=== PATIENT | female | born 1975 | race Caucasian/White ===

== ENCOUNTER 2020-03-01 07:51 | Day surgery (SDC) | payer BC ==
[~2020-03-01] VITALS: Ht 160 cm; Wt 95.0 kg
[2020-03-01] VITALS (10 sets, daily range): BP systolic 42–143; BP diastolic 73–91
[~2020-03-01 07:51] MED LIST: CETI10CA PO
--- OUTSIDE RECORDS SUMMARY | 2020-03-01 07:56 | XMS REPORT | Continuity of Care Document ---
Author Organization Unknown Address Unknown Phone Unavailable Allergies Active Description Code Type Severity Reaction Onset Reported/Identified Relationship to Patient Clinical Status Yes No Known Drug Allergies [id number] Drug Allergy Unknown N/A 03/27/2010 Medications There is no data. Problems There is no data. Procedures There is no data. Results Test Result Range CULTURE, URINE - 04/18/19 09:45 CULTURE, URINE, ROUTINE SEE NOTE NRG CMP - 11/08/19 12:45 GLUCOSE 67 mg/dL 65-99 UREA NITROGEN (BUN) 17 mg/dL 7-25 CREATININE 0.84 mg/dL 0.50-1.10 eGFR NON-AFR. [place] 85 mL/min/1.73m2 > OR = 60 eGFR 98 mL/min/1.73m2 > OR = 60 BUN/CREATININE RATIO NOT APPLICABLE (calc) 6-22 SODIUM 144 mmol/L 135-146 POTASSIUM 3.9 mmol/L 3.5-5.3 CHLORIDE 108 mmol/L 98-110 CARBON DIOXIDE 23 mmol/L 20-32 CALCIUM 10.1 mg/dL 8.6-10.2 PROTEIN, TOTAL 7.3 g/dL 6.1-8.1 ALBUMIN 4.7 g/dL 3.6-5.1 GLOBULIN 2.6 g/dL (calc) 1.9-3.7 ALBUMIN/GLOBULIN RATIO 1.8 (calc) 1.0-2. 5 BILIRUBIN, TOTAL 0.4 mg/dL 0.2-1.2 ALKALINE PHOSPHATASE 73 U/L 31-125 AST 17 U/L 10-30 ALT 16 U/L 6-29 Encounters ACCT No. Visit Date/Time Discharge Status Pt. Type Provider Facility Loc./Unit Complaint [id number] 02/27/2020 14:20:00 ACT Outpatient GURPREET ORDONEZ [facility] [id number] 11/08/2019 12:45:00 Document Registration [id number] 04/18/2019 11:20:00 Document Registration [id number] 02/29/2020 14:41:[address] Outpatient THEO QUINTANA, BALAJI Welch [facility] RAD LT URET STONE [id number] 02/27/2020 12:24:[address] Outpatient HALI EL APRN [facility] RAD FS DYSURIA,HEMATURIA,LT FLANK P AIN
[2020-03-01] MEDS ORDERED: fentaNYL INJECTION 100 MCG/2 ML AMP ONE ×2 (08:41→10:57)
[2020-03-01] MEDS ORDERED: LACTATED RINGERS 1,000 ML IV PRN (08:43)
[2020-03-01] MEDS ORDERED: fentaNYL INJECTION 100 MCG/2 ML AMP IV ONE (08:45)
--- NOTE | 2020-03-01 08:46 | Diagnostic Imaging Report ---
Indication: Left ureteral calculus There is 7 mm calculus projecting over the left proximal ureter. There is 2 mm calculus projecting over the left renal pelvis. IMPRESSION: Left nephrolithiasis and left ureterolithiasis unchanged from the previous day. Dictated by: Dictated on workstation # [id number]
[2020-03-01] MEDS ORDERED: WATER (STERILE) FOR INJECTION 10 ML ONE (08:47)
[2020-03-01] MEDS ORDERED: cefTRIAXone 1,000 MG IV (ROCEPHIN) VIAL ONE (08:47)
--- NOTE | 2020-03-01 09:45 | Progress Note-Pre Operative ---
Pre-Operative Progress Note H&P Reviewed The H&P was reviewed, patient examined and no changes noted. Date Seen by Provider: Mar 01, 2020 Time Seen by Provider: 09:45 Date H&P Reviewed: Mar 01, 2020 Time H&P Reviewed: 09:45 Pre-Operative Diagnosis: LT PROXIMAL URETERAL STONE BALAJI VENEGAS MD Mar 01, 2020 09:45
--- NOTE | 2020-03-01 09:52 | Progress Note-Post Operative ---
Post-Operative Progess Note Surgeon (s)/Director Of Business Systems (s) Surgeon BALAJI VENEGAS MD Director Of Business Systems: NONE Pre-Operative Diagnosis LT PROXIMAL URETERAL STONE Post-Operative Diagnosis SAME Procedure & Operative Findings Date of Procedure 03/01/20 Procedure Performed/Findings CYSTOSCOPY WITH URETERAL STONE MANIPULATION AND INSERTION OF STENT Anesthesia Type GENERAL Estimated Blood Loss Estimated blood loss (mL): NONE Specimens/Packing Specimens Removed NONE Packing: NONE BALAJI VENEGAS MD Mar 01, 2020 09:51
[2020-03-01] MEDS ORDERED: ESTR10TA9 (10:06)
[2020-03-01] MEDS ORDERED: cefTRIAXone FOR IV USE 1,000 MG in WATER (STERILE) FOR INJECTION 10 ML IV ONE (10:15)
[2020-03-01] MEDS ORDERED: SEVOFLURANE (ULTANE) 15 ML INHAL SOLN ONE ×2 (10:57→11:38)
[2020-03-01] MEDS ORDERED: proPOfol 200 MG/20 ML (DIPRIVAN) VIAL IV ONE (10:57)
[2020-03-01] MEDS ORDERED: MIDAZOLAM 2 MG/2 ML (VERSED) VIAL ONE (10:57)
[2020-03-01] MEDS ORDERED: ONDANSETRON 4 MG/2 ML (SDV) Z0FRAN ONE (10:57)
--- NOTE | 2020-03-01 10:57 | Discharge Inst-Urology ---
Discharge Inst-Urology Reconcile Patient Problems Problems Reviewed?: Yes Final Diagnosis LT PROXIMAL URETERAL STONE Patient Instructions/Follow Up Plan/Assessment/Instructions Please make appointment to been seen in office in 1 week. KUB prior to it KUB on way home Increase oral fluids for 48 hours and then as needed. Diet and Activity as tolerated. If questions or concerns contact your physician Or seek help at emergency department. BALAJI VENEGAS MD Mar 01, 2020 10:56
[2020-03-01] MEDS ORDERED: HYDROmorphone 2 MG/ML VIAL (DILAUDID) IV ONE (11:45)
[2020-03-01] MEDS ORDERED: ONDANSETRON 4 MG/2 ML (SDV) Z0FRAN IVP PRN (11:45)
--- NOTE | 2020-03-01 12:15 | Anesthesia-General Post-Op ---
General Patient Condition Mental Status/LOC: Same as Preop Cardiovascular: Satisfactory Nausea/Vomiting: Absent Respiratory: Satisfactory Pain: Controlled Complications: Absent Post Op Complications Complications None Follow Up Care/Instructions Patient Instructions None needed. Anesthesia/Patient Condition Patient Condition Patient is doing well, no complaints, stable vital signs, no apparent adverse anesthesia problems. No complications reported per nursing. D/C home per [facility] [place] Criteria: Yes PREETHI CORONA CRNA Mar 01, 2020 12:15
[2020-03-01] MEDS ORDERED: TMSL.4C PO (12:41)
[2020-03-01] MEDS ORDERED: NITR-65 PO (12:41)
[2020-03-01] MEDS ORDERED: PHEN-640 PO (12:41)
[2020-03-01] MEDS ORDERED: TRM50T PO (12:41)
--- NOTE | 2020-03-01 15:12 | Diagnostic Imaging Report ---
INDICATION: Stent placement. TIME OF EXAM: 01:25 p.m. COMPARISON: Correlation is made with prior radiograph from earlier same day. FINDINGS: There has been placement of a double-J nephroureteral stent on the left. This stent extends from the region of left kidney to into the bladder. A calculus in proximal left ureter is adjacent to the proximal aspect of the stent. No other calculi along the course of the stent are identified. No right-sided urinary tract calculi are seen. Bowel gas pattern is unremarkable. IMPRESSION: Left-sided ureteral stent placement, as described. Dictated by: Dictated on workstation # [id number]
--- NOTE | 2020-03-01 22:07 | OPERATIVE REPORT ---
DATE OF SERVICE: 03/01/2020 PREOPERATIVE DIAGNOSIS: Left proximal ureteral stone. POSTOPERATIVE DIAGNOSIS: Left proximal ureteral stone. OPERATION PERFORMED: Cystoscopy with left ureteral stone manipulation and insertion of stent. SURGEON: Justin Venegas MD ANESTHESIA: General. COMPLICATIONS: None. DESCRIPTION OF PROCEDURE: Under satisfactory general anesthesia, the patient in lithotomy position, genitalia were prepped and draped in the usual sterile fashion. A 23-Burmese cystoscope was introduced in the bladder. A 6-Burmese 24 cm double-J stent was passed into the hole of the ureteral orifice guided fluoroscopically to the level of the stone. With some manipulation, I was able to bypass the stone and all the way to the left renal pelvis, removed the guidewire. Stent was seen jetting nicely proximally fluoroscopically and distally endoscopically. Bladder was evacuated and the cystoscope was removed. The patient tolerated the procedure and anesthesia well and was sent to recovery room in stable condition. PLAN: Left ESWL with possible removal of stent in couple of weeks when the machine will be back here. The plan was explained previously to the patient and to her after the surgery. Job ID: [id number] DocumentID: [id number] Dictated Date: 03/01/2020 11:47:51 Curve Cleaner Date: 03/01/2020 22:07:15 Dictated By: JUSTIN VENEGAS MD
== END 2020-03-01 14:20 | disposition home or self-care (01) ==
LOC: SDC 07:51
PROVIDERS: ATTEND Urology
DX: N20.1 Calculus of ureter (principal); N20.0 Calculus of kidney; K21.9 Gastro-esophageal reflux disease without esophagitis; Z79.890 Hormone replacement therapy; Z90.79 Acquired absence of other genital organ(s); Z11.2 Encounter for screening for other bacterial diseases
CPT/HCPCS: 52332; 74018; 76000; 87081; C2625

== ENCOUNTER → 2020-03-05 | Outpatient (CLI) | payer BC ==
[~2020-03-05] MED LIST changes: +ESTR10TA9; +NITR-65 PO; +PHEN-640 PO; +TMSL.4C PO; +TRM50T PO
--- NOTE | 2020-03-05 13:46 | Diagnostic Imaging Report ---
INDICATION: Left ureteral stone. TIME OF EXAM: 12:10 PM. COMPARISON: 03/01/2020. FINDINGS: A left-sided double-J nephroureteral stent is again noted. The calculus adjacent to the proximal aspect of the stent 4 days ago now appears to have migrated and now overlies the tip of the stent in the region of the lower pole of the left kidney. There is a tiny approximately 2 mm calcific density adjacent to the distal aspect of the stent in the left hemipelvis, perhaps a tiny distal left ureteric calculus. There are post surgical changes in the pelvis. The bowel gas pattern is unremarkable. IMPRESSION: 1. Left-sided nephroureteral stent. The larger proximal left ureteric calculus appears to have slightly migrated and now overlies the lower pole of the left kidney. 2. A tiny calcific density overlies the distal aspect of the stent in the distribution of the distal left ureter. Dictated by: Dictated on workstation # [id number]
== END ==
LOC: RAD 11:51
PROVIDERS: ATTEND Urology
DX: N20.1 Calculus of ureter (principal); Z96.0 Presence of urogenital implants
CPT/HCPCS: 74018

== ENCOUNTER 2020-03-12 12:30 | Outpatient (CLI) | payer BC ==
[~2020-03-12] VITALS: Ht 165.1 cm; Wt 95.5 kg
[2020-03-13] MEDS ORDERED: TRM50T PO (12:14)
[2020-03-13] MEDS ORDERED: NITR-65 PO (12:14)
== END 2020-03-12 12:55 | disposition home or self-care (01) ==
LOC: PREOP 12:30
PROVIDERS: ATTEND Urology
DX: Z01.818 Encounter for other preprocedural examination (principal)

== ENCOUNTER 2020-03-13 07:40 | Day surgery (SDC) | payer BC ==
[~2020-03-13] VITALS: Ht 165.1 cm; Wt 95.5 kg
[2020-03-13] VITALS (11 sets, daily range): BP systolic 111–139; BP diastolic 70–89
[2020-03-13] MEDS ORDERED: LACTATED RINGERS 1,000 ML IV PRN (08:09)
[2020-03-13] MEDS ORDERED: cefTRIAXone FOR IV USE 1,000 MG in WATER (STERILE) FOR INJECTION 10 ML IV ONE (08:15)
--- NOTE | 2020-03-13 08:38 | Progress Note-Pre Operative ---
Pre-Operative Progress Note H&P Reviewed The H&P was reviewed, patient examined and no changes noted. Date Seen by Provider: Mar 13, 2020 Time Seen by Provider: 08:37 Date H&P Reviewed: Mar 13, 2020 Time H&P Reviewed: 08:37 Pre-Operative Diagnosis: LT RENAL STONE BALAJI VENEGAS MD Mar 13, 2020 08:38
--- NOTE | 2020-03-13 08:58 | Diagnostic Imaging Report ---
INDICATION: Renal calculi. COMPARISON: 03/05/2020 TECHNIQUE: 2 radiographs of abdomen dated 03/13/2020. FINDINGS: Previously noted left ureteral stent has been removed. 7 mm stone overlying the inferior pole of the left kidney is again identified, appearing stable. Additional 3 mm calcification overlying the superior pole of the left kidney is again identified and stable. 2 rounded calcifications are identified within the lower pelvis, in a similar configuration to prior exams. Prior CT demonstrated these relate to phleboliths. Postsurgical changes within the lower pelvis bilaterally again noted. No calcifications overlying the right renal shadow. Nonobstructive bowel gas pattern. No acute osseous abnormality. Calcifications overlying the right upper quadrant of the abdomen are again noted. IMPRESSION: Stable left renal calculi, including 7 mm stone overlying the inferior pole of the left kidney. Stable calcifications within the lower pelvis bilaterally, felt to relate to phleboliths. Cholelithiasis. Dictated by: Dictated on workstation # [id number]
[2020-03-13] MEDS ORDERED: fentaNYL INJECTION 100 MCG/2 ML AMP ONE (09:17)
[2020-03-13] MEDS ORDERED: MIDAZOLAM 2 MG/2 ML (VERSED) VIAL ONE (09:17)
[2020-03-13] MEDS ORDERED: proPOfol 200 MG/20 ML (DIPRIVAN) VIAL IV ONE (09:17)
[2020-03-13] MEDS ORDERED: LIDOCAINE PF 2% 5 ML (XYLOCAINE) VIAL ONE (09:17)
--- NOTE | 2020-03-13 09:48 | Discharge Inst-Urology ---
Discharge Inst-Urology Reconcile Patient Problems Problems Reviewed?: Yes Final Diagnosis LT RENAL STONE Patient Instructions/Follow Up Plan/Assessment/Instructions Please make appointment to been seen in office Tuesday 03/27, KUB prior to it KUB on way home Post ESWL instructions Increase oral fluids for 48 hours and then as needed. Diet and Activity as tolerated. If questions or concerns contact your physician Or seek help at emergency department. BALAJI VENEGAS MD Mar 13, 2020 09:48
--- NOTE | 2020-03-13 09:49 | Progress Note-Post Operative ---
Post-Operative Progess Note Surgeon (s)/Tamping Machine Operator Road Forms (s) Surgeon BALAJI VENEGAS MD Tamping Machine Operator Road Forms: NONE Pre-Operative Diagnosis LT RENAL STONE Post-Operative Diagnosis SAME Procedure & Operative Findings Date of Procedure 03/13/20 Procedure Performed/Findings LT ESWL Anesthesia Type GENERAL Estimated Blood Loss Estimated blood loss (mL): NONE Specimens/Packing Specimens Removed NONE Packing: NONE BALAJI VENEGAS MD Mar 13, 2020 09:48
[2020-03-13] MEDS ORDERED: SEVOFLURANE (ULTANE) 15 ML INHAL SOLN ONE ×2 (09:55)
[2020-03-13] MEDS ORDERED: KETOROLAC 30 MG/ML VIAL ONE (09:55)
[2020-03-13] MEDS ORDERED: ONDANSETRON 4 MG/2 ML (SDV) Z0FRAN ONE (09:55)
[2020-03-13] MEDS ORDERED: FUROSEMIDE 40 MG/4 ML INJ (LASIX) ONE (09:55)
[2020-03-13] MEDS ORDERED: MEPERIDINE (DEMEROL) INJ 50 MG/ML IVP ONE (10:30)
[2020-03-13] MEDS ORDERED: morphine INJ 10 MG/ML 1ML (SYR OR VIAL) IVP ONE (10:30)
[2020-03-13] MEDS ORDERED: fentaNYL INJECTION 100 MCG/2 ML AMP IVP ONE (10:30)
[2020-03-13] MEDS ORDERED: ONDANSETRON 4 MG/2 ML (SDV) Z0FRAN IVP PRN (10:30)
--- NOTE | 2020-03-13 11:15 | NUR ---
FULLY ALERT, RATES PELVIC DISCOMFORT 2 AND TOLERABLE. PO FLUIDS PROVIDED.
--- NOTE | 2020-03-13 11:25 | Anesthesia-General Post-Op ---
General Patient Condition Mental Status/LOC: Same as Preop Cardiovascular: Satisfactory Nausea/Vomiting: Absent Respiratory: Satisfactory Pain: Controlled Complications: Absent Post Op Complications Complications None Follow Up Care/Instructions Patient Instructions None needed. Anesthesia/Patient Condition Patient Condition Patient is doing well, no complaints, stable vital signs, no apparent adverse anesthesia problems. No complications reported per nursing. YOVANNY MONIQUE CRNA Mar 13, 2020 11:25
--- NOTE | 2020-03-13 11:55 | Diagnostic Imaging Report ---
INDICATION: Status post ESWL. COMPARISON: Earlier same day. FINDINGS: Single frontal radiograph view of the abdomen was obtained and again demonstrates extraosseous calcifications projecting over the left renal fossa. These appear stable in size and position when compared to earlier same day. No new extraosseous calcifications or radiopaque foreign bodies are seen. Small bowel loops are nondistended. There is no large collection of free intraperitoneal air. Osseous structures show no gross acute abnormalities. IMPRESSION: 1. Stable left-sided renal calculi. Dictated by: Dictated on workstation # [id number]
[2020-03-13] MEDS ORDERED: NITR-65 PO (12:14)
[2020-03-13] MEDS ORDERED: TRM50T PO (12:14)
--- NOTE | 2020-03-13 12:15 | NUR ---
VOIDED 500 CC CLEAR, VERY LIGHT PINK URINE WITHOUT PROBLEM. URINE STRAINED, NO STONE FRAGMENTS OBTAINED. REQUESTING DISMISSAL.
--- NOTE | 2020-03-13 17:21 | OPERATIVE REPORT ---
DATE OF SERVICE: 03/13/2020 PREOPERATIVE DIAGNOSIS: Left renal stone. POSTOPERATIVE DIAGNOSIS: Left renal stone. OPERATION PERFORMED: Left ESWL. SURGEON: Justin Venegas MD ANESTHESIA: General. COMPLICATIONS: None. DESCRIPTION OF PROCEDURE: Under satisfactory general anesthesia, the patient in supine position on the ESWL table, the left renal stone was localized. Shocks were delivered at kV of 6. Total of 3000 shocks completely fragmented the stone. The patient received 40 mg of Lasix and 30 mg of Toradol IV at the end of the procedure. He tolerated the procedure and anesthesia well and was sent to recovery room in stable condition. Job ID: [id number] DocumentID: [id number] Dictated Date: 03/13/2020 10:12:02 Chemist Physical Date: 03/13/2020 17:20:35 Dictated By: JUSTIN VENEGAS MD
== END 2020-03-13 12:28 | disposition home or self-care (01) ==
LOC: SDC 07:40
PROVIDERS: ATTEND Urology
DX: N13.2 Hydronephrosis with renal and ureteral calculous obstruction (principal); Z11.2 Encounter for screening for other bacterial diseases; Z79.890 Hormone replacement therapy
CPT/HCPCS: 74018; 87081

== ENCOUNTER → 2020-11-05 | Outpatient (CLI) | payer BC ==
[~2020-11-05] MED LIST changes: +CATHETER FLUSH 10 ML SYR IV PRN
--- NOTE | 2020-11-05 09:42 | Diagnostic Imaging Report ---
INDICATION: Gallstones and abdominal pain. TECHNIQUE: The patient was administered 5.5 mCi of technetium 99m Choletec intravenously and imaging over the abdomen was performed. FINDINGS: There is homogeneous uptake of activity by the liver. There is prompt excretion of activity into the common duct with passage into the small bowel. The gallbladder is nonvisualized out to 105 minutes. IMPRESSION: Nonvisualized gallbladder, concerning for cholecystitis. Dictated by: Dictated on workstation # [id number]
== END ==
LOC: CARD 07:00
PROVIDERS: ATTEND Nurse Practitioner Family
DX: K80.20 Calculus of gallbladder without cholecystitis without obstruction (principal)
CPT/HCPCS: 78226; A9537

== ENCOUNTER 2020-11-21 05:33 | Outpatient (CLI) | payer BC ==
[~2020-11-21] VITALS: Ht 162.6 cm; Wt 95.5 kg
[~2020-11-21 05:33] MED LIST changes: -CATHETER FLUSH 10 ML SYR IV PRN
[2020-11-21] MEDS ORDERED: OXYB-52 PO (11:17)
[2020-11-21] MEDS ORDERED: ESTR2TAB PO (11:17)
[2020-11-21] MEDS ORDERED: FLUT16SP22 NS (11:17)
== END 2020-11-21 12:24 | disposition home or self-care (01) ==
LOC: PREOP 05:33
PROVIDERS: ATTEND Surgery
DX: Z01.818 Encounter for other preprocedural examination (principal)

== ENCOUNTER 2020-11-28 06:50 | Day surgery (SDC) | payer BC ==
[~2020-11-28] VITALS: Ht 166 cm; Wt 95.5 kg
[2020-11-28] VITALS (12 sets, daily range): BP systolic 116–142; BP diastolic 66–92
[~2020-11-28 06:50] MED LIST changes: +ESTR2TAB PO; +FLUT16SP22 NS; +OXYB-52 PO
[2020-11-28] MEDS ORDERED: IOPAMIDOL 61% 30 ML (ISOVUE 300) VIAL ONE (07:11)
[2020-11-28] MEDS ORDERED: LIDOCAINE/EPI 1%-1:100,000 (XYLOCAINE) 20ML ONE (07:12)
[2020-11-28] MEDS ORDERED: ceFAZolin 2 GM IV Premixed 50 ML ONE (07:21)
[2020-11-28] MEDS ORDERED: fentaNYL INJ 100 MCG/2 ML AMP ONE (07:30)
[2020-11-28] MEDS ORDERED: LIDOCAINE PF 2% 5 ML (XYLOCAINE) VIAL ONE (07:30)
[2020-11-28] MEDS ORDERED: LACTATED RINGERS 1,000 ML IV PRN (07:30)
[2020-11-28] MEDS ORDERED: MIDAZOLAM 2 MG/2 ML (VERSED) VIAL ONE (07:30)
[2020-11-28] MEDS ORDERED: proPOfol 200 MG/20 ML (DIPRIVAN) VIAL IV ONE (07:30)
[2020-11-28] MEDS ORDERED: ROCURONIUM 10 MG/ML 5 ML SYRINGE IV ONE ×2 (07:30→08:37)
[2020-11-28] MEDS ORDERED: ceFAZolin 2 GM IV Premixed 50 ML IV ONE (07:30)
[2020-11-28] MEDS ORDERED: SEVOFLURANE (ULTANE) 15 ML INHAL SOLN ONE ×4 (07:30→08:37)
--- NOTE | 2020-11-28 08:24 | Progress Note-Pre Operative ---
Pre-Operative Progress Note H&P Reviewed The H&P was reviewed, patient examined and no changes noted. Time Seen by Provider: 08:21 Date H&P Reviewed: November 28, 2020 Time H&P Reviewed: 08:22 Pre-Operative Diagnosis: Cholelithiasis/cholecystitis NIKKI HOROWITZ DO November 28, 2020 08:24
[2020-11-28] MEDS ORDERED: ONDANSETRON 4 MG/2 ML (SDV) Z0FRAN ONE ×3 (08:37→12:11)
[2020-11-28] MEDS ORDERED: SUCCINYLCHOLINE INJ 100 MG/5 ML SYR/VIAL ONE (08:37)
[2020-11-28] MEDS ORDERED: GLYCOPYRROLATE 0.2 MG/ML (ROBINUL) 2 ML VIAL ONE (08:50)
[2020-11-28] MEDS ORDERED: NEOSTIGMINE 3 MG/3 ML VIAL ONE (08:50)
[2020-11-28] MEDS ORDERED: KETOROLAC 30 MG/ML VIAL ONE (08:50)
[2020-11-28] MEDS ORDERED: PHENYLEPHRINE 100 MCG/ML 10 ML (ANESTHESIA) SYR ONE ×2 (09:11)
[2020-11-28] MEDS ORDERED: morphine INJ 10 MG/ML 1ML (SYR OR VIAL) ONE (09:13)
--- NOTE | 2020-11-28 09:23 | Progress Note-Post Operative ---
Post-Operative Progess Note Surgeon (s)/Contractor General Engineering (s) Surgeon NIKKI HOROWITZ DO Contractor General Engineering: Mo Pre-Operative Diagnosis Cholelithiasis/cholecystitis Post-Operative Diagnosis same Procedure & Operative Findings Date of Procedure 11/28/20 Procedure Performed/Findings PROCEDURE: Laparoscopic cholecystectomy with intraoperative cholangiogram. COMPLICATIONS: None. PROCEDURE: The patient was taken to the operating suite and was prepped and draped in sterile fashion. A surgical pause was performed. Just superior to the umbilicus, a 12 mm incision was made. Dissection was taken down to the fascia, which was then scored and grasped with a Mckenzie and the abdomen was then entered. A 0 Vicryl suture was placed in a paecbr-[id number]-[id number] fashion and a German trocar was placed and secured. Pneumoperitoneum was achieved. A 5mm trochar place in the subxyphoid and 2 in the right upper quadrant. The gallbladder was noted to be contracted and full of stones. Grasped at the fundus and taken in the superior direction. Next attempted to grasp down at teixeira's pouch and pull infero-laterally, but there was a large stone impacted down there. The cystic duct, and cystic artery were then dissected out. The Artery was in the way so it was clipped and cut first. Clip was placed on the distal portion of the cystic duct which was then partially transected. An arrow catheter was inserted into the duct. The cholangiogram was then performed. No filing defects and contrast made its way into the duodenum. Catheter removed. Clips were placed on proximal portion of the cystic duct and then the duct was then transected. Hook cautery was used to dissect the gallbladder from the gallbladder fossa achieving hemostasis. The gallbladder was placed in an Endobag and removed through the 12 mm trocar site. The abdomen was then reinspected. Copious amounts of irrigation were used to irrigate the abdomen and there were no signs of active bleeding. Hemostasis had been achieved. The 12 mm fascial defect was then closed with 0 Vicryl suture that had been placed in a [id number]-[id number]-yeazx fashion. The abdomen was then desufflated, the trocars were removed. The abdomen was then washed and dried. The skin was then closed using 4-0 Monocryl in a subcuticular fashion. The abdomen was washed and dried and Skin Affix was place over incisions. Patient tolerated the procedure well without any complications and was taken to the recovery room in stable condition. Dr. Hassan assisted on this case helping to make incisions, close incisions, identify anatomy and hold anatomy out of the way. Anesthesia Type GET Estimated Blood Loss Estimated blood loss (mL): less than 10ml Specimens/Packing Specimens Removed GB and contents NIKKI HOROWITZ DO November 28, 2020 09:23
[2020-11-28] MEDS ORDERED: ACHD5005 PO (09:24)
--- NOTE | 2020-11-28 09:25 | Discharge Inst-Surgical ---
Discharge Inst-Surgical Depart Medication/Instructions New, Converted or Re-Newed RX: RX Given to Pt/Family Patient Instructions Follow up Appt: Make appointment for 1 week. [phone] Instructions: No lifting greater than 20 pounds. No strenuous activity. May shower in 24 hours, no tub bath or soaking. Use incentive spirometer at home as directed. No Smoking Skin/Wound Care: May remove bandages in am. You need to leave the Dermabond on incision it will fall off on it's own. Symptoms to Report: Appetite Changes, Extremity Discoloration, Numbness/Tingling, Swelling Increased, Bleeding Excessive, Eyesight Changes, Pain Increased, Urine Color Change, Constipation(Persistent), Fever over 101 degree F, Pain/Pressure in chest, Urinating Difficulty, Cough Up/Vomit Blood, Heart Beat Irreg/Pounding, Pain/Pressure in jaw, Cramps in feet or legs, Lightheadedness, Pain/Pressure in shoulder, Diarrhea(Persistent), Memory Changes Suddenly, Questions/Concerns, Weight gain consecutive days, Dizziness/Fainting, Nausea/Vomiting, Shortness of Breath, Weight gain over 2 pounds If questions or concerns contact your physician Or seek help at emergency department. Activity Activity as Tolerated: Yes Activity Instructions: Avoid Stress to Incision Driving Instructions: No Driving/Refer to Diet Discharge Diet: Avoid Fatty Foods, Low Fat/Low Cholesterol If Any Problems/Questions/Issu: Contact Your Physician, Go to Emergency Room Skin/Wound Care Infection Signs and Symptoms: Increased Redness, Foul Odor of Wound, Increased Drainage, Skin Itchy or Has a Rash, Increased Swelling, Temperature Above 101 F Wound Care Comment: heating pad to shoulder or neck for pain tonight Bathing Instructions: Shower Stitches/Griselda/Dermabond Dis: Dermabond Ice Pack: Ice On and Off Site NIKKI HOROWITZ DO November 28, 2020 09:25
[2020-11-28] MEDS: HYDROmorphone 2 MG/ML VIAL (DILAUDID) ONE (09:53)
--- NOTE | 2020-11-28 11:28 | Diagnostic Imaging Report ---
INDICATION: Fluoroscopy for intraoperative cholangiogram. FINDINGS: Fluoroscopy was provided in the OR during intraoperative cholangiogram. 13 seconds of fluoroscopic time was utilized. 77 images were obtained. Images demonstrate contrast being injected via the cystic duct remnant. The intrahepatic and extrahepatic bile ducts are of normal caliber. There is no filling defect to suggest a retained stone. Contrast flows into the duodenum. IMPRESSION: Fluoroscopy during intraoperative cholangiogram. Dictated by: Dictated on workstation # [id number]
[2020-11-28] MEDS ORDERED: HYDROcodone/APAP 5 MG/325 MG (LORTAB) TAB ONE (12:10)
[2020-11-28] MEDS ORDERED: ONDANSETRON 4 MG/2 ML (SDV) Z0FRAN IVP ONE (12:15)
[2020-11-28] MEDS ORDERED: HYDROcodone/APAP 5 MG/325 MG (LORTAB) TAB PO ONE (12:15)
--- NOTE | 2020-11-28 13:14 | Anesthesia-General Post-Op ---
General Patient Condition Mental Status/LOC: Same as Preop Cardiovascular: Satisfactory Nausea/Vomiting: Absent Respiratory: Satisfactory Pain: Controlled Complications: Absent Post Op Complications Complications None Follow Up Care/Instructions Patient Instructions None needed. Anesthesia/Patient Condition Patient Condition Patient is doing well, no complaints, stable vital signs, no apparent adverse anesthesia problems. No complications reported per nursing. ALEXX CUI CRNA November 28, 2020 13:14
[2020-11-28] MEDS ORDERED: PROMETHAZINE INJ 25 MG/ML (PHENERGAN) AMP IVP ONE (13:15)
== END 2020-11-28 14:45 | disposition home or self-care (01) ==
LOC: SDC 06:50
PROVIDERS: ATTEND Surgery
DX: K80.12 Calculus of gallbladder with acute and chronic cholecystitis without obstruction (principal); K21.9 Gastro-esophageal reflux disease without esophagitis; Z79.899 Other long term (current) drug therapy; Z90.710 Acquired absence of both cervix and uterus; Z79.891 Long term (current) use of opiate analgesic; Z83.3 Family history of diabetes mellitus
CPT/HCPCS: 36430; 76000; 87081; 88304; 94664

== ENCOUNTER → 2022-08-29 | Outpatient (CLI) | payer BC ==
[~2022-08-29] MED LIST changes: +ACHD5005 PO; -ESTR2TAB PO; +ESTR2TAB3 PO
--- NOTE | 2022-08-29 16:52 | Diagnostic Imaging Report ---
INDICATION: HX OF CALCULUS OF KIDNEY COMPARISON: 03/13/2020 FINDINGS: Single supine radiographic view of the abdomen was obtained and demonstrates nondistended loops of small bowel. There is no large collection of free peritoneal air. Mild air and stool are seen scattered throughout the colon. No unexpected extraosseous calcifications or radiopaque foreign bodies are seen. Bony structures show no gross acute abnormalities. IMPRESSION: 1. Nonobstructed small bowel gas pattern. 2. No unexpected extraosseous calcifications or radiopaque foreign bodies are seen. Dictated by: Dictated on workstation # [id number]
== END ==
LOC: RAD FS 14:03
PROVIDERS: ATTEND Urology
DX: Z87.442 Personal history of urinary calculi (principal)
CPT/HCPCS: 74018

== ENCOUNTER 2022-09-29 01:10 | Emergency (ER) | payer BC ==
[2022-09-29] MEDS ORDERED: NS IV 1000 ML 1,000 ML IV STA (01:17)
--- NOTE | 2022-09-29 01:21 | ED General ---
General Chief Complaint: Allergic Reaction Stated Complaint: ALLERGIC REACTION Source of Information: Patient Exam Limitations: No Limitations History of Present Illness Date Seen by Provider: Sep 29, 2022 Time Seen by Provider: 01:12 Initial Comments 46-year-old female presenting due to concerns for an allergic reaction. She had some roast for dinner with a new seasoning, about an hour and a half later noticed a sore throat, shortly after that noticed some hives. About an hour ago noticed her lip was swelling and she feels chest tightness. This is never happened before. Has not taking any new medicines, no new detergents or soaps, and nothing else she can think of such as an insect bite. The only thing she can think of was the new seasoning on the dinner. She is otherwise denying any other acute complaints. Allergies and Home Medications Allergies Coded Allergies: No Known Drug Allergies (Unverified , 03/27/10) Patient Home Medication List Home Medication List Reviewed: Yes Epinephrine (Epinephrine) 0.3 Mg/0.3 Ml Auto.injct, 0.3 MG IM q15 min PRN for anaphylaxis Prescribed by: DINA ENRIQUEZ on 09/29/22 0150 Estradiol (Estradiol Tablet) 2 Mg Tablet, 2 MG PO DAILY, (Reported) Entered as Reported by: RICKIE TRINIDAD on 11/21/20 1117 Fluticasone Propionate (Fluticasone Propionate) 16 Gm [place].susp, 2 SPRAYS NS DAILY, (Reported) Entered as Reported by: RICKIE TRINIDAD on 11/21/20 1117 Hydrocodone Bit/Acetaminophen (HYDROcodone/APAP 5 MG/325 MG TAB) 1 Tab Tab, 1 TAB PO Q8H PRN for PAIN-MODERATE (5-7) Prescribed by: NIKKI HOROWITZ on 11/28/20 0924 Oxybutynin Chloride (Oxybutynin Chloride ER) 5 Mg Tab.er.24, 5 MG PO DAILY, (Reported) Entered as Reported by: RICKIE TRINIDAD on 11/21/20 1117 Review of Systems Review of Systems Constitutional: No fever EENTM: see HPI Respiratory: see HPI Cardiovascular: no symptoms reported Gastrointestinal: no symptoms reported Genitourinary: no symptoms reported Musculoskeletal: no symptoms reported Skin: see HPI Psychiatric/Neurological: No Symptoms Reported Past Fufmgpu-[id number]-Acgqmo Hx Patient Social History Tobacco Use?: No Use of E-Cig and/or Vaping dev: No Substance use?: No Alcohol Use?: No Pt feels they are or have been: No Seasonal Allergies Seasonal Allergies: Yes Past Medical History Surgeries: Yes (lithrotripsy) Section, Hysterectomy Respiratory: No Currently Using CPAP: No Currently Using BIPAP: No Cardiac: No Neurological: No 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 oz. kg; 34.65 BMI Method: General Appearance: No Apparent Distress, WD/WN Eyes: Bilateral Eye Normal Inspection, Bilateral Eye PERRL, Bilateral Eye Abnormal EOM HEENT: PERRL/EOMI, Pharynx Normal, Other (Lower lip swollen) Neck: Full Range of Motion, Normal Inspection, Non Tender, Supple Respiratory: Chest Non Tender, Lungs Clear, Normal Breath Sounds, No Accessory Muscle Use, No Respiratory Distress Cardiovascular: Regular Rate, Rhythm, No Edema, Normal Peripheral Pulses Gastrointestinal: Normal Bowel Sounds, Non Tender, Soft; No Distended, No Guarding Back: Normal Inspection, No CVA Tenderness, No Vertebral Tenderness Extremity: Normal Capillary Refill, Normal Inspection, Normal Range of Motion, Non Tender, No Calf Tenderness, No Pedal Edema Neurologic/Psychiatric: Alert, No Motor/Sensory Deficits, Normal Mood/Affect Skin: Other (Scattered urticaria that is blanching) Lymphatic: No Adenopathy Progress/Results/Core Measures Suspected Sepsis SIRS Temperature: Pulse: Respiratory Rate: Blood Pressure / Mean: Results/Orders My Orders Orders - DINA ENRIQUEZ MD Epinephrine 1 Mg Injection (Adrenalin I (09/29/22 01:30) Diphenhydramine Injection (Benadryl Inje (09/29/22 01:30) Famotidine Injection (Pepcid Injection) (09/29/22 01:30) Dexamethasone Injection (Decadron Injec (09/29/22 01:30) Ns Iv 1000 Ml (Sodium Chloride 0.9%) (09/29/22 01:17) Ed Iv/Invasive Line Start (09/29/22 01:36) Epinephrine 1 Mg Injection (Adrenalin I (09/29/22 02:00) Epinephrine 1 Mg Injection (Adrenalin I (09/29/22 02:00) Albuterol Inhaler (Albuterol) (09/29/22 02:29) Epinephrine 1 Mg Injection (Adrenalin I (09/29/22 02:45) Epinephrine (Pyxis Drip Kit) (Epinephrin (09/29/22 02:35) Ns (Ivpb) (Sodium Chloride 0.9%) (09/29/22 02:36) Medications Given in ED Current Medications Medications Dose Ordered Sig/Angus Route Start Time Stop Time Status Last Admin Dose Admin Dexamethasone Sodium Phosphate 10 mg ONCE ONCE IV 09/29/22 01:30 09/29/22 01:31 DC 09/29/22 01:26 10 MG Diphenhydramine HCl 25 mg ONCE ONCE IVP 09/29/22 01:30 09/29/22 01:31 DC 09/29/22 01:26 25 MG Epinephrine HCl 0.3 mg ONCE ONCE IM 09/29/22 01:30 09/29/22 01:31 DC 09/29/22 01:24 0.3 MG Epinephrine HCl 0.3 mg ONCE ONCE IM 09/29/22 02:00 09/29/22 02:01 DC 09/29/22 01:52 0.3 MG Epinephrine HCl 0.5 mg ONCE ONCE IM 09/29/22 02:45 09/29/22 02:46 DC 09/29/22 02:39 0.5 MG Famotidine 40 mg ONCE ONCE IVP 09/29/22 01:30 09/29/22 01:31 DC 09/29/22 01:26 40 MG Vital Signs/I&O 09/29/22 09/29/22 09/29/22 09/29/22 01:13 01:24 01:52 02:39 Pulse 94 89 88 98 Resp 18 B/P (MAP) 131/77 (95) 131/77 128/63 95/67 Pulse Ox 98 O2 Delivery Room Air 09/29/22 05:38 Pulse 97 Resp 18 B/P (MAP) 115/52 Pulse Ox 96 Capillary Refill : Progress Note : Progress Note 46-year-old female presenting for an allergic reaction. ABCs were intact and vitals were stable on presentation. Physical exam with lower lip swelling and urticaria. She does have some chest tightness associated with that, no GI symptoms. I do not hear any wheezing, she does not appear short of breath, oxygen is normal, but given the chest tightness with it, I am concerned for early anaphylaxis. She was given an IM injection of epinephrine 0.3 mg x 2, IV Benadryl, Pepcid, fluids, and inhaled albuterol as well. Her heart rate remained steady around 85 even after getting the epinephrine. She really did not feel any different after getting it. My biggest concern was for her body habitus and adiposity that the needle was not reaching intramuscularly. We give a third dose of 0.5 mg with a longer needle and on reevaluation she did have an increase in heart rate, and this time she felt like she received epinephrine. Started to have significant improvement after this dose. We had considered an epinephrine drip, but I truly believe this was the first dose that made it intramuscularly and was as effective rapidly. We monitored her for a couple hours after the dose with continued improvement. I believe she is otherwise stable for discharge with outpatient follow-up. She was sent home with strict return precautions. Critical Care Note Critical Care Start Time: 01:12 Stop Time: 05:30 Total Time (minutes) 78 Progress The patient was undergoing anaphylaxis with significant risk of respiratory and/or hemodynamic compromise. She required multiple doses of IM epinephrine with consideration for an epi drip. Was frequently at the bedside reassessing the patient Departure Impression Primary Impression: Anaphylaxis Qualified Codes: T78.2XXA - Anaphylactic shock, unspecified, initial encounter Disposition: HOME, SELF-CARE Condition: Improved Departure-Patient Inst. Decision time for Depature: 05:50 Referrals: HALI EL APRN (PCP) Primary Care Physician [facility] (Family) Primary Care Physician Patient Instructions: Anaphylaxis Add. Discharge Instructions: We do believe that you had a case of mild anaphylaxis which is an extreme allergy that is life-threatening. If you just develop hives in the future with the swollen lips, then it is okay to take [id number] Zyrtec as well as your Pepcid. If you develop the symptoms with wheezing/shortness of breath, vomiting, or severe abdominal cramping, would want you to use the EpiPen that has been sent to your pharmacy. You can use this followed by a second one 15 minutes later. If you use your EpiPen, we want you to be coming to the ER. Scripts Epinephrine (Epinephrine) 0.3 Mg/0.3 Ml Auto.injct 0.3 MG IM q15 min PRN for anaphylaxis for 1 Day, #2 EA 1 Refill Prov: DINA ENRIQUEZ MD 09/29/22 Work/School Note: Family Work Note, Patient Received Medical Care In the Emergency Department On: Sep 29, 2022 Patient Will Be Able to Return to Work/School On: Sep 30, 2022 Work Release Form Date Seen in the Emergency Department: Sep 29, 2022 Return to Work: Sep 30, 2022 Restrictions: No Restrictions DINA ENRIQUEZ MD Sep 29, 2022 01:21
[2022-09-29] MEDS ORDERED: EPINEPHrine INJECTION 1 MG/ML AMP IM ONE ×3 (01:30→02:45)
[2022-09-29] MEDS ORDERED: diphenhydrAMINE 50 MG/ML INJ (BENADRYL) IVP ONE (01:30)
[2022-09-29] MEDS ORDERED: FAMOTIDINE 20MG/2ML IV (PEPCID) IVP ONE (01:30)
[2022-09-29] MEDS ORDERED: EPIN0.3P18 IM (01:50)
[2022-09-29] MEDS ORDERED: EPINEPHrine INJECTION 1 MG/ML AMP IM PRN (02:00)
[2022-09-29] MEDS ORDERED: EPINEPHrine 1 MG INJECTION 4 MG in NS (IVPB) 246 ML IV STA (02:24)
[2022-09-29] MEDS ORDERED: RT-ALBUTEROL HFA 8.5 GM INHALER IH STA (02:29)
[2022-09-29] MEDS ORDERED: EPINEPHrine (PYXIS DRIP KIT ONLY) 1 MG/ML X 4 AMPS ONE (02:35)
[2022-09-29] MEDS ORDERED: NS (IVPB) 0 ML ONE (02:36)
[2022-09-29 05:38] VITALS: BP 115/52
== END 2022-09-29 05:45 | disposition home or self-care (01) ==
LOC: EDUNIT# 01:10 → ER FS 01:13
DX: T78.2XXA Anaphylactic shock, unspecified, initial encounter (principal); L50.9 Urticaria, unspecified; Z28.310 Unvaccinated for COVID-19

== ENCOUNTER 2022-09-30 03:48 | Emergency (ER) | payer BC ==
[~2022-09-30 03:48] MED LIST changes: +EPIN0.3P18 IM
[2022-09-30] MEDS ORDERED: EPINEPHrine INJECTION 1 MG/ML AMP ONE (03:58)
[2022-09-30] MEDS ORDERED: EPINEPHrine INJECTION 1 MG/ML AMP IM ONE (04:00)
[2022-09-30 04:01] VITALS: BP 153/66
--- NOTE | 2022-09-30 04:05 | ED General ---
General Chief Complaint: Allergic Reaction Stated Complaint: ALLERGIC REACTION Source of Information: Patient Exam Limitations: No Limitations History of Present Illness Date Seen by Provider: Sep 30, 2022 Time Seen by Provider: 03:49 Initial Comments 46-year-old female presents to the emergency department today for allergic reaction which she thinks is related to [place]. She was seen here this morning the off going provider actually warned me that she may return. She had anaphylactic type reaction with raspy voice swollen lips tachycardia and vomiting. She was given 3 dose of epinephrine this morning and watched all night and ultimately discharged home. She states around 11 PM she started to have symptoms once again. She took IM epi x2 prior to arrival. Currently complaining of raspy voice, swollen lips and nausea. All other systems reviewed and negative except documented per HPI. Voice recognition software was used to help create this chart Allergies and Home Medications Allergies Coded Allergies: No Known Drug Allergies (Unverified , 03/27/10) Patient Home Medication List Home Medication List Reviewed: Yes Epinephrine (Epinephrine) 0.3 Mg/0.3 Ml Auto.injct, 0.3 MG IM q15 min PRN for anaphylaxis Prescribed by: DINA ENRIQUEZ on 09/29/22 0150 Estradiol (Estradiol Tablet) 2 Mg Tablet, 2 MG PO DAILY, (Reported) Entered as Reported by: RICKIE TRINIDAD on 11/21/20 1117 Fluticasone Propionate (Fluticasone Propionate) 16 Gm [place].susp, 2 SPRAYS NS DAILY, (Reported) Entered as Reported by: RICKIE TRINIDAD on 11/21/20 1117 Hydrocodone Bit/Acetaminophen (HYDROcodone/APAP 5 MG/325 MG TAB) 1 Tab Tab, 1 TAB PO Q8H PRN for PAIN-MODERATE (5-7) Prescribed by: NIKKI HOROWITZ on 11/28/20 0924 Oxybutynin Chloride (Oxybutynin Chloride ER) 5 Mg Tab.er.24, 5 MG PO DAILY, (Reported) Entered as Reported by: RICKIE TRINIDDA on 11/21/20 1117 Review of Systems Review of Systems Constitutional: no symptoms reported Past Rudtznu-Djrich-Qppabp Hx Patient Social History Tobacco Use?: No Use of E-Cig and/or Vaping dev: No Substance use?: No Alcohol Use?: No Seasonal Allergies Seasonal Allergies: Yes Past Medical History Surgeries: Yes (lithrotripsy) Section, Hysterectomy Respiratory: No Currently Using CPAP: No Currently Using BIPAP: No Cardiac: No Neurological: No 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 oz. kg; 34.65 BMI Method: General Appearance: No Apparent Distress, Other (Raspy voice) Eyes: Bilateral Eye Normal Inspection, Bilateral Eye PERRL, Bilateral Eye EOMI HEENT: PERRL/EOMI, TMs Normal, Pharynx Normal, Other (Lips are slightly swollen) Neck: Full Range of Motion, Normal Inspection, Non Tender, Supple Respiratory: Chest Non Tender, Lungs Clear, Normal Breath Sounds, No Accessory Muscle Use, No Respiratory Distress Cardiovascular: No Murmur, Normal Peripheral Pulses, Tachycardia Gastrointestinal: Normal Bowel Sounds, No Organomegaly, No Pulsatile Mass, Non Tender, Soft Extremity: Normal Capillary Refill Neurologic/Psychiatric: Alert, Oriented x3, No Motor/Sensory Deficits Skin: Rash (Hives) Progress/Results/Core Measures Suspected Sepsis SIRS Temperature: Pulse: Respiratory Rate: Blood Pressure / Mean: Results/Orders My Orders Orders - JEAN EPPERSON DO Epinephrine 1 Mg Injection (Adrenalin I (09/30/22 04:00) Vital Signs/I&O Capillary Refill : Departure Communication (Admissions) Given the recurrence of symptoms despite epinephrine I recommend the patient stay in the hospital for observation. She asks if she can transport herself POV to [place]. She does have a raspy voice and swollen lips despite epinephrine. I do not think is a good idea for her to transfer POV and recommended ambulance transport. She states "this is a huge expense." I did acknowledge understanding and advised that her pain implants, etc. She declines ambulance transport and states she is just going to go to [place] straight from here right now. She did let me give her epinephrine prior to leaving. She signed out AGAINST MEDICAL ADVICE. I did call the provider, Dr. DO, in [place] and let them know that she was coming in the circumstances surrounding it. Impression Primary Impression: Anaphylaxis Qualified Codes: T78.2XXA - Anaphylactic shock, unspecified, initial encounter Disposition: AGAINST MEDICAL ADVICE Condition: Against Medical Advice Departure-Patient Inst. Referrals: HALI EL APRN (PCP) Primary Care Physician [facility] (Family) Primary Care Physician JEAN EPPERSON DO Sep 30, 2022 04:05
[2022-10-01] MEDS ORDERED: FAMO20TA3 PO (10:38)
[2022-10-01] MEDS ORDERED: SEMA2.4P SQ (10:38)
[2022-10-01] MEDS ORDERED: MULT-1136 PO (10:38)
[2022-10-01] MEDS ORDERED: TRZ50T PO (10:38)
[2022-10-01] MEDS ORDERED: OMEP20CA18 PO (10:38)
[2022-10-01] MEDS ORDERED: ACET-2267 PO (10:38)
[2022-10-01] MEDS ORDERED: ESTR2TAB4 PO (10:38)
[2022-10-01] MEDS ORDERED: MIRA50TA PO (10:41)
[2022-10-01] MEDS ORDERED: CETI10TA17 PO (10:41)
[2022-10-01] MEDS ORDERED: EPIN0.3P18 IM (10:42)
== END 2022-09-30 04:05 | disposition left against medical advice (07) ==
LOC: EDUNIT# 03:48 → ER FS 03:49
DX: T78.2XXA Anaphylactic shock, unspecified, initial encounter (principal); Z28.310 Unvaccinated for COVID-19
CPT/HCPCS: 99281

== ENCOUNTER 2022-09-30 05:05 | Inpatient (IN) | payer BC ==
[~2022-09-30] VITALS: Ht 160 cm; Wt 95.7 kg
[2022-09-30] MEDS ORDERED: methylPREDNISolone 125 MG (Solu-MEDROL) VIAL IV STA (05:25)
[2022-09-30] MEDS ORDERED: diphenhydrAMINE 50 MG/ML INJ (BENADRYL) IV STA (05:25)
[2022-09-30] MEDS ORDERED: FAMOTIDINE 20MG/2ML IV (PEPCID) IV STA (05:25)
[2022-09-30] MEDS ORDERED: NS IV 1000 ML 1,000 ML IV SCH (05:30)
[2022-09-30] MEDS ORDERED: EPINEPHrine INJECTION 1 MG/ML AMP IM ONE (05:30)
--- NOTE | 2022-09-30 05:32 | ED General ---
General Chief Complaint: Allergic Reaction Stated Complaint: ALLERGIC RXN Source of Information: Patient, Old Records (SALVATORE DOA Roxanne DENNY) History of Present Illness Date Seen by Provider: Sep 30, 2022 Time Seen by Provider: 05:17 Initial Comments PT ARRIVES VIA POV FROM [facility]--PT REFUSED EMS TRANSPORT PT C/O HIVES ALL OVER, WITH SWELLING TO LIPS AND AROUND EYES, AND HOARSE VOICE, SLIGHT CHEST TIGHTNESS AND SLIGHT SHORTNESS OF BREATH THESE SYMPTOMS INITIALLY BEGAN YESTERDAY AND WENT TO [facility], AND HAD EPINEPHRINE, AND OTHER MEDICATIONS AND EVENTUALLY THE SYMPTOMS WENT AWAY AND SHE WAS SENT HOME THEY DID RETURN AROUND [id number] AM YESTERDAY AND SHE TOOK ZYRTEC, PEPCID AND BENADRYL. SHE WOKE UP AROUND MIDNIGHT AND HAD SOME MILD HIVES AND A SCRATCHY THROAT, SO TOOK BENADRYL AND FELL ASLEEP. SHE HAD TOTAL OF 3 DOSES OF BENADRYL AND 2 DOSES OF PEPCID YESTERDAY. SHE WOKE UP AGAIN SOMETIME BEFORE 0300 AND HAD CURRENT SYMPTOMS, SHE GAVE HERSELF SHOTS OF EPINEPHRINE AT 0310 AND 0330, WITH OUT IMPROVEMENT, SHE THEN WENT TO [facility]. SHE WAS ADVISED THAT SHE WOULD NEED TO BE ADMITTED HERE, HER SYMPTOMS HAVE RETURNED --PT INSISTED ON COMING HERE BY POV, AND REFUSED EMS TRANSPORT--DAUGHTER DROVE HER HERE. SHE DID RECEIVE A SHOT OF EPINEPHRINE AT [facility] PRIOR TO HER DISMISSAL THERE. SHE HAS NOT HAD A HISTORY OF THIS PRIOR TO YESTERDAY SHE WAS STARTED ON MYRBETRIQ A MONTH AGO BY DR. JULIO, UROLOGIST IN [place], FOR URINARY INCONTINENCE. SHE TOOK 25 MG A DAY X 30 DAYS, AND DID NOT HAVE ANY PROBLEMS WITH THE MEDICATION THE DOSE WAS INCREASED TO 50 MG A DAY ON Thursday09/26/22. HER LAST DOSE WAS YESTERDAY MORNING 09/29/22, AND SYMPTOMS RETURNED SHORTLY AFTER SHE TOOK IT. SHE HAS NOT HAD ANY OTHER MEDICATION CHANGES. NO NEW FOODS, ETC. PCP: [facility]KISHAN MYERS, KAYLA EL. UROLOGIST: DR. JULIO [place] (TOSHA DO DO) Allergies and Home Medications Allergies Coded Allergies: No Known Drug Allergies (Unverified , 03/27/10) Patient Home Medication List Home Medication List Reviewed: Yes (DINA ENRIQUEZ MD) Acetaminophen (Tylenol Extra Strength) 500 Mg Tablet, 1,000 MG PO Q8H PRN for PAIN-MILD (1-4), (Reported) Entered as Reported by: AURELIA JENKINS on 10/01/22 1038 Last Action: Reviewed Cetirizine HCl (Cetirizine HCl) 10 Mg Tablet, 10 MG PO DAILY, (Reported) Entered as Reported by: AURELIA JENKINS on 10/01/22 1041 Last Action: Reviewed Epinephrine (Epinephrine) 0.3 Mg/0.3 Ml Auto.injct, 0.3 MG IM UD PRN for SEVERE ALLERGIC REACTION, (Reported) Entered as Reported by: AURELIA JENKINS on 10/01/22 1042 Last Action: Reviewed Estradiol (Estrace Tablet) 2 Mg Tablet, 2 MG PO DAILY, (Reported) Entered as Reported by: AURELIA JENKINS on 10/01/221037 Last Action: Reviewed Famotidine (Acid Literacy Consultant (FAMOTIDINE)) 20 Mg Tablet, 20 MG PO BID PRN for HEARTBURN, (Reported) Entered as Reported by: AURELIA JENKINS on 10/01/22 1038 Last Action: Reviewed Mirabegron (Myrbetriq) 50 Mg Tab.er.24h, 50 MG PO DAILY, (Reported) Entered as Reported by: AURELIA JENKINS on 10/01/22 104 Last Action: Reviewed Multivitamin (Multivitamin) 1 Each Tablet, 1 EACH PO DAILY, (Reported) Entered as Reported by: AURELIA JENKINS on 10/01/22 1038 Last Action: Reviewed Omeprazole (Omeprazole) 20 Mg Capsule.dr, 20 MG PO HS, (Reported) Entered as Reported by: AURELIA JENKINS on 10/01/22 1038 Last Action: Reviewed Semaglutide (Wegovy) 2.4 Mg/0.75 Ml Pen.injctr, 2.4 MG SQ SAT, (Reported) Entered as Reported by: AURELIA JENKINS on 10/01/22 1038 Last Action: Reviewed Trazodone HCl (Trazodone HCl) 50 Mg Tablet, 50 MG PO HS PRN for SLEEP, (Reported) Entered as Reported by: AURELIA JENKINS on 10/01/22 1038 Last Action: Reviewed Discontinued Medications Epinephrine (Epinephrine) 0.3 Mg/0.3 Ml Auto.injct, 0.3 MG IM q15 min PRN for anaphylaxis Discontinued Reason: Duplicate Order Prescribed by: DINA ENRIQUEZ on 09/29/22 0150 Last Action: Discontinued Estradiol (Estradiol Tablet) 2 Mg Tablet, 2 MG PO DAILY, (Reported) Discontinued Reason: Duplicate Order Entered as Reported by: RICKIE TRINIDAD on 11/21/201116 Last Action: Discontinued Fluticasone Propionate (Fluticasone Propionate) 16 Gm [place].susp, 2 SPRAYS NS DAILY, (Reported) Discontinued Reason: Duplicate Order Entered as Reported by: RICKIE TRINIDAD on 11/21/201116 Last Action: Discontinued Hydrocodone Bit/Acetaminophen (HYDROcodone/APAP 5 MG/325 MG TAB) 1 Tab Tab, 1 TAB PO Q8H PRN for PAIN-MODERATE (5-7) Discontinued Reason: Duplicate Order Prescribed by: NIKKI HOROWITZ on 11/28/20 0924 Last Action: Discontinued Oxybutynin Chloride (Oxybutynin Chloride ER) 5 Mg Tab.er.24, 5 MG PO DAILY, (Reported) Discontinued Reason: Duplicate Order Entered as Reported by: RICKIE TRINIDAD on 11/21/201116 Last Action: Discontinued Review of Systems Review of Systems Constitutional: no symptoms reported; No dizziness EENTM: see HPI Respiratory: see HPI Cardiovascular: see HPI Gastrointestinal: no symptoms reported; No nausea, No vomiting Genitourinary: see HPI Musculoskeletal: no symptoms reported Skin: see HPI, pruritus, rash Psychiatric/Neurological: No Symptoms Reported Hematologic/Lymphatic: No Symptoms Reported Immunological/Allergic: no symptoms reported (TOSHA DO DO) Past Smlevfo-Wdbqod-Azkyff Hx Patient Social History Tobacco Use?: No Substance use?: No Alcohol Use?: No (TOSHA DO DO) Seasonal Allergies Seasonal Allergies: Yes (TOSHA DO DO) Past Medical History Surgeries: Yes (lithrotripsy) Section, Hysterectomy, Oophorectomy, Renal Respiratory: No Currently Using CPAP: No Currently Using BIPAP: No Cardiac: No Neurological: No Reproductive Disorders: No SIGNAL PERSON History: Hysterectomy Sexually Transmitted Disease: No Genitourinary: Yes (OVERACTIVE BLADDER, INCONTINENCE) Kidney Stones, UTI-Chronic Gastrointestinal: Yes Gall Bladder Disease Musculoskeletal: No Endocrine: No HEENT: No (GLASSES) Cancer: No Psychosocial: No Integumentary: No Blood Disorders: No (TOSHA DO DO) Family Medical History No Pertinent Family Hx PAST SURGICAL HISTORY: -CHOLECYSTECTOMY - -HYSTERECTOMY WITH BILATERAL SALPINGO-OOPHORECTOMY--2 SURGERIES -D&C X3 FOR MISCARRIAGES -LITHOTRIPSY (TOSHA DO DO) Physical Exam Vital Signs Vital Signs - First Documented 09/30/22 05:13 Temp 36.2 Pulse 110 Resp 20 B/P (MAP) 146/101 (116) Pulse Ox 98 O2 Delivery Room Air (DINA ENRIQUEZ MD) Vital Signs Capillary Refill : (TOSHA DO DO) Height, Weight, BMI Height: '" Weight: lbs. oz. kg; 34.65 BMI Method: General Appearance: No Apparent Distress, WD/WN HEENT: PERRL/EOMI, Pharynx Normal, Moist Mucous Membranes, Other (PT HAS MILD SWELLING TO PERIORBITAL AREA AND BRIDGE OF NOSE. SHE ALSO HAS MILD SWELLING TO BOTH UPPER AND LOWER LIPS. NO INTRA-ORAL SWELLING. VOICE IS SLIGHTLY HOARSE. ) Neck: Full Range of Motion, Normal Inspection, Non Tender, Supple Respiratory: Normal Breath Sounds, No Accessory Muscle Use, No Respiratory Distress Cardiovascular: Regular Rate, Rhythm, No Edema, No JVD, No Murmur Gastrointestinal: Non Tender, Soft Extremity: Normal Capillary Refill, No Pedal Edema Neurologic/Psychiatric: Alert, Oriented x3, No Motor/Sensory Deficits, Normal Mood/Affect, nut sheller II-XII Norm as Tested Skin: Normal Color, Warm/Dry, Rash (PT WITH DIFFUSE HIVES FROM SCALP TO KNEES, INCLUDING FACE. HER PALMS ARE SPARED, WELL HER LOWER LEGS AND FEET. THERE IS NO OBVIOUS SWELLING TO HANDS OR FEET. ) (TOSHA DO DO) Progress/Results/Core Measures Suspected Sepsis SIRS Temperature: Pulse: Respiratory Rate: Blood Pressure / Mean: (TOSHA DO DO) Results/Orders Lab Results Laboratory Tests Test 09/30/22 05:20 Range/Units White Blood Count 11.8 H 4.3-11.0 10^3/uL Red Blood Count 4.99 3.80-5.11 10^6/uL Hemoglobin 14.3 11.5-16.0 g/dL Hematocrit 44 35-52 % Mean Corpuscular Volume 89 80-99 fL Mean Corpuscular Hemoglobin 29 25-34 pg Mean Corpuscular Hemoglobin Concent 32 32-36 g/dL Red Cell Distribution Width 12.8 10.0-14.5 % Platelet Count 323 130-400 10^3/uL Mean Platelet Volume 9.4 9.0-12.2 fL Immature Granulocyte % (Auto) 0 % Neutrophils (%) (Auto) 86 H 42-75 % Lymphocytes (%) (Auto) 11 L 12-44 % Monocytes (%) (Auto) 2 0-12 % Eosinophils (%) (Auto) 0 0-10 % Basophils (%) (Auto) 0 0-10 % Neutrophils # (Auto) 10.2 H 1.8-7.8 10^3/uL Lymphocytes # (Auto) 1.3 1.0-4.0 10^3/uL Monocytes # (Auto) 0.2 0.0-1.0 10^3/uL Eosinophils # (Auto) 0.0 0.0-0.3 10^3/uL Basophils # (Auto) 0.0 0.0-0.1 10^3/uL Immature Granulocyte # (Auto) 0.0 0.0-0.1 10^3/uL Neutrophils % (Manual) 74 % Lymphocytes % (Manual) 14 % Monocytes % (Manual) 3 % Band Neutrophils 9 % Blood Morphology Comment NORMAL Erythrocyte Sedimentation Rate 15 0-20 MM/HR Sodium Level 143 135-145 MMOL/L Potassium Level 3.0 L 3.6-5.0 MMOL/L Chloride Level 108 H 98-107 MMOL/L Carbon Dioxide Level 20 L 21-32 MMOL/L Anion Gap 15 H 5-14 MMOL/L Blood Urea Nitrogen 19 H 7-18 MG/DL Creatinine 0.95 0.60-1.30 MG/DL Estimat Glomerular Filtration Rate 74 BUN/Creatinine Ratio 20 Glucose Level 187 H 70-105 MG/DL Calcium Level 9.3 8.5-10.1 MG/DL Corrected Calcium 9.1 8.5-10.1 MG/DL Total Bilirubin 0.3 0.1-1.0 MG/DL Aspartate Amino Transf (AST/SGOT) 11 5-34 U/L Alanine Aminotransferase (ALT/SGPT) 14 0-55 U/L Alkaline Phosphatase 79 40-136 U/L C-Reactive Protein High Sensitivity 6.20 H 0.00-0.50 MG/DL Total Protein 7.5 6.4-8.2 GM/DL Albumin 4.3 3.2-4.5 GM/DL (DINA ENRIQUEZ MD) My Orders Orders - DINA ENRIQUEZ MD Ns (Ivpb) (Sodium C... W/Epinephrine 1 (09/30/22 06:24) Albuterol Pre-Mix Nebs (Rt) (Proventil (09/30/22 09:15) Svn Small Volume Nebulizer (09/30/22 09:15) Albuterol Pre-Mix Nebs (Rt) (Proventil (09/30/22 09:16) Ketorolac Injection (Toradol Injection) (09/30/22 09:45) Acetaminophen Tablet (Tylenol Tablet) (09/30/22 09:45) (DINA ENRIQUEZ MD) Medications Given in ED Current Medications Medications Dose Ordered Sig/Angus Route Start Time Stop Time Status Last Admin Dose Admin Acetaminophen 1,000 mg ONCE ONCE PO 09/30/22 09:45 09/30/22 09:46 DC 09/30/22 09:44 1,000 MG Epinephrine HCl 0.5 mg ONCE ONCE IM 09/30/22 05:30 09/30/22 05:31 DC 09/30/22 05:39 0.5 MG Ketorolac Tromethamine 15 mg ONCE ONCE IVP 09/30/22 09:45 09/30/22 09:46 DC 09/30/22 09:43 15 MG (DINA ENRIQUEZ MD) Vital Signs/I&O 09/30/22 09/30/22 09/30/22 09/30/22 05:13 05:39 07:02 09:18 Temp 36.2 Pulse 110 105 94 Resp 20 B/P (MAP) 146/101 (116) 122/81 117/79 Pulse Ox 98 97 O2 Delivery Room Air Room Air (DINA ENRIQUEZ MD) Vital Signs/I&O Capillary Refill : (TOSHA DO DO) Progress Note : Progress Note GIVEN: -IV FLUIDS -EPINEPHRINE IM -BENADRYL -SOLU-MEDROL -PEPCID 0600--CARE TURNED OVER TO DR. ENRIQUEZ AT SHIFT CHANGE. (TOSHA DO DO) Progress Note : Progress Note Followed up with the patient, he continued to have symptoms despite the IM epinephrine. At this point she has had essentially 3 or 4 IM shots today of epinephrine. We will start her on an epi drip between 2 to 10 mcg/min. On reevaluation, objectively the swelling of her face is slightly better. She still feeling some tightness in her chest and difficulty swallowing. Oxygen is 100% on room air, lungs are clear, not in respiratory distress. I believe she is protecting her airway. I called and discussed the case with Dr. Cavanaugh, who admit the patient to the intensive care unit. I then contacted the ICU physician for signout. The patient will be boarded in the ER, as there is not an ICU bed as of yet. I will continue to monitor her and evaluate her frequently. Patient still having symptoms, but on my repeat evaluation her face seems less swollen. Going through her meds, she took Myrbetriq ER yesterday mid morning. I suspect this could be the culprit, and that is why we may still be having symptoms despite the epi drip going if she is still absorbing the offending agent. (DINA ENRIQUEZ MD) Departure Impression Primary Impression: Anaphylaxis Qualified Codes: T78.2XXA - Anaphylactic shock, unspecified, initial encounter Disposition: ADMITTED INPATIENT Condition: Stable Admissions Decision to Admit Reason: Admit from ER (General) Decision to Admit/Date: Sep 30, 2022 Time/Decision to Admit Time: 07:30 (DINA ENRIQUEZ MD) Departure-Patient Inst. Referrals: HALI EL APRN (PCP) Primary Care Physician [facility] (Family) Primary Care Physician TOSHA DO DO Sep 30, 2022 05:32 DINA ENRIQUEZ MD Sep 30, 2022 08:39
[2022-09-30 05:36] LABS: BASOPHILS % (AUTO) 0 % (0-10); EOSINOPHILS % (AUTO) 0 % (0-10); HEMATOCRIT 44 % (35-52); HEMOGLOBIN 14.3 g/dL (11.5-16.0); LYMPHOCYTES # (AUTO) 1.3 10^3/uL (1.0-4.0); LYMPHOCYTES % (AUTO) 11 % (12-44); MEAN CORPUSCULAR HEMOGLOBIN 29 pg (25-34); MEAN CORPUSCULAR HGB CONC 32 g/dL (32-36); MEAN CORPUSCULAR VOLUME 89 fL (80-99); MEAN PLATELET VOLUME 9.4 fL (9.0-12.2); MONOCYTES # (AUTO) 0.2 10^3/uL (0.0-1.0); MONOCYTES % (AUTO) 2 % (0-12); NEUTROPHILS # (AUTO) 10.2 10^3/uL (1.8-7.8); NEUTROPHILS % (AUTO) 86 % (42-75); PLATELET COUNT 323 10^3/uL (130-400); WHITE BLOOD COUNT 11.8 10^3/uL (4.3-11.0)
[2022-09-30 05:43] LABS: ALBUMIN 4.3 GM/DL (3.2-4.5)
[2022-09-30 05:44] LABS: CALCIUM 9.3 MG/DL (8.5-10.1)
[2022-09-30 05:45] LABS: TOTAL PROTEIN 7.5 GM/DL (6.4-8.2)
[2022-09-30 05:47] LABS: BILIRUBIN,TOTAL 0.3 MG/DL (0.1-1.0)
[2022-09-30 05:49] LABS: CREATININE SERUM 0.95 MG/DL (0.60-1.30)
[2022-09-30 06:15] LABS: BAND NEUTROPHILS 9 %; LYMPHOCYTES % (MANUAL) 14 %; MONOCYTES % (MANUAL) 3 %; NEUTROPHILS % (MANUAL) 74 %; RBC MORPH NORMAL
[2022-09-30 06:23] LABS: ERYTHROCYTE SEDIMENTATION RATE 15 MM/HR (0-20)
[2022-09-30] MEDS ORDERED: EPINEPHrine 1 MG INJECTION 4 MG in NS (IVPB) 246 ML IV STA (06:24)
[2022-09-30] MEDS ORDERED: RT-ALBUTEROL SULF 2.5 MG/3 ML PRE-MIX VIAL INH STA (09:15)
[2022-09-30] MEDS ORDERED: RT-ALBUTEROL SULF 2.5 MG/3 ML PRE-MIX VIAL ONE (09:16)
[2022-09-30] MEDS ORDERED: KETOROLAC 30 MG/ML VIAL IVP ONE (09:45)
[2022-09-30] MEDS ORDERED: ACETAMINOPHEN 500 MG TAB (TYLENOL) PO ONE (09:45)
--- NOTE | 2022-09-30 10:34 | Tele-ICU Consult ---
IDALIA COLLINS 09/30/22 1034: History of Present Illness History of Present Illness Date Seen by Provider: Sep 30, 2022 Time Seen by Provider: 10:00 Date of Admission 09/30/22 History of Present Illness Ms. Urbina is a 46 year old female with a PMHx of seasonal allergies, kidney stones, and urinary incontinence secondary to neurogenic bladder. The patient presents today with allergic reaction vs. anaphylaxis of unclear etiology. The patient reports onset of symptoms on Thursday 09/28 in the morning. Pt reports the symptoms began with a sore, scratchy throat. Pt reports the throat pain worsened and she began to notice "welts"/hives on her torso, arms, back, and thighs. Pt a lso began experiencing swelling of her lips and periorbital area and chest tightness. Pt [place] outside of [place], [place]. Pt presented to the [facility] ED very early Thursday, 09/29, morning and received IM epinephrine, steroids, PPI, benadryl, and Zrytec. The patient's symptoms improved and was stable to discharge home. Pt reports she went home and took her home medications as she usually does. Pt's home medication list includes myrbetric 50mg qd, Wegovy 2.4 weekly, trazodone PRN for sleep, famotidine, omeprazole, zyrtec, and estradiol for HRT s/p complete hysterectomy. The pt reports she recently d/c oxybutynin one month ago and started mybetric 25mg, per Dr. Paul in [place]. On Tuesday 09/26 the pt's dose of mybetric was increased from 25mg to 50mg qd. The pt reports she too k the first dose of 50mg on Wednesday 09/27. Later in the morning on Thursday, 09/29, after taking her home medications, the patient began experiencing similar symptoms again. The pt states she tried IM epinephrine, albuterol IH, omeprazole, benadryl, and zytrec as instructed without any symptom relief. The pt returned to the [facility] ED and was recommended to be transferred to [facility] for management. The pt declined EMS transport, and the pt's daughter drove her to [facility]. Epinephrine drip has been initiated. Tele-ICU has been consulted for further management and observation. The patient denies any known medication allergies. Pt denies any food allergies. Pt denies recently trying new foods or taking other new or un-prescribed medications. The pt endorses mild seasonal allergies. The pt denies recent yard work or any outdoor activity out of her normal routine. Allergies and Home Medications Allergies Coded Allergies: No Known Drug Allergies (Unverified , 03/27/10) Home Medications Epinephrine 0.3 Mg/0.3 Ml Auto.injct, 0.3 MG IM q15 min PRN for anaphylaxis Prescribed by: DINA ENRIQUEZ on 09/29/22 0150 Estradiol 2 Mg Tablet, 2 MG PO DAILY, (Reported) Fluticasone Propionate 16 Gm [place].susp, 2 SPRAYS NS DAILY, (Reported) Hydrocodone Bit/Acetaminophen 1 Tab Tab, 1 TAB PO Q8H PRN for PAIN-MODERATE (5- 7) Prescribed by: NIKKI HOROWITZ on 11/28/20 0924 Oxybutynin Chloride 5 Mg Tab.er.24, 5 MG PO DAILY, (Reported) Past Medical/Social/Family Hx Patient Social History Marrital Status: Tobacco Use?: No Use of E-Cig and/or Vaping dev: No Substance use?: No Alcohol Use?: No Immunizations Up To Date Influenza Vaccine Up-to-Date: Yes; Up-to-Date First/Initial COVID19 Vaccinat: JUL 2020 Second COVID19 Vaccination [place]: AUG 2020 Tetanus Booster (TDap): Unknown Current Status status: No Advance Directives: No Communicates: Verbally Primary Language: Argentine Preferred Spoken Language: Argentine Is interpretation needed?: No Past Medical History seasonal allergies, kidney stones, urinary incontinence secondary to neurogenic bladder Family Medical History Family Hx: PAST SURGICAL HISTORY: -CHOLECYSTECTOMY - -HYSTERECTOMY WITH BILATERAL SALPINGO-OOPHORECTOMY--2 SURGERIES -D&C X3 FOR MISCARRIAGES -LITHOTRIPSY Review of Systems Constitutional: malaise EENTM: hoarseness, throat pain; No blurred vision, No double vision, No eye pain, No vision loss, No mouth swelling, No throat swelling Respiratory: dyspnea on exertion, short of breath Cardiovascular: chest pain (chest tightness), palpitations Gastrointestinal: no symptoms reported; No abdominal pain, No constipation, No diarrhea, No nausea, No vomiting Genitourinary: no symptoms reported : No Musculoskeletal: no symptoms reported Skin: pruritus, other (hives on neck, torso, back, bilateral UE, groin, and bilateral thighs) Psychiatric/Neurological: Headache, Tingling (bilateral legs) Focused Exam Height, Weight, BMI Height: '" Weight: lbs. oz. kg; 35.00 BMI Method: Exam Exam Patient acknowledged, consented, and participated in this virtual visit which was conducted using real time audio/video Vital Signs Date Time Temp Pulse Resp B/P (MAP) Pulse Ox O2 Delivery O2 Flow Rate FiO2 09/30/22 09:18 97 Room Air 09/30/22 07:02 94 117/79 09/30/22 05:39 105 122/81 09/30/22 05:13 36.2 110 20 146/101 (116) 98 Room Air Height & Weight Height: '" Weight: lbs. oz. kg; 35.00 BMI Method: General Appearance: No Apparent Distress, WD/WN HEENT: PERRL/EOMI, Other (dry oral mucosa) Neck: Other (painful hives with urticaria on posterior side of neck) Respiratory: Normal Breath Sounds, No Accessory Muscle Use, No Respiratory Distress Cardiovascular: Regular Rate, Rhythm, No Edema, No Murmur, Normal Peripheral Pulses (R radial pulse +2) Capillary Refill: Less Than 3 Seconds Peripheral Pulses: 2+ Radial Pulses (R) Gastrointestinal: normal bowel sounds, non tender, soft Extremity: Normal Capillary Refill, No Pedal Edema Neurologic/Psychiatric: Alert, Oriented x3 Skin: Rash (hives involving the neck, the torso, back, bilateral UE, bilateral thighs) Results Lab Laboratory Tests 09/30/22 05:20 Assessment/Plan Assessment/Plan 1. Anaphylaxis, suspected biphasic reaction, unknown etiology. -Epinephrine drip 250mls @ 33.675 mls/hr; titrate as tolerated -Discontinue mybetriq as possible cause of reaction -IV fluids, NS 1000mls @ 150mls/hr -Continue anti-histamines for urticaria; IV famotidine 20mg, IV benadryl 25mg -> switch to PO tomorrow, 10/01 -Solu-medrol 80mg IVP Q6HR -> transition to PO steroids on 10/01 -Tylenol + anti-histamines for head ache relief -Close monitoring to assess airway stability; patient is stable at this time -Recommended follow-up with Allergy/Immunology -> assessing C1 esterase inhibitor, C4, CRP, and IgE serum levels 2. Hypokalemia of 3.0 -Replace with KCl 40meq PO, if PO medication is tolerated 3. Metabolic acidosis with anion gap of 15, Cl 108, CO2 20 -Monitor the patient's disposition -Afternoon BMP -PO hydration as tolerated 4. Leukocytosis 11.8, with left shift of 10.2 -Likely leukemoid reaction as stress response or from steroid use, AM CBC for monitoring -Monitor for fever or worsening symptoms -No source of infection detected at this time LEAH RAMIREZ MD 10/01/22 0859: Allergies and Home Medications Allergies Coded Allergies: No Known Drug Allergies (Unverified , 03/27/10) Home Medications Epinephrine 0.3 Mg/0.3 Ml Auto.injct, 0.3 MG IM q15 min PRN for anaphylaxis Prescribed by: DINA ENRIQUEZ on 09/29/22 0150 Estradiol 2 Mg Tablet, 2 MG PO DAILY, (Reported) Fluticasone Propionate 16 Gm [place].susp, 2 SPRAYS NS DAILY, (Reported) Hydrocodone Bit/Acetaminophen 1 Tab Tab, 1 TAB PO Q8H PRN for PAIN-MODERATE (5- 7) Prescribed by: NIKKI HOROWITZ on 11/28/20 0924 Oxybutynin Chloride 5 Mg Tab.er.24, 5 MG PO DAILY, (Reported) Assessment/Plan Assessment/Plan Service provided via interactive audio and video telecommunications E-CARE system to a patient admitted to ICU bed in [facility]. A medical student performed and documented this service in my presence. I reviewed and verified all information documented by the medical student and made modifications to such information, when appropriate. I personally discussed with Rn annika medical student all medical decision making. Plans in collaboration with bedside consultants and IM MDs. Case and care daily discussed on multidisciplinary rounds ( RN, PharmD, [employer] , Respiratory Therapy, anode worker ) IDALIA COLLINS Sep 30, 2022 10:34 LEAH RAMIREZ MD Oct 01, 2022 08:59
[2022-09-30 12:10] VITALS: BP 146/68
[2022-09-30] MEDS: methylPREDNISolone 40 MG/ML (Solu-MEDROL) VIAL IV SCH ×3 (12:20→23:03)
[2022-09-30] MEDS: diphenhydrAMINE 50 MG/ML INJ (BENADRYL) IVP SCH ×3 (12:21→23:04)
[2022-09-30] MEDS: D5 LR IV SOLUTION 1,000 ML IV SCH ×2 (12:21→20:23)
[2022-09-30] MEDS: EPINEPHrine 1 MG INJECTION 4 MG in NS (IVPB) 246 ML IV SCH ×3 (12:26→20:25)
[2022-09-30] MEDS ORDERED: NS IV 500 ML 500 ML IV PRN (13:15)
[2022-09-30] MEDS ORDERED: KCL 20 MEQ TAB (K-DUR) PO NR (14:30)
--- NOTE | 2022-09-30 19:55 | History & Physical ---
HPI History of Present Illness: 46 yo F that presented to ER with worsening shortness of breath, scratchy throat and hives all over her body. She was seen earlier this weekend for similar symptoms which resolved in the ER. She was told it was possible for it to be alpha-gal and was told not to eat any meat. She states recently she was increased on Mybetriq from 25 mg to 50 mg and that has been the only med change in the last few weeks. She has taken 3 doses of the higher dose. She did take her dose yesterday because the ER provider did not feel like it was a medication reaction. States that shortly after taking her medication the symptoms came back and she had increase in hives down her legs and back. She is currently in the ICU. Hives are still present and she is having itching but it is getting better. She is very jittery likely due to the IV steroids and epi drip. States that she still feels like there is something in her throat but that it is improving. Denies any shortness of breath at rest but states that when she got up to go to the [facility] she was short of breath. Source: patient, spouse Exam Limitations: no limitations Date seen by provider: Sep 30, 2022 Time Seen by Provider: 17:15 Attending Physician Didi Villaseñor Aprn PCP Admitting Physician: Ann Cavanaugh MD Attending Physician: Ann Cavanaugh MD Consult Date of Admission Sep 30, 2022 at 11:23 Home Medications Home Medications Reviewed patient Home Medication Reconciliation performed by pharmacy medication reconciliations design technician and/or nursing. Patients Allergies have been reviewed. Allergies Coded Allergies: No Known Drug Allergies (Unverified , 03/27/10) CPZ-Hmayji-Ietlpl Hx Patient Social History Marrital Status: Living Status: Lives at home with spouse, independent with ADLs Smoking Status: Never a Smoker 2nd Hand Smoke Exposure: No Recent Hopitalizations: No Alcohol Use?: No Have you traveled recently?: No Immunizations Up To Date Influenza Vaccine Up-to-Date: Yes; Up-to-Date First/Initial COVID19 Vaccinat: JUL 2020 Second COVID19 Vaccination [place]: AUG 2020 Third COVID19 Vaccination Date: NONE COVID19 Vaccine Stock Digger: MODERNA X2 Past Medical History seasonal allergies, kidney stones, urinary incontinence secondary to neurogenic bladder HRT s/p complete hysterectomy Family Medical History Significant Family History: No Pertinent Family Hx Other Significan Family Hx: PAST SURGICAL HISTORY: -CHOLECYSTECTOMY - -HYSTERECTOMY WITH BILATERAL SALPINGO-OOPHORECTOMY--2 SURGERIES -D&C X3 FOR MISCARRIAGES -LITHOTRIPSY Review of Systems (CHC) Constitutional: No chills; malaise, weakness EENTM: hoarseness, throat pain, throat swelling Respiratory: No cough; dyspnea on exertion; No short of breath Cardiovascular: no symptoms reported; No chest pain, No edema, No palpitations Gastrointestinal: no symptoms reported; No abdominal pain, No constipation, No diarrhea, No nausea, No vomiting Genitourinary: No dysuria, No hematuria; incontinence (urge) Musculoskeletal: no symptoms reported Skin: pruritus, other (hives) Psychiatric/Neurological: Anxiety, Headache Reviewed Test Results Reviewed Test Results Lab Laboratory Tests Test 09/30/22 05:20 Range/Units White Blood Count 11.8 H 4.3-11.0 10^3/uL Red Blood Count 4.99 3.80-5.11 10^6/uL Hemoglobin 14.3 11.5-16.0 g/dL Hematocrit 44 35-52 % Mean Corpuscular Volume 89 80-99 fL Mean Corpuscular Hemoglobin 29 25-34 pg Mean Corpuscular Hemoglobin Concent 32 32-36 g/dL Red Cell Distribution Width 12.8 10.0-14.5 % Platelet Count 323 130-400 10^3/uL Mean Platelet Volume 9.4 9.0-12.2 fL Immature Granulocyte % (Auto) 0 % Neutrophils (%) (Auto) 86 H 42-75 % Lymphocytes (%) (Auto) 11 L 12-44 % Monocytes (%) (Auto) 2 0-12 % Eosinophils (%) (Auto) 0 0-10 % Basophils (%) (Auto) 0 0-10 % Neutrophils # (Auto) 10.2 H 1.8-7.8 10^3/uL Lymphocytes # (Auto) 1.3 1.0-4.0 10^3/uL Monocytes # (Auto) 0.2 0.0-1.0 10^3/uL Eosinophils # (Auto) 0.0 0.0-0.3 10^3/uL Basophils # (Auto) 0.0 0.0-0.1 10^3/uL Immature Granulocyte # (Auto) 0.0 0.0-0.1 10^3/uL Neutrophils % (Manual) 74 % Lymphocytes % (Manual) 14 % Monocytes % (Manual) 3 % Band Neutrophils 9 % Blood Morphology Comment NORMAL Erythrocyte Sedimentation Rate 15 0-20 MM/HR Sodium Level 143 135-145 MMOL/L Potassium Level 3.0 L 3.6-5.0 MMOL/L Chloride Level 108 H 98-107 MMOL/L Carbon Dioxide Level 20 L 21-32 MMOL/L Anion Gap 15 H 5-14 MMOL/L Blood Urea Nitrogen 19 H 7-18 MG/DL Creatinine 0.95 0.60-1.30 MG/DL Estimat Glomerular Filtration Rate 74 BUN/Creatinine Ratio 20 Glucose Level 187 H 70-105 MG/DL Calcium Level 9.3 8.5-10.1 MG/DL Corrected Calcium 9.1 8.5-10.1 MG/DL Total Bilirubin 0.3 0.1-1.0 MG/DL Aspartate Amino Transf (AST/SGOT) 11 5-34 U/L Alanine Aminotransferase (ALT/SGPT) 14 0-55 U/L Alkaline Phosphatase 79 40-136 U/L C-Reactive Protein High Sensitivity 6.20 H 0.00-0.50 MG/DL Total Protein 7.5 6.4-8.2 GM/DL Albumin 4.3 3.2-4.5 GM/DL Physical Exam-(CHC) Physical Exam Vital Signs VS - Last 72 Hours, by Label 09/30/22 09/30/22 09/30/22 09/30/22 05:13 05:39 07:02 09:18 Temp 36.2 Pulse 110 105 94 Resp 20 B/P (MAP) 146/101 (116) 122/81 117/79 Pulse Ox 98 97 O2 Delivery Room Air Room Air 09/30/22 09/30/22 09/30/22 09/30/22 11:30 11:35 11:35 11:45 Pulse 102 104 103 Resp 30 28 30 B/P (MAP) 139/78 (98) 146/68 139/61 (87) Pulse Ox 95 97 97 96 O2 Delivery Room Air Room Air Room Air Room Air 09/30/22 09/30/22 09/30/22 09/30/22 12:00 12:03 12:10 12:15 Temp 36.2 Pulse 105 104 105 Resp 25 34 B/P (MAP) 117/65 (82) 125/65 (85) Pulse Ox 95 97 96 O2 Delivery Room Air Room Air Room Air 09/30/22 09/30/22 09/30/22 09/30/22 12:17 12:18 12:30 12:45 Temp 36.3 Pulse 104 105 112 Resp 34 27 B/P (MAP) 122/52 (75) 126/66 (86) Pulse Ox 96 97 O2 Delivery Room Air Room Air 09/30/22 09/30/22 09/30/22 09/30/22 13:00 13:54 13:56 14:00 Pulse 99 102 102 104 Resp 27 17 B/P (MAP) 127/71 (89) 141/73 141/73 160/82 (108) Pulse Ox 98 98 O2 Delivery Room Air Room Air 09/30/22 09/30/22 09/30/22 09/30/22 15:00 15:31 16:00 16:32 Temp 36.5 Pulse 86 82 Resp 32 28 B/P (MAP) 138/74 (95) 135/72 (93) Pulse Ox 96 95 98 O2 Delivery Room Air Room Air Room Air 09/30/22 09/30/22 09/30/22 17:00 18:00 18:20 Pulse 92 93 Resp 20 27 B/P (MAP) 145/89 (107) 134/79 (97) Pulse Ox 97 97 97 O2 Delivery Room Air Room Air Room Air Capillary Refill : Less Than 3 Seconds General Appearance: WD/WN, no apparent distress HEENT: PERRL/EOMI, pharyngeal erythema Neck: non-tender, full range of motion, supple Respiratory: chest non-tender, lungs clear, normal breath sounds, no respiratory distress, no accessory muscle use Cardiovascular: normal peripheral pulses, regular rate, rhythm, no edema, no murmur Gastrointestinal: normal bowel sounds, non tender, soft Back: no CVA tenderness, no vertebral tenderness Extremities: normal range of motion, normal inspection, no pedal edema, no calf tenderness, normal capillary refill Neurologic/Psychiatric: manager er II-XII nml as tested, alert, oriented x 3 Skin: other (Hives on thighs and lower back) Assessment/Plan Assessment/Plan Admission Status: Observation (1) Anaphylaxis Status: Acute Assessment & Plan: - Admit to ICU for close monitoring, epi drip, H2 blockers and anti histamines and IV steroids, possible medication AE Qualifiers: Qualified Codes: T78.2XXA - Anaphylactic shock, unspecified, initial encounter (2) Medication adverse effect Status: Acute Qualifiers: Qualified Codes: T50.905A - Adverse effect of unspecified drugs, medicaments and biological substances, initial encounter (3) Urge incontinence Status: Chronic Assessment & Plan: - Stopping myrbetric as this is the only new med change (4) GERD (gastroesophageal reflux disease) Status: Chronic (5) Hypokalemia Status: Acute Assessment & Plan: - Replace and repeat level in AM ANN CAVANAUGH MD Sep 30, 2022 19:55
[2022-09-30] MEDS: FAMOTIDINE 20MG/2ML IV (PEPCID) IVP SCH (20:23)
[2022-10-01] MEDS: D5 LR IV SOLUTION 1,000 ML IV SCH (03:25)
[2022-10-01] MEDS: EPINEPHrine 1 MG INJECTION 4 MG in NS (IVPB) 246 ML IV SCH ×5 (03:26→23:33)
[2022-10-01 03:56] LABS: BASOPHILS % (AUTO) 0 % (0-10); EOSINOPHILS % (AUTO) 0 % (0-10); HEMATOCRIT 35 % (35-52); HEMOGLOBIN 11.3 g/dL (11.5-16.0); LYMPHOCYTES # (AUTO) 1.4 10^3/uL (1.0-4.0); LYMPHOCYTES % (AUTO) 7 % (12-44); MEAN CORPUSCULAR HEMOGLOBIN 29 pg (25-34); MEAN CORPUSCULAR HGB CONC 33 g/dL (32-36); MEAN CORPUSCULAR VOLUME 90 fL (80-99); MEAN PLATELET VOLUME 9.6 fL (9.0-12.2); MONOCYTES # (AUTO) 0.4 10^3/uL (0.0-1.0); MONOCYTES % (AUTO) 2 % (0-12); NEUTROPHILS # (AUTO) 17.5 10^3/uL (1.8-7.8); NEUTROPHILS % (AUTO) 90 % (42-75); PLATELET COUNT 358 10^3/uL (130-400); WHITE BLOOD COUNT 19.4 10^3/uL (4.3-11.0)
[2022-10-01 04:11] LABS: ALBUMIN 3.7 GM/DL (3.2-4.5); POTASSIUM 3.7 MMOL/L (3.6-5.0)
[2022-10-01 04:12] LABS: CALCIUM 8.9 MG/DL (8.5-10.1)
[2022-10-01 04:13] LABS: TOTAL PROTEIN 6.1 GM/DL (6.4-8.2)
[2022-10-01 04:15] LABS: BILIRUBIN,TOTAL 0.3 MG/DL (0.1-1.0)
[2022-10-01 04:16] LABS: PHOSPHORUS 1.3 MG/DL (2.3-4.7)
[2022-10-01 04:17] LABS: CREATININE SERUM 0.89 MG/DL (0.60-1.30)
[2022-10-01 04:20] LABS: MAGNESIUM 1.7 MG/DL (1.6-2.4)
[2022-10-01] MEDS: POTASSIUM CL 10MEQ/50ML IVPB 50 ML IV SCH (04:36)
[2022-10-01] MEDS: MAGNESIUM 1 GM/100 ML IVPB 100 ML IV SCH ×5 (04:40→08:21)
[2022-10-01] MEDS: inSUlin ASPART (NovoLOG) 1 UNIT/0.01 ML (CHARGE PER UNIT) SC SCH ×4 (05:32→21:22)
[2022-10-01] MEDS: KCL 20 MEQ TAB (K-DUR) PO SCH (05:32)
[2022-10-01] MEDS: methylPREDNISolone 40 MG/ML (Solu-MEDROL) VIAL IV SCH ×4 (05:33→23:33)
[2022-10-01] MEDS: diphenhydrAMINE 50 MG/ML INJ (BENADRYL) IVP SCH ×4 (05:33→22:44)
[2022-10-01] MEDS: FAMOTIDINE 20MG/2ML IV (PEPCID) IVP SCH ×2 (08:20→21:19)
--- NOTE | 2022-10-01 10:02 | Tele-ICU Progress Note ---
IDALIA COLLINS 10/01/22 1002: Subjective Date Seen by a Provider: Oct 01, 2022 Time Seen by a Provider: 08:00 Subjective/Events-last exam Ms. Urbina is a 46 year old female with a PMHx of seasonal allergies, kidney stones, and urinary incontinence secondary to neurogenic bladder. The patient presented with anaphylaxis of unclear etiology to [facility] on 09/30. The patient reports over night she began experiencing worsening scratchy/sore throat and urticaria associated with her hives. Pt reports the hives on her back are the most bothersome today. Over night, the patient's epinephrine drip was titrated down to 0.1. Shortly after titration, the pt began experiencing the worsening of symptoms as just described. The pt was titrated up to 0.13 with no symptom improvement. The patient is currently at 0.16 and states her symptoms have not worsened. The pt expresses that she would like to go home today. Discussed with the pt that the plan is to safely titrate her epinephrine down and transition to PO medications this evening or tomorrow, depending on how her day goes. Pt is agreeable to plan at this time. Pt reports improvement of angioedema of her lips and periorbital area. Pt denies SOA, tongue swelling, difficulty breathing, or abdominal cramping. Review of Systems General: Malaise HEENT: No Visual Changes; Sore Throat Pulmonary: No Dyspnea, No Cough, No Pleuritic Chest Pain Cardiovascular: No: Chest Pain Gastrointestinal: No: Nausea, Vomiting, Abdominal Pain, Diarrhea, Constipation Genitourinary: No Retention Neurological: No: Weakness, Numbness, Confusion Sepsis Event Evaluation Height, Weight, BMI Height: '" Weight: lbs. oz. kg; 37.14 BMI Method: Exam Exam Patient acknowledged, consented, and participated in this virtual visit which was conducted using real time audio/video Vital Signs Date Time Temp Pulse Resp B/P (MAP) Pulse Ox O2 Delivery O2 Flow Rate FiO2 10/01/22 09:01 90 150/79 10/01/22 08:21 87 146/74 10/01/22 08:05 37.0 10/01/22 08:00 98 24 153/80 (104) 90 Room Air 10/01/22 08:00 93 Room Air 10/01/22 07:33 93 10/01/22 07:23 74 111/63 10/01/22 07:00 83 30 147/87 (107) 90 Room Air 10/01/22 06:00 96 32 152/83 (106) 91 Room Air 10/01/22 05:00 86 26 146/77 (95) 89 Room Air 10/01/22 04:39 36.8 10/01/22 04:00 99 Room Air 10/01/22 04:00 87 29 152/71 (92) 88 Room Air 10/01/22 03:26 92 147/76 10/01/22 03:00 91 23 156/78 (97) 90 Room Air 10/01/22 02:00 102 130/66 (92) 92 Room Air 10/01/22 01:00 76 25 132/73 (96) 91 Room Air 10/01/22 01:00 76 10/01/22 00:00 36.5 10/01/22 00:00 80 25 141/74 (96) 92 Room Air 09/30/22 23:59 99 Room Air 09/30/22 23:00 85 27 134/68 (92) 94 Room Air 09/30/22 22:00 87 130/65 (86) 95 Room Air 09/30/22 21:45 114 30 126/65 (88) 94 09/30/22 21:30 98 27 124/70 (84) 94 09/30/22 21:15 90 29 124/61 (97) 95 09/30/22 21:00 83 29 130/65 (84) 94 Room Air 09/30/22 20:45 100 26 133/64 (81) 95 09/30/22 20:30 102 31 128/72 (95) 97 09/30/22 20:25 89 134/69 09/30/22 20:15 94 25 134/69 (97) 98 09/30/22 20:00 73 32 137/70 (90) 94 Room Air 09/30/22 20:00 99 Room Air 09/30/22 20:00 36.8 09/30/22 19:45 80 28 150/68 (100) 94 09/30/22 19:30 80 31 142/83 (98) 94 09/30/22 19:15 90 23 152/78 (96) 93 09/30/22 19:00 36.8 Room Air 09/30/22 19:00 101 09/30/22 19:00 101 37 148/82 (100) 95 Room Air 09/30/22 18:20 97 Room Air 09/30/22 18:00 93 27 134/79 (97) 97 Room Air 09/30/22 17:00 92 20 145/89 (107) 97 Room Air 09/30/22 16:32 98 Room Air 09/30/22 16:00 82 28 135/72 (93) 95 Room Air 09/30/22 15:31 36.5 09/30/22 15:00 86 32 138/74 (95) 96 Room Air 09/30/22 14:00 104 17 160/82 (108) 98 Room Air 09/30/22 13:56 102 141/73 09/30/22 13:54 102 141/73 09/30/22 13:00 99 27 127/71 (89) 98 Room Air 09/30/22 12:45 112 27 126/66 (86) 97 Room Air 09/30/22 12:30 105 34 122/52 (75) 96 Room Air 09/30/22 12:18 104 09/30/22 12:17 36.3 09/30/22 12:15 105 34 125/65 (85) 96 Room Air 09/30/22 12:10 36.2 104 97 09/30/22 12:03 Room Air 09/30/22 12:00 105 25 117/65 (82) 95 Room Air 09/30/22 11:45 103 30 139/61 (87) 96 Room Air 09/30/22 11:35 104 28 146/68 97 Room Air 09/30/22 11:35 97 Room Air 09/30/22 11:30 102 30 139/78 (98) 95 Room Air I & O 10/01/22 07:00 Intake Total 3250 ml Balance 3250 ml Height & Weight Height: '" Weight: lbs. oz. kg; 37.14 BMI Method: General Appearance: No Apparent Distress, WD/WN HEENT: PERRL/EOMI, Other (dry oral mucosa) Neck: Other (painful hives with urticaria on posterior side of neck) Respiratory: Normal Breath Sounds, No Accessory Muscle Use, No Respiratory Distress Cardiovascular: Regular Rate, Rhythm, No Edema, No Murmur, Normal Peripheral Pulses (R radial pulse +2) Capillary Refill: Less Than 3 Seconds Peripheral Pulses: 2+ Radial Pulses (R) Gastrointestinal: normal bowel sounds, non tender, soft Extremity: Normal Capillary Refill, No Pedal Edema Neurologic/Psychiatric: Alert, Oriented x3 Skin: Rash ((hives on neck, torso, back, bilateral UE, groin, and bilateral thighs) Results Lab Laboratory Tests 09/30/22 05:20 10/01/22 03:36 Assessment/Plan Assessment/Plan 1. Anaphylaxis, suspected biphasic vs refractory reaction, unknown etiology. -Epinephrine drip 250mls @ 33.675 mls/hr; titrate as tolerated. Currently at 0.16 -Discontinue mybetriq as possible cause of reaction -IV fluids D5/LR discontinued due to hyperglycemia -Continue anti-histamines for urticaria; IV famotidine 20mg, IV benadryl 25mg -> switch to PO this evening or tomorrow, 10/02 -Solu-medrol 80mg IVP Q6HR -> transition to PO steroids on 10/02 -Tylenol + anti-histamines for head ache relief -Close monitoring to assess airway stability; patient is stable at this time -Recommended follow-up with Allergy/Immunology -> assessing C1 esterase inhibitor, C4, CRP, and IgE serum levels -IgE 313.2 -> this value is greater than +1 SD of the expected value for her age group and is suggestive of a high probability of allergic disease. 2. Hypokalemia of 3.0 -> resolved on 10/01 with K 3.7 -AM BMP for monitoring 3. Metabolic acidosis with anion gap of 15, Cl 108, CO2 20 on 09/30 -Monitor the patient's disposition -PO hydration as tolerated -AG 14, Cl 114, CO2 14 on 10/01, continue to monitor 4. Leukocytosis 11.8 -> 19.4 (10/01) -Likely leukemoid reaction as stress response or from steroid use, AM CBC for monitoring -Monitor for fever or worsening symptoms -No source of infection detected at this time 5. Hypophosphatemia 1.3 on 10/01 -Replace with NaPO4 6. Hyperglycemia -Likely secondary to steroid use or possibly undiagnosed DM -A1C pending -Sliding scale with accuchecks LEAH RAMIREZ MD 10/01/22 1020: Assessment/Plan Assessment/Plan Service provided via interactive audio and video telecommunications E-CARE system to a patient admitted to ICU bed in [facility]. A medical student performed and documented this service in my presence. I reviewed and verified all information documented by the medical student and made modifications to such information, when appropriate. I personally discussed with Rn annika medical student all medical decision making. CCT 20 min Plans in collaboration with bedside consultants and IM MDs. Case and care daily discussed on multidisciplinary rounds ( RN, PharmD, Production Control Expediter , Respiratory Therapy, printing table worker ) IDALIA COLLINS Oct 01, 2022 10:02 LEAH RAMIREZ MD Oct 01, 2022 10:20
[2022-10-01] MEDS ORDERED: ESTR2TAB4 PO (10:38)
[2022-10-01] MEDS ORDERED: MULT-1136 PO (10:38)
[2022-10-01] MEDS ORDERED: OMEP20CA18 PO (10:38)
[2022-10-01] MEDS ORDERED: SEMA2.4P SQ (10:38)
[2022-10-01] MEDS ORDERED: FAMO20TA3 PO (10:38)
[2022-10-01] MEDS ORDERED: ACET-2267 PO (10:38)
[2022-10-01] MEDS ORDERED: TRZ50T PO (10:38)
[2022-10-01] MEDS ORDERED: CETI10TA17 PO (10:41)
[2022-10-01] MEDS ORDERED: MIRA50TA PO (10:41)
[2022-10-01] MEDS ORDERED: EPIN0.3P18 IM (10:42)
--- NOTE | 2022-10-01 11:54 | Tele-ICU Progress Note ---
Progress Note Patient was disconnected from epi gtt for 10 min, resulting in increased urticaria and chest tightness Angioedema is most likely mast cell-mediated) given symptoms urticaria, flushing, generalized pruritus, bronchospasm, throat tightness Will cont tx with Epi gtt , IVF, H1 and H2 bl , IV glucocorticoids IgE level , C4 and C1 inhibitor , C1 esterase level pending Monitoring airway ( less likely bradykinin-mediated angioedema , so drugs that act on the br adykinin pathway or plasma replacement probably not indicated ) ( ? vasculitis texted Dr Cavanaugh . Focused Exam Height, Weight, BMI Height: '" Weight: lbs. oz. kg; 37.14 BMI Method: LEAH RAMIREZ MD Oct 01, 2022 11:54
[2022-10-01] MEDS: LACTATED RINGERS 1,000 ML IV SCH ×2 (12:26→22:29)
--- NOTE | 2022-10-01 17:59 | Progress Note ---
Subjective Subjective/Events-last exam Patient states that they tried to decrease epi drip and she felt chest tightness and had increase in itching and hives w/n 10 mins. She feels like her throat is better but she is still having alot of itching. Review of Systems General: Fatigue Pulmonary: Dyspnea Cardiovascular: Chest Pain; No: Palpitations Gastrointestinal: No: Nausea, Vomiting, Abdominal Pain, Diarrhea, Constipation Objective Exam Last Set of Vital Signs Vital Signs Date Time Temp Pulse Resp B/P (MAP) Pulse Ox O2 Delivery O2 Flow Rate FiO2 10/01/22 17:15 92 35 150/76 (100) 95 Nasal Cannula 2.00 10/01/22 16:38 36.5 Capillary Refill : Less Than 3 Seconds I&O Intake and Output 10/01/22 00:00 Intake Total 2450 ml Balance 2450 ml Intake Oral 950 ml IV Total 1500 ml # Voids 3 Daily Weight Change No General: Alert, Oriented X3, Mild Distress (with minimal exertion) HEENT: Other (no throat edema noted) Lungs: Clear to Auscultation, Normal Air Movement Heart: Regular Rate, No Murmurs Abdomen: Normal Bowel Sounds, Soft, No Tenderness, No Masses Extremities: No Edema, No Tenderness/Swelling Skin: Other (hives present on thighs and back) Neuro: Normal Speech Results/Procedures Lab Laboratory Tests 10/01/22 03:36: White Blood Count 19.4H, Red Blood Count 3.88, Hemoglobin 11.3#L, Hematocrit 35, Mean Corpuscular Volume 90, Mean Corpuscular Hemoglobin 29, Mean Corpuscular Hemoglobin Concent 33, Red Cell Distribution Width 13.6, Platelet Count 358, Mean Platelet Volume 9.6, Immature Granulocyte % (Auto) 1, Neutrophils (%) (Auto) 90H, Lymphocytes (%) (Auto) 7L, Monocytes (%) (Auto) 2, Eosinophils (%) (Auto) 0, Basophils (%) (Auto) 0, Neutrophils # (Auto) 17.5H, Lymphocytes # (Auto) 1.4, Monocytes # (Auto) 0.4, Eosinophils # (Auto) 0.0, Basophils # (Auto) 0.0, Immature Granulocyte # (Auto) 0.1, Sodium Level 140, Potassium Level 3.7, Chloride Level 114H, Carbon Dioxide Level 14L, Anion Gap 12, Blood Urea Nitrogen 14, Creatinine 0.89, Estimat Glomerular Filtration Rate 80, BUN/Creatinine Ratio 16, Glucose Level 420*H, Calcium Level 8.9, Corrected Calcium 9.1, Phosphorus Level 1.3L, Magnesium Level 1.7, Total Bilirubin 0.3, Aspartate Amino Transf (AST/SGOT) 14, Alanine Aminotransferase (ALT/SGPT) 20, Alkaline Phosphatase 65, Total Protein 6.1L, Albumin 3.7 10/01/22 04:26: Glucometer 412*H 10/01/22 10:09: Glucometer 390H 10/01/22 16:16: Glucometer 288H Microbiology 09/30/22 MRSA Screen - Final, Complete MRSA not isolated Assessment/Plan Assessment/Plan (1) Anaphylaxis Status: Acute Assessment & Plan: - Admit to ICU for close monitoring, epi drip, H2 blockers and anti histamines and IV steroids, possible medication AE 10/01: attempted to decrease epi drip and symptoms returned quickly, likely mast cell response Qualifiers: Qualified Codes: T78.2XXA - Anaphylactic shock, unspecified, initial encounter (2) Medication adverse effect Status: Acute Qualifiers: Qualified Codes: T50.905A - Adverse effect of unspecified drugs, medicaments and biological substances, initial encounter (3) Urge incontinence Status: Chronic Assessment & Plan: - Stopping myrbetric as this is the only new med change (4) GERD (gastroesophageal reflux disease) Status: Chronic (5) Hypokalemia Status: Acute Assessment & Plan: - Replace and repeat level in AM IAN CLEMENT MD Oct 01, 2022 17:59
[2022-10-02] MEDS: EPINEPHrine 1 MG INJECTION 4 MG in NS (IVPB) 246 ML IV SCH ×4 (04:14→20:24)
[2022-10-02] MEDS: inSUlin ASPART (NovoLOG) 1 UNIT/0.01 ML (CHARGE PER UNIT) SC SCH ×4 (05:00→20:24)
[2022-10-02] MEDS: diphenhydrAMINE 50 MG/ML INJ (BENADRYL) IVP SCH ×4 (05:01→23:29)
[2022-10-02] MEDS: methylPREDNISolone 40 MG/ML (Solu-MEDROL) VIAL IV SCH ×4 (05:01→23:29)
[2022-10-02 05:30] LABS: BASOPHILS # (AUTO) 0.1 10^3/uL (0.0-0.1); BASOPHILS % (AUTO) 0 % (0-10); EOSINOPHILS % (AUTO) 0 % (0-10); HEMATOCRIT 37 % (35-52); HEMOGLOBIN 12.4 g/dL (11.5-16.0); LYMPHOCYTES # (AUTO) 1.7 10^3/uL (1.0-4.0); LYMPHOCYTES % (AUTO) 6 % (12-44); MEAN CORPUSCULAR HEMOGLOBIN 29 pg (25-34); MEAN CORPUSCULAR HGB CONC 33 g/dL (32-36); MEAN CORPUSCULAR VOLUME 88 fL (80-99); MEAN PLATELET VOLUME 9.2 fL (9.0-12.2); MONOCYTES # (AUTO) 1.1 10^3/uL (0.0-1.0); MONOCYTES % (AUTO) 4 % (0-12); NEUTROPHILS # (AUTO) 27.5 10^3/uL (1.8-7.8); NEUTROPHILS % (AUTO) 89 % (42-75); PLATELET COUNT 374 10^3/uL (130-400)
[2022-10-02 05:32] LABS: WHITE BLOOD COUNT 30.8 10^3/uL (4.3-11.0)
[2022-10-02 05:48] LABS: ALBUMIN 3.4 GM/DL (3.2-4.5); BILIRUBIN,TOTAL 0.3 MG/DL (0.1-1.0); CALCIUM 8.4 MG/DL (8.5-10.1); CREATININE SERUM 0.81 MG/DL (0.60-1.30); PHOSPHORUS 1.1 MG/DL (2.3-4.7); POTASSIUM 3.8 MMOL/L (3.6-5.0); TOTAL PROTEIN 6.1 GM/DL (6.4-8.2)
[2022-10-02] MEDS: MAGNESIUM 1 GM/100 ML IVPB 100 ML IV SCH (05:50)
[2022-10-02] MEDS: POTASSIUM CL 10MEQ/50ML IVPB 50 ML IV SCH (05:50)
[2022-10-02] MEDS: KCL 20 MEQ TAB (K-DUR) PO SCH (05:52)
[2022-10-02 06:09] LABS: LYMPHOCYTES % (MANUAL) 3 %; MONOCYTES % (MANUAL) 4 %; NEUTROPHILS % (MANUAL) 93 %; RBC MORPH NORMAL
--- NOTE | 2022-10-02 06:25 | Progress Note - Hospitalist ---
Subjective HPI/CC On Admission Date Seen by Provider: Oct 02, 2022 Time Seen by Provider: 11:00 Subjective/Events-last exam Patient seen and examined Received report from Dr Mao Herrera appears to be the source of the allergic reaction and she last took the extended release pill on Thursday Patient and spouse updated on details Steroids maintained Epi drip maintained Patient requesting anxiety meds Vitals are otherwise stable Review of Systems General: Fatigue, Malaise Objective Exam Vital Signs Vital Signs Date Time Temp Pulse Resp B/P (MAP) Pulse Ox O2 Delivery O2 Flow Rate FiO2 10/03/22 03:51 91 Nasal Cannula 3.00 10/03/22 03:00 93 26 151/98 (115) 10/03/22 00:00 36.8 Capillary Refill : Less Than 3 Seconds General Appearance: Anxious, Mild Distress, Obese Respiratory: Lungs Clear, Normal Breath Sounds Cardiovascular: Tachycardia Neurologic/Psychiatric: Alert, Oriented x3, No Motor/Sensory Deficits, Normal Mood/Affect Results/Procedures Lab Laboratory Tests 10/02/22 05:21 10/03/22 02:05 Patient resulted labs reviewed. Assessment/Plan Assessment and Plan Assess & Plan/Chief Complaint Assessment: Anaphylaxis Obesity Anxiety OAB Plan: Steroids Epi drip Monitor closely EICU appreciated DVT PPx ROSALIND DYE DO Oct 02, 2022 06:25
[2022-10-02] MEDS: ACETAMINOPHEN 500 MG TAB (TYLENOL) PO PRN ×2 (09:34→20:23)
[2022-10-02] MEDS: FAMOTIDINE 20MG/2ML IV (PEPCID) IVP SCH ×2 (09:34→20:24)
[2022-10-02] MEDS: LACTATED RINGERS 1,000 ML IV SCH (09:35)
[2022-10-02] MEDS ORDERED: LORazepam 0.5 MG (ATIVAN) TABLET PO PRN (10:30)
[2022-10-02] MEDS ORDERED: LORazepam INJ 2 MG/ML (ATIVAN) VIAL IVP PRN (10:30)
[2022-10-02] MEDS: RT-ALBUTEROL SULF 2.5 MG/3 ML PRE-MIX VIAL INH PRN ×2 (10:35→14:57)
[2022-10-02] MEDS: ENOXAPARIN 40 MG/0.4 ML (LOVENOX) SYR SC SCH (12:13)
[2022-10-02 15:08] VITALS: BP 154/87
[2022-10-02] MEDS: CALCIUM CARBONATE 500 MG (TUMS) TAB.CHEW PO PRN (19:37)
[2022-10-02] MEDS: RT-ALBUTEROL SULF 2.5 MG/3 ML PRE-MIX VIAL INH SCH (21:40)
[2022-10-03 02:14] LABS: BASOPHILS % (AUTO) 0 % (0-10); MEAN CORPUSCULAR HEMOGLOBIN 29 pg (25-34)
[2022-10-03 02:15] LABS: BASOPHILS # (AUTO) 0.1 10^3/uL (0.0-0.1); EOSINOPHILS % (AUTO) 0 % (0-10); HEMATOCRIT 36 % (35-52); LYMPHOCYTES % (AUTO) 8 % (12-44); MEAN CORPUSCULAR HGB CONC 33 g/dL (32-36); MEAN CORPUSCULAR VOLUME 87 fL (80-99); MEAN PLATELET VOLUME 9.4 fL (9.0-12.2); MONOCYTES # (AUTO) 0.8 10^3/uL (0.0-1.0); MONOCYTES % (AUTO) 3 % (0-12); NEUTROPHILS # (AUTO) 20.8 10^3/uL (1.8-7.8); NEUTROPHILS % (AUTO) 86 % (42-75); PLATELET COUNT 352 10^3/uL (130-400); WHITE BLOOD COUNT 24.3 10^3/uL (4.3-11.0)
[2022-10-03 02:50] LABS: ALBUMIN 3.4 GM/DL (3.2-4.5); BILIRUBIN,TOTAL 0.3 MG/DL (0.1-1.0); CALCIUM 8.6 MG/DL (8.5-10.1); CREATININE SERUM 0.85 MG/DL (0.60-1.30); PHOSPHORUS 1.8 MG/DL (2.3-4.7); POTASSIUM 4.2 MMOL/L (3.6-5.0); TOTAL PROTEIN 6.1 GM/DL (6.4-8.2)
[2022-10-03] MEDS: POTASSIUM CL 10MEQ/50ML IVPB 50 ML IV SCH (03:11)
[2022-10-03] MEDS: KCL 20 MEQ TAB (K-DUR) PO SCH (03:11)
[2022-10-03] MEDS: MAGNESIUM 1 GM/100 ML IVPB 100 ML IV SCH (03:11)
[2022-10-03] MEDS: diphenhydrAMINE 50 MG/ML INJ (BENADRYL) IVP SCH ×4 (05:25→23:02)
[2022-10-03] MEDS: inSUlin ASPART (NovoLOG) 1 UNIT/0.01 ML (CHARGE PER UNIT) SC SCH ×5 (05:25→21:42)
[2022-10-03] MEDS: methylPREDNISolone 40 MG/ML (Solu-MEDROL) VIAL IV SCH ×4 (05:25→23:02)
--- NOTE | 2022-10-03 05:50 | Progress Note - Hospitalist ---
Subjective HPI/CC On Admission Date Seen by Provider: Oct 03, 2022 Time Seen by Provider: 10:00 Subjective/Events-last exam Epi drip was weaned down but started hives again Poison control contacted and they had no additional recs IV steroids maintained Updated family at bedside Pepcid IV maintained O2 maintained Conferred with EICU Dr Arevalo Review of Systems General: Fatigue, Malaise hives Focused Exam Lactate Level 10/03/22 20:40: Lactic Acid Level 6.95*H Lactic Acid Level Laboratory Tests Test 10/03/22 20:40 Lactic Acid Level 6.95 MMOL/L (0.50-2.00) *H Objective Exam Vital Signs Vital Signs Date Time Temp Pulse Resp B/P (MAP) Pulse Ox O2 Delivery O2 Flow Rate FiO2 10/03/22 21:00 114 19 185/104 (131) 93 Nasal Cannula 3.00 10/03/22 07:48 36.4 Capillary Refill : Less Than 3 Seconds General Appearance: WD/WN, Anxious, Chronically ill Respiratory: Lungs Clear, Normal Breath Sounds Cardiovascular: Regular Rate, Rhythm Neurologic/Psychiatric: Alert, Oriented x3 Results/Procedures Lab Laboratory Tests 10/03/22 02:05 10/03/22 20:40 Patient resulted labs reviewed. Assessment/Plan Assessment and Plan Assess & Plan/Chief Complaint Assessment: Anaphylaxis to presumed myrbetriq Acute hypoxic respiratory failure Tachycardia Obesity Anxiety OAB chronic Plan: Steroids Epi drip Monitor closely EICU appreciated DVT PPx ROSALIND DYE DO Oct 03, 2022 05:50
[2022-10-03] MEDS: EPINEPHrine 1 MG INJECTION 4 MG in NS (IVPB) 246 ML IV SCH ×3 (06:35→23:01)
[2022-10-03] MEDS: RT-ALBUTEROL SULF 2.5 MG/3 ML PRE-MIX VIAL INH SCH ×3 (07:18→18:52)
--- NOTE | 2022-10-03 08:25 | Pulmonary Consultation ---
History of Present Illness History of Present Illness Date Seen by Provider: Oct 03, 2022 Time Seen by Provider: 10:31 Date of Admission (Tele-ICU Physician , Progress Note ) Service provided via interactive audio and video telecommunications E-CARE system to a patient admitted to ICU bed in [facility]. Patient is seen today due to persistent need of ICU care Available chart/ vitals / labs / Images reviewed Video assessment done using teleICU camera, rest of exam as per RN Discussed with RN Events overnight : Afebrile hemodynamically stable Respiratory - I/O = pos Drips: LR 50 Pressors- IV epi @ 0.04 BP has been around 160/90, not on BP meds at home, Took Myrebetriq for urinary incontinence, tooke for 30 days, dose was increased and then 3 days ago to 50 when Sx started Now on IV epi P 102, BP 150/88, spont RR 28, SpO2 92% on 3 lpm IgE level normal at 313 C1 esterase inhibitor normal at 38 C4 hi at 49, On IV Medrol, Benadryl and Famotidine, also on IV Epi for 5 days Tongue is not swollen, no difficulty breathing, now on 2 lpm Allergies and Home Medications Allergies Coded Allergies: No Known Drug Allergies (Unverified , 03/27/10) Home Medications Acetaminophen 500 Mg Tablet, 1,000 MG PO Q8H PRN for PAIN-MILD (1-4), (Reported) Cetirizine HCl 10 Mg Tablet, 10 MG PO DAILY, (Reported) Epinephrine 0.3 Mg/0.3 Ml Auto.injct, 0.3 MG IM UD PRN for SEVERE ALLERGIC REACTION, (Reported) MAY REPEAT IN 5-15 MINUTES Estradiol 2 Mg Tablet, 2 MG PO DAILY, (Reported) Famotidine 20 Mg Tablet, 20 MG PO BID PRN for HEARTBURN, (Reported) Mirabegron 50 Mg Tab.er.24h, 50 MG PO DAILY, (Reported) Multivitamin 1 Each Tablet, 1 EACH PO DAILY, (Reported) Omeprazole 20 Mg Capsule.dr, 20 MG PO HS, (Reported) Semaglutide 2.4 Mg/0.75 Ml Pen.injctr, 2.4 MG SQ SAT, (Reported) Trazodone HCl 50 Mg Tablet, 50 MG PO HS PRN for SLEEP, (Reported) Past Medical/Social/Family Hx Patient Social History Marrital Status: Living Status: Lives at home with spouse, independent with ADLs Tobacco Use?: No Smoking Status: Never a Smoker Use of E-Cig and/or Vaping dev: No Substance use?: No Alcohol Use?: No Pt stated abuse/neglect: No Immunizations Up To Date Influenza Vaccine Up-to-Date: Yes; Up-to-Date First/Initial COVID19 Vaccinat: JUL 2020 Second COVID19 Vaccination [place]: AUG 2020 Tetanus Booster (TDap): Unknown Current Status status: No Advance Directives: No Communicates: Verbally Primary Language: Greenlandic Preferred Spoken Language: Greenlandic Is interpretation needed?: No Sensory deficits: Vision impairment Implanted or Applied Medical D: None Past Medical History seasonal allergies, kidney stones, urinary incontinence secondary to neurogenic bladder HRT s/p complete hysterectomy Family Medical History Family Hx: PAST SURGICAL HISTORY: -CHOLECYSTECTOMY - -HYSTERECTOMY WITH BILATERAL SALPINGO-OOPHORECTOMY--2 SURGERIES -D&C X3 FOR MISCARRIAGES -LITHOTRIPSY Review of Systems Constitutional: see HPI EENTM: see HPI Respiratory: see HPI Cardiovascular: see HPI Gastrointestinal: see HPI Genitourinary: see HPI Musculoskeletal: see HPI Skin: see HPI Psychiatric/Neurological: See HPI Sepsis Event Evaluation Height, Weight, BMI Height: '" Weight: lbs. oz. kg; 38.59 BMI Method: Exam Exam Patient acknowledged, consented, and participated in this virtual visit which was conducted using real time audio/video Vital Signs Date Time Temp Pulse Resp B/P (MAP) Pulse Ox O2 Delivery O2 Flow Rate FiO2 10/03/22 08:00 102 28 150/88 (106) 92 Nasal Cannula 3.00 10/03/22 07:56 93 Nasal Cannula 2.00 10/03/22 07:48 36.4 Nasal Cannula 2.00 10/03/22 07:18 93 Nasal Cannula 3.00 10/03/22 07:00 105 26 157/94 (107) 92 Nasal Cannula 3.00 10/03/22 07:00 98 10/03/22 06:35 138 159/102 10/03/22 06:00 138 32 159/102 (121) 92 Nasal Cannula 3.00 10/03/22 05:48 140 10/03/22 05:21 96 10/03/22 05:00 98 27 162/91 (114) 92 Nasal Cannula 3.00 10/03/22 04:00 105 27 161/92 (115) 92 Nasal Cannula 3.00 10/03/22 04:00 36.4 91 Nasal Cannula 3.00 10/03/22 03:51 91 Nasal Cannula 3.00 10/03/22 03:00 93 26 151/98 (115) 92 Nasal Cannula 3.00 10/03/22 02:00 115 30 129/79 (96) 92 Nasal Cannula 3.00 10/03/22 01:00 98 29 147/83 (104) 92 Nasal Cannula 3.00 10/03/22 01:00 100 10/03/22 00:00 98 27 142/84 (103) 92 Nasal Cannula 3.00 10/03/22 00:00 36.8 93 Nasal Cannula 3.00 10/02/22 23:31 93 Nasal Cannula 3.00 10/02/22 23:30 129 160/94 10/02/22 23:00 116 32 160/94 (116) 92 Nasal Cannula 3.00 10/02/22 22:00 103 30 138/69 (92) 91 Nasal Cannula 3.00 10/02/22 21:40 94 Nasal Cannula 3.00 10/02/22 21:00 126 22 146/83 (104) 92 Nasal Cannula 3.00 10/02/22 20:24 104 140/85 10/02/22 20:00 128 35 159/102 (121) 91 Nasal Cannula 3.00 10/02/22 20:00 36.4 93 Nasal Cannula 3.00 10/02/22 20:00 Nasal Cannula 3.00 10/02/22 19:00 106 39 156/98 (117) 92 Nasal Cannula 2.00 10/02/22 19:00 109 10/02/22 18:33 37.0 10/02/22 18:00 104 140/85 (103) 90 Nasal Cannula 2.00 10/02/22 17:00 101 203/94 (130) 91 Nasal Cannula 2.00 10/02/22 16:02 Nasal Cannula 3.00 10/02/22 16:00 104 23 149/81 (103) 92 Nasal Cannula 2.00 10/02/22 15:08 36.2 100 91 10/02/22 15:00 91 Nasal Cannula 3.00 10/02/22 15:00 93 34 154/87 (109) 98 Nasal Cannula 2.00 10/02/22 14:11 154/87 10/02/22 14:00 93 32 174/97 (122) 90 Nasal Cannula 2.00 10/02/22 13:00 97 32 166/101 (122) 91 Nasal Cannula 2.00 10/02/22 13:00 98 10/02/22 12:10 Nasal Cannula 2.00 10/02/22 12:06 36.2 10/02/22 12:00 100 21 156/93 (114) 91 Nasal Cannula 2.00 10/02/22 11:00 118 38 169/93 (118) 92 Nasal Cannula 2.00 10/02/22 10:35 92 Nasal Cannula 3.00 10/02/22 10:00 98 37 177/92 (120) 91 Nasal Cannula 2.00 10/02/22 09:36 176/91 10/02/22 09:00 96 176/91 (119) 91 Nasal Cannula 2.00 10/02/22 08:33 37.0 I & O 10/03/22 07:00 Intake Total 2880 ml Balance 2880 ml Height & Weight Height: '" Weight: lbs. oz. kg; 38.59 BMI Method: General Appearance: No Apparent Distress, Anxious, Mild Distress, Obese HEENT: PERRL/EOMI, Other (dry oral mucosa, lips are tingling but no tongue swelling) Neck: Other (painful hives with urticaria on posterior side of neck) Respiratory: Lungs Clear, Normal Breath Sounds Cardiovascular: Regular Rate, Rhythm, Tachycardia Capillary Refill: Less Than 3 Seconds Peripheral Pulses: 2+ Radial Pulses (R) Gastrointestinal: normal bowel sounds, non tender, soft Extremity: Normal Capillary Refill, No Pedal Edema Neurologic/Psychiatric: Alert, Oriented x3, No Motor/Sensory Deficits, Normal Mood/Affect Skin: Rash ((hives on neck, torso, back, bilateral UE, groin, and bilateral thighs) Results Lab Laboratory Tests 10/02/22 05:21 10/03/22 02:05 Assessment/Plan Assessment/Plan Sounds like angioneurotic edema, will try to taper IV epi will continue steroids, H1 and H2 blockers addendum: tried to stop IV epi but RN called, pt has return of splotchy rash, restarted, spoke to Dr Mohr Critical Care: Critically Ill Patient Time spent with patient (mins): 30 SERVANDO CARRERO MD Oct 03, 2022 08:25
[2022-10-03] MEDS: FAMOTIDINE 20MG/2ML IV (PEPCID) IVP SCH ×2 (08:56→20:38)
[2022-10-03] MEDS: ENOXAPARIN 40 MG/0.4 ML (LOVENOX) SYR SC SCH (09:01)
--- NOTE | 2022-10-03 09:08 | Diagnostic Imaging Report ---
EXAM: CHEST 1 VIEW, AP/PA ONLY INDICATION: Hypoxia. COMPARISON: None. FINDINGS: Normal heart size. Prominence of interstitium. Patchy airspace opacities, greater on the right. Small left pleural effusion. No pneumothorax. Left PICC tip near the RA/SVC junction. IMPRESSION: Prominence of interstitium, patchy airspace opacities and a small left pleural effusion. Findings are most likely due to a degree of fluid overload. However, an overlying infectious process cannot be excluded. Dictated by: Dictated on workstation # [id number]
[2022-10-03] MEDS ORDERED: LACTULOSE SYRUP 10GM/15ML (ENULOSE) 30ML UDC PO ONE (10:00)
[2022-10-03] MEDS ORDERED: polyethylene glycoL POWDER 17 GM (MIRALAX) PACK PO ONE (10:00)
[2022-10-03] MEDS ORDERED: SENNA W/DOCUSATE (SENOKOT S) TABLET PO ONE (10:00)
[2022-10-03] MEDS ORDERED: LORATADINE (CLARITIN) 10 MG TAB PO ONE (10:15)
[2022-10-03] MEDS ORDERED: MONTELUKAST 10 MG (SINGULAIR) TAB PO ONE (10:15)
--- NOTE | 2022-10-03 11:49 | Physical Therapy Progress Note ---
Therapy Progress Note Patient is up independently in room per RN without difficulty. No skilled PT indicated. RN confirms PETEY BEDOYA PT Oct 03, 2022 11:49
[2022-10-03] MEDS: ACETAMINOPHEN 500 MG TAB (TYLENOL) PO PRN (14:27)
--- NOTE | 2022-10-03 14:28 | Progress Note ---
Standard Progress Note Progress Notes/Assess & Plan Date Seen by a Provider: Oct 03, 2022 Time Seen by a Provider: 14:27 Progress/Assessment & Plan Called for HTN SBP 160-180, still on IV epi needed to control her angioedema Will order Hydralzine 10 mg for SPB > 160, HR is about 100 MD ALISE Ro JOSEPH K MD Oct 03, 2022 14:28
[2022-10-03] MEDS: hydrALAZINE (APESOLINE) 20 MG/ML VIAL IV PRN ×2 (14:48→22:09)
[2022-10-03] MEDS: CALCIUM CARBONATE 500 MG (TUMS) TAB.CHEW PO PRN (16:38)
--- NOTE | 2022-10-03 16:57 | Tele-ICU Progress Note ---
Subjective Date Seen by a Provider: Oct 03, 2022 Time Seen by a Provider: 16:52 Subjective/Events-last exam called for return of facial tingling, pt feels like can not take a deep breath. IV Epi was increased, given early dose of IV Bneadryl 25 mg and IV Medrol 80 Pt feels a little better, BP also better after IV Hyralazine HR 100 to 110, Lungs are clear, no wheezing, SpO2 95%, spont RR in mid 20's As just given all 3 Rx for angioedema, will wait and see if improves, will get CXR looking for other explanations for SOB like PMNX or infiltrate Sepsis Event Evaluation Height, Weight, BMI Height: '" Weight: lbs. oz. kg; 38.59 BMI Method: Exam Exam Patient acknowledged, consented, and participated in this virtual visit which was conducted using real time audio/video Vital Signs Date Time Temp Pulse Resp B/P (MAP) Pulse Ox O2 Delivery O2 Flow Rate FiO2 10/03/22 16:32 131 144/86 10/03/22 16:00 108 25 140/80 (93) 92 Nasal Cannula 3.00 10/03/22 15:00 117 31 132/84 (94) 93 Nasal Cannula 3.00 10/03/22 14:50 92 Nasal Cannula 1.00 10/03/22 14:00 92 27 183/121 (135) 90 Nasal Cannula 3.00 10/03/22 13:00 104 10/03/22 13:00 96 163/96 (112) 90 Nasal Cannula 3.00 10/03/22 12:21 93 Nasal Cannula 1.00 10/03/22 12:00 114 35 127/85 (98) 90 Nasal Cannula 3.00 10/03/22 11:00 105 33 160/97 (111) 93 Nasal Cannula 3.00 10/03/22 10:00 95 27 155/93 (113) 93 Nasal Cannula 3.00 10/03/22 09:00 109 32 193/128 (147) 92 Nasal Cannula 3.00 10/03/22 08:00 102 28 150/88 (106) 92 Nasal Cannula 3.00 10/03/22 07:56 93 Nasal Cannula 2.00 10/03/22 07:48 36.4 Nasal Cannula 2.00 10/03/22 07:18 93 Nasal Cannula 3.00 10/03/22 07:00 105 26 157/94 (107) 92 Nasal Cannula 3.00 10/03/22 07:00 98 10/03/22 06:35 138 159/102 10/03/22 06:00 138 32 159/102 (121) 92 Nasal Cannula 3.00 10/03/22 05:48 140 10/03/22 05:21 96 10/03/22 05:00 98 27 162/91 (114) 92 Nasal Cannula 3.00 10/03/22 04:00 105 27 161/92 (115) 92 Nasal Cannula 3.00 10/03/22 04:00 36.4 91 Nasal Cannula 3.00 10/03/22 03:51 91 Nasal Cannula 3.00 10/03/22 03:00 93 26 151/98 (115) 92 Nasal Cannula 3.00 10/03/22 02:00 115 30 129/79 (96) 92 Nasal Cannula 3.00 10/03/22 01:00 98 29 147/83 (104) 92 Nasal Cannula 3.00 10/03/22 01:00 100 10/03/22 00:00 98 27 142/84 (103) 92 Nasal Cannula 3.00 10/03/22 00:00 36.8 93 Nasal Cannula 3.00 10/02/22 23:31 93 Nasal Cannula 3.00 10/02/22 23:30 129 160/94 10/02/22 23:00 116 32 160/94 (116) 92 Nasal Cannula 3.00 10/02/22 22:00 103 30 138/69 (92) 91 Nasal Cannula 3.00 10/02/22 21:40 94 Nasal Cannula 3.00 10/02/22 21:00 126 22 146/83 (104) 92 Nasal Cannula 3.00 10/02/22 20:24 104 140/85 10/02/22 20:00 128 35 159/102 (121) 91 Nasal Cannula 3.00 10/02/22 20:00 36.4 93 Nasal Cannula 3.00 10/02/22 20:00 Nasal Cannula 3.00 10/02/22 19:00 106 39 156/98 (117) 92 Nasal Cannula 2.00 10/02/22 19:00 109 10/02/22 18:33 37.0 10/02/22 18:00 104 140/85 (103) 90 Nasal Cannula 2.00 10/02/22 17:00 101 203/94 (130) 91 Nasal Cannula 2.00 I & O 10/03/22 07:00 Intake Total 2880 ml Balance 2880 ml Height & Weight Height: '" Weight: lbs. oz. kg; 38.59 BMI Method: General Appearance: No Apparent Distress, Anxious, Mild Distress, Obese HEENT: PERRL/EOMI, Other (dry oral mucosa, lips are tingling but no tongue sw elling) Neck: Other (painful hives with urticaria on posterior side of neck) Respiratory: Lungs Clear, Normal Breath Sounds Cardiovascular: Regular Rate, Rhythm, Tachycardia Capillary Refill: Less Than 3 Seconds Peripheral Pulses: 2+ Radial Pulses (R) Gastrointestinal: normal bowel sounds, non tender, soft Extremity: Normal Capillary Refill, No Pedal Edema Neurologic/Psychiatric: Alert, Oriented x3, No Motor/Sensory Deficits, Normal Mood/Affect Skin: Rash ((hives on neck, torso, back, bilateral UE, groin, and bilateral thighs) Results Lab Laboratory Tests 10/02/22 05:21 10/03/22 02:05 Assessment/Plan Assessment/Plan angioedema, is on IV epi, given in past 10 min, IV Benadryl and IV Medrol will get CXR, serum tryptase as recommended by poison control Critical Care: Critically Ill Patient Time spent with patient (mins): 25 SERVANDO CARRERO MD Oct 03, 2022 16:57
--- NOTE | 2022-10-03 19:50 | Physician Query Clarification ---
Physician Query-General Query to Physician: The medical record reflects the following clinical evidence: Clinical Indicators: Respiratory rate has mostly been 30 and above was 20 on first recording and 30 on the next recording of RR, has been on nasal cannula since the which is day 2 of admission has been on a max of 3 L, lowest O2 sat recorded on oxygen is 90%, this was on 2 L (P/F= 214) was 88% on room air (P/F=262) thus was started on oxygen was frequently 90 to 91% while on oxygen no respiratory signs and symptoms on admission but on the documentation of shortness of air at rest and with exertion Risk Factor(s): Anaphylaxis, No Hx of pulmonary conditions or use of 02 Treatment: Supplement 02 up to 3L, Respiratory monitoring in the ICU, IV steroids, Epi Gtt Acute respiratory failure with hypoxia in the setting of anaphylaxis Other explanation of clinical findings Unable to determine (no explanation for clinical findings) Please clarify and document your clinical opinion in the progress notes and discharge summary including the definitive and/or presumptive diagnosis, (suspected or probable), related to the above clinical findings. Please include clinical findings supporting your diagnosis. Dea Bloom, MSN, RN Clinical Beekeeper [phone] [email or web address] PHYSICIAN RESPONSE: Based on the clinical findings in the record, please respond to the query above on this document as an addendum. Physician Response: Physician Response Acute respiratory failure with hypoxia in the setting of anaphylaxis If you have questions please contact: Chargemaster Specialist: Ext: Thank you for your time and cooperation. Clinical Beekeeper/Chargemaster Specialist This is a permanent part of the medical record DEA BLOOM Oct 03, 2022 19:50 ROSALIND DYE DO Oct 03, 2022 21:19
--- NOTE | 2022-10-03 20:51 | Tele-ICU Progress Note ---
Progress Note Tele ICU Phone notification by bedside nursing Accucheck exceeds 400/ Called by nursing because marked elevated glucoses, despite being on defined, ordered subcutaneous insulin with meals. She is on a general diet since admit and has been taking sugar containing PO soda. Family at bedside. HR 98 sinus, RR 28 sats 93% on N/C Current medications reviewed. Reviewed earlier notes Glucoses since 09/30 recorded at levels 187- 400s. Anion gaps 12-15. A: Hyperglycemia (added to the Mybetriq allergic/anaphylactic reaction problems under treatment) P: Will obtain stat labs now- BMP, Mg, Phos, Lactate , UA, urine drug screen,beta hydroxybuturate. Change diet to low carb, 1800 tim , no sugar drinks, Recheck Accucheck 1 hour after current insulin and with the stat labs reported to see if additional orders are also needed. D/W bedside nursing. Focused Exam Height, Weight, BMI Height: '" Weight: lbs. oz. kg; 38.59 BMI Method: LAUREN BUSBY DO Oct 03, 2022 20:51
[2022-10-03 21:05] LABS: BASOPHILS # (AUTO) 0.1 10^3/uL (0.0-0.1); BASOPHILS % (AUTO) 0 % (0-10); EOSINOPHILS % (AUTO) 0 % (0-10); HEMATOCRIT 37 % (35-52); HEMOGLOBIN 12.2 g/dL (11.5-16.0); LYMPHOCYTES # (AUTO) 1.3 10^3/uL (1.0-4.0); LYMPHOCYTES % (AUTO) 7 % (12-44); MEAN CORPUSCULAR HEMOGLOBIN 29 pg (25-34); MEAN CORPUSCULAR HGB CONC 33 g/dL (32-36); MEAN CORPUSCULAR VOLUME 88 fL (80-99); MEAN PLATELET VOLUME 9.7 fL (9.0-12.2); MONOCYTES # (AUTO) 0.8 10^3/uL (0.0-1.0); MONOCYTES % (AUTO) 4 % (0-12); NEUTROPHILS # (AUTO) 15.7 10^3/uL (1.8-7.8); NEUTROPHILS % (AUTO) 83 % (42-75); PLATELET COUNT 391 10^3/uL (130-400); WHITE BLOOD COUNT 18.9 10^3/uL (4.3-11.0)
[2022-10-03 21:19] LABS: CREATININE SERUM 1.28 MG/DL (0.60-1.30); MAGNESIUM 1.9 MG/DL (1.6-2.4); PHOSPHORUS 1.3 MG/DL (2.3-4.7); POTASSIUM 3.9 MMOL/L (3.6-5.0)
[2022-10-03 22:02] LABS: BILIRUBIN,URINE NEGATIVE (NEGATIVE); CLARITY,URINE CLEAR; COLOR,URINE YELLOW; GLUCOSE, URINE (UA) 3+ (NEGATIVE); KETONES,URINE NEGATIVE (NEGATIVE); LEUKOCYTE ESTERASE ,URINE NEGATIVE (NEGATIVE); NITRITE,URINE NEGATIVE (NEGATIVE); PROTEIN,URINE NEGATIVE (NEGATIVE)
[2022-10-03] MEDS: inSUlin (REGULAR) HUMAN 1 UNIT/0.01 ML (CHARGE PER UNIT) SC ONE ×2 (22:10→23:13)
[2022-10-03 22:16] LABS: AMORPHOUS SEDIMENT,UR FEW AMOR URATES /LPF; BACTERIA,URINE TRACE /HPF; SQUAMOUS EPITHELIAL CELL,UR 0-2 /HPF
[2022-10-03] MEDS ORDERED: POT PHOS/NA PHOS (K-PHOS NEUTRAL) PO ONE (22:30)
[2022-10-03 22:33] LABS: AMPHETAMINE SCREEN, URINE NEGATIVE (NEGATIVE); BARBITURATE SCREEN URINE NEGATIVE (NEGATIVE); BENZODIAZEPINES SCREEN URINE NEGATIVE (NEGATIVE); CANNABINOID SCREEN, URINE NEGATIVE (NEGATIVE); COCAINE SCREEN URINE NEGATIVE (NEGATIVE); METHADONE STAT NEGATIVE (NEGATIVE); OPIATE SCREEN URINE NEGATIVE (NEGATIVE); OXYCODONE STAT NEGATIVE (NEGATIVE); PROPOXYPHENE STAT NEGATIVE (NEGATIVE); TRICYCLIC ANTIDEPRESSANTS SCRE NEGATIVE (NEGATIVE)
[2022-10-03] MEDS ORDERED: SODIUM PHOSPHATE INJ 30 MM in NS (IVPB) 250 ML INJ ONE (23:00)
[2022-10-04 03:51] LABS: BASOPHILS # (AUTO) 0.1 10^3/uL (0.0-0.1); BASOPHILS % (AUTO) 0 % (0-10); EOSINOPHILS % (AUTO) 0 % (0-10); HEMATOCRIT 36 % (35-52); LYMPHOCYTES # (AUTO) 1.4 10^3/uL (1.0-4.0); LYMPHOCYTES % (AUTO) 8 % (12-44); MEAN CORPUSCULAR HEMOGLOBIN 29 pg (25-34); MEAN CORPUSCULAR HGB CONC 33 g/dL (32-36); MEAN CORPUSCULAR VOLUME 87 fL (80-99); MEAN PLATELET VOLUME 9.4 fL (9.0-12.2); MONOCYTES # (AUTO) 0.9 10^3/uL (0.0-1.0); MONOCYTES % (AUTO) 5 % (0-12); NEUTROPHILS # (AUTO) 14.9 10^3/uL (1.8-7.8); NEUTROPHILS % (AUTO) 81 % (42-75); PLATELET COUNT 375 10^3/uL (130-400); WHITE BLOOD COUNT 18.4 10^3/uL (4.3-11.0)
[2022-10-04 04:14] LABS: ALBUMIN 3.5 GM/DL (3.2-4.5); BILIRUBIN,TOTAL 0.4 MG/DL (0.1-1.0); CALCIUM 9.1 MG/DL (8.5-10.1); CREATININE SERUM 0.89 MG/DL (0.60-1.30); MAGNESIUM 1.9 MG/DL (1.6-2.4); PHOSPHORUS 2.3 MG/DL (2.3-4.7); POTASSIUM 3.8 MMOL/L (3.6-5.0); TOTAL PROTEIN 6.4 GM/DL (6.4-8.2)
[2022-10-04] MEDS: MAGNESIUM 1 GM/100 ML IVPB 100 ML IV SCH ×3 (04:24→05:15)
[2022-10-04] MEDS: POTASSIUM CL 10MEQ/50ML IVPB 50 ML IV SCH (04:24)
[2022-10-04] MEDS: KCL 20 MEQ TAB (K-DUR) PO SCH (04:25)
[2022-10-04] MEDS ORDERED: KCL 20 MEQ TAB (K-DUR) PO ONE ×2 (04:46→08:00)
[2022-10-04] MEDS: diphenhydrAMINE 50 MG/ML INJ (BENADRYL) IVP SCH ×4 (05:13→23:22)
[2022-10-04] MEDS: methylPREDNISolone 40 MG/ML (Solu-MEDROL) VIAL IV SCH ×4 (05:13→23:21)
[2022-10-04] MEDS: EPINEPHrine 1 MG INJECTION 4 MG in NS (IVPB) 246 ML IV SCH ×2 (05:14→18:13)
[2022-10-04] MEDS: inSUlin ASPART (NovoLOG) 1 UNIT/0.01 ML (CHARGE PER UNIT) SC SCH ×5 (05:17→21:53)
[2022-10-04] MEDS: hydrALAZINE (APESOLINE) 20 MG/ML VIAL IV PRN ×3 (05:17→16:31)
[2022-10-04] MEDS: CALCIUM CARBONATE 500 MG (TUMS) TAB.CHEW PO PRN ×2 (05:24→19:48)
[2022-10-04] MEDS: RT-ALBUTEROL SULF 2.5 MG/3 ML PRE-MIX VIAL INH SCH ×3 (07:55→21:01)
[2022-10-04] MEDS: MONTELUKAST 10 MG (SINGULAIR) TAB PO SCH (08:26)
[2022-10-04] MEDS: ENOXAPARIN 40 MG/0.4 ML (LOVENOX) SYR SC SCH (08:26)
[2022-10-04] MEDS: FAMOTIDINE 20MG/2ML IV (PEPCID) IVP SCH ×2 (08:26→21:58)
[2022-10-04] MEDS: LORATADINE (CLARITIN) 10 MG TAB PO SCH (08:26)
--- NOTE | 2022-10-04 08:40 | Tele-ICU Progress Note ---
Progress Note video rounds completed 46 y/o f admitted with angioedema an dallergic rx to meds, possible Baciliotrjory ( for overactive bladder ) Was on epinephrine drip for low BP PE: awake and alert Pulse: 101 BP: 138/83 Had trouble with blood sugar Insulin and diet adjusted IMP; angioedema improved PLAN: continue blood sugar management Time spent with patient and review of labs, etc : 15 min Focused Exam Lactate Level 10/04/22 00:34: Lactic Acid Level 5.97*H 10/04/22 03:30: Lactic Acid Level 3.56*H 10/04/22 06:25: Lactic Acid Level 2.45*H Height, Weight, BMI Height: '" Weight: lbs. oz. kg; 38.28 BMI Method: Lactic Acid Level Laboratory Tests Test 10/04/22 06:25 Lactic Acid Level 2.45 MMOL/L (0.50-2.00) *H Labs Laboratory Tests 10/03/22 20:40 10/04/22 03:30 Results Results/Procedures Lab Laboratory Tests 10/03/22 02:05 10/03/22 20:40 10/04/22 03:30 Results Labs Labs Laboratory Tests 10/03/22 10:20: Glucometer 212H 10/03/22 16:54: Glucometer 419*H 10/03/22 19:56: Glucometer 494*H 10/03/22 20:05: 10/03/22 20:40: White Blood Count 18.9H, Red Blood Count 4.19, Hemoglobin 12.2, Hematocrit 37, Mean Corpuscular Volume 88, Mean Corpuscular Hemoglobin 29, Mean Corpuscular Hemoglobin Concent 33, Red Cell Distribution Width 13.9, Platelet Count 391, Mean Platelet Volume 9.7, Immature Granulocyte % (Auto) 5, Neutrophils (%) (Auto) 83H, Lymphocytes (%) (Auto) 7L, Monocytes (%) (Auto) 4, Eosinophils (%) (Auto) 0, Basophils (%) (Auto) 0, Neutrophils # (Auto) 15.7H, Lymphocytes # (Auto) 1.3, Monocytes # (Auto) 0.8, Eosinophils # (Auto) 0.0, Basophils # (Auto) 0.1, Immature Granulocyte # (Auto) 1.0H, Sodium Level 140, Potassium Level 3.9, Chloride Level 107, Carbon Dioxide Level 13L, Anion Gap 20H, Blood Urea Nitrogen 19H, Creatinine 1.28, Estimat Glomerular Filtration Rate 52, BUN/Creatinine Ratio 15, Glucose Level 556*H, Lactic Acid Level 6.95*H, Calcium Level 9.0, Phosphorus Level 1.3L, Magnesium Level 1.9, Beta-Hydroxybutyrate (Chem panel) 0.27 10/03/22 21:27: Glucometer 439*H 10/03/22 21:51: Urine Color YELLOW, Urine Clarity CLEAR, Urine pH 6.0, Urine Specific [place] 1.010L, Urine Protein NEGATIVE, Urine Glucose (UA) 3+H, Urine Ketones NEGATIVE, Urine Nitrite NEGATIVE, Urine Bilirubin NEGATIVE, Urine Urobilinogen 0.2, Urine Leukocyte Esterase NEGATIVE, Urine RBC (Auto) NEGATIVE, Urine RBC NONE, Urine WBC NONE, Urine Squamous Epithelial Cells 0-2, Urine Crystals PRESENTH, Urine Amorphous Sediment FEW CADENCE URATESH, Urine Bacteria TRACE, Urine Casts NONE, Urine Mucus NEGATIVE, Urine Culture Indicated NO, Urine Opiates Screen NEGATIVE, Urine Oxycodone Screen NEGATIVE, Urine Methadone Screen NEGATIVE, Urine Propoxyphene Screen NEGATIVE, Urine Barbiturates Screen NEGATIVE, Ur Tricyclic Antidepressants Screen NEGATIVE, Urine Phencyclidine Screen NEGATIVE, Urine Amphetamines Screen NEGATIVE, Urine Methamphetamines Screen NEGATIVE, Urine Benzodiazepines Screen NEGATIVE, Urine Cocaine Screen NEGATIVE, Urine Cannabinoids Screen NEGATIVE 10/03/22 23:00: Glucometer 377H 10/03/22 23:05: Lactic Acid Level 5.11*H 10/04/22 00:34: Lactic Acid Level 5.97*H, Troponin I 0.035H 10/04/22 03:30: Lactic Acid Level 3.56*H, White Blood Count 18.4H, Red Blood Count 4.14, Hemoglobin 12.0, Hematocrit 36, Mean Corpuscular Volume 87, Mean Corpuscular Hemoglobin 29, Mean Corpuscular Hemoglobin Concent 33, Red Cell Distribution Width 13.9, Platelet Count 375, Mean Platelet Volume 9.4, Immature Granulocyte % (Auto) 6, Neutrophils (%) (Auto) 81H, Lymphocytes (%) (Auto) 8L, Monocytes (%) (Auto) 5, Eosinophils (%) (Auto) 0, Basophils (%) (Auto) 0, Neutrophils # (Auto) 14.9H, Lymphocytes # (Auto) 1.4, Monocytes # (Auto) 0.9, Eosinophils # (Auto) 0.0, Basophils # (Auto) 0.1, Immature Granulocyte # (Auto) 1.1H, Sodium Level 144, Potassium Level 3.8, Chloride Level 111H, Carbon Dioxide Level 18L, Anion Gap 15H, Blood Urea Nitrogen 16, Creatinine 0.89, Estimat Glomerular Filtration Rate 80, BUN/Creatinine Ratio 18, Glucose Level 266H, Calcium Level 9.1, Corrected Calcium 9.5, Phosphorus Level 2.3, Magnesium Level 1.9, Total Bilirubi n 0.4, Aspartate Amino Transf (AST/SGOT) 16, Alanine Aminotransferase (ALT/SGPT) 23, Alkaline Phosphatase 71, B-Type Natriuretic Peptide 298.6H, Total Protein 6.4, Albumin 3.5 10/04/22 06:25: Lactic Acid Level 2.45*H Microbiology 09/30/22 MRSA Screen - Final, Complete MRSA not isolated SERVANDO DELGDAO MD Oct 04, 2022 08:40
--- NOTE | 2022-10-04 09:21 | Progress Note - Hospitalist ---
Subjective HPI/CC On Admission Date Seen by Provider: Oct 04, 2022 Time Seen by Provider: 08:15 Subjective/Events-last exam Patient denies any issues with hives chest discomfort or shortness of breath since attempts yesterday at weaning epinephrine drip were unsuccessful with recurrence of generalized hives anxiety with mild shortness of breath but no evidence for hypoxemia and normal chest evaluation per nursing staff at the time. Resumption of epinephrine ameliorate his symptoms fairly quickly. She reports no problems since. Focused Exam Lactate Level 10/04/22 00:34: Lactic Acid Level 5.97*H 10/04/22 03:30: Lactic Acid Level 3.56*H 10/04/22 06:25: Lactic Acid Level 2.45*H Lactic Acid Level Laboratory Tests Test 10/04/22 06:25 Lactic Acid Level 2.45 MMOL/L (0.50-2.00) *H Objective Exam Vital Signs Vital Signs Date Time Temp Pulse Resp B/P (MAP) Pulse Ox O2 Delivery O2 Flow Rate FiO2 10/04/22 08:00 101 34 148/86 (101) 91 Nasal Cannula 10/04/22 07:55 1.00 10/04/22 07:49 36.4 Capillary Refill : Less Than 3 Seconds General Appearance: No Apparent Distress, Anxious Respiratory: Chest Non Tender, Lungs Clear, Normal Breath Sounds, No Accessory Muscle Use, No Respiratory Distress Cardiovascular: Regular Rate, Rhythm, No Edema, No Gallop, No JVD, No Murmur, Normal Peripheral Pulses Gastrointestinal: Normal Bowel Sounds, No Organomegaly, No Pulsatile Mass, Non Tender, Soft Skin: Normal Color, Warm/Dry, Other (No hives or rash noted.) Results/Procedures Lab Laboratory Tests 10/03/22 20:40 10/04/22 03:30 Patient resulted labs reviewed. Assessment/Plan Assessment and Plan Assess & Plan/Chief Complaint Assessment: Anaphylaxis to presumed myrbetriq 10/04: In discussion with poison control due to the long half-life of Myrbetriq will likely be in her system for another 24 hours will attempt epinephrine weaning tomorrow and continue ICU monitoring. 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 Complex medical management. Acute hypoxic respiratory failure Tachycardia Obesity Anxiety OAB chronic Plan: Steroids Epi drip Monitor closely EICU appreciated DVT PPx Critical Care Critically Ill Patient ADAM SHAIKH MD Oct 04, 2022 09:21
[2022-10-05 04:11] LABS: BASOPHILS % (AUTO) 0 % (0-10); EOSINOPHILS % (AUTO) 0 % (0-10); HEMATOCRIT 35 % (35-52); HEMOGLOBIN 11.3 g/dL (11.5-16.0); LYMPHOCYTES # (AUTO) 1.4 10^3/uL (1.0-4.0); LYMPHOCYTES % (AUTO) 11 % (12-44); MEAN CORPUSCULAR HEMOGLOBIN 29 pg (25-34); MEAN CORPUSCULAR HGB CONC 33 g/dL (32-36); MEAN CORPUSCULAR VOLUME 88 fL (80-99); MEAN PLATELET VOLUME 9.5 fL (9.0-12.2); MONOCYTES # (AUTO) 0.6 10^3/uL (0.0-1.0); MONOCYTES % (AUTO) 4 % (0-12); NEUTROPHILS # (AUTO) 10.4 10^3/uL (1.8-7.8); NEUTROPHILS % (AUTO) 79 % (42-75); PLATELET COUNT 266 10^3/uL (130-400); WHITE BLOOD COUNT 13.2 10^3/uL (4.3-11.0)
[2022-10-05 04:29] LABS: ALBUMIN 3.3 GM/DL (3.2-4.5); POTASSIUM 4.4 MMOL/L (3.6-5.0)
[2022-10-05 04:30] LABS: CALCIUM 8.9 MG/DL (8.5-10.1)
[2022-10-05 04:31] LABS: TOTAL PROTEIN 5.8 GM/DL (6.4-8.2)
[2022-10-05 04:33] LABS: BILIRUBIN,TOTAL 0.3 MG/DL (0.1-1.0)
[2022-10-05 04:35] LABS: CREATININE SERUM 0.85 MG/DL (0.60-1.30); PHOSPHORUS 3.5 MG/DL (2.3-4.7)
[2022-10-05 04:38] LABS: MAGNESIUM 2.2 MG/DL (1.6-2.4)
[2022-10-05 04:57] LABS: SMEAR SCAN COMMENT YES
[2022-10-05] MEDS: POTASSIUM CL 10MEQ/50ML IVPB 50 ML IV SCH (05:33)
[2022-10-05] MEDS: MAGNESIUM 1 GM/100 ML IVPB 100 ML IV SCH (05:33)
[2022-10-05] MEDS: KCL 20 MEQ TAB (K-DUR) PO SCH (05:33)
[2022-10-05] MEDS: inSUlin ASPART (NovoLOG) 1 UNIT/0.01 ML (CHARGE PER UNIT) SC SCH ×2 (05:38)
[2022-10-05] MEDS: methylPREDNISolone 40 MG/ML (Solu-MEDROL) VIAL IV SCH ×2 (05:54→12:09)
[2022-10-05] MEDS: diphenhydrAMINE 50 MG/ML INJ (BENADRYL) IVP SCH ×4 (05:54→23:37)
[2022-10-05] MEDS: RT-ALBUTEROL SULF 2.5 MG/3 ML PRE-MIX VIAL INH SCH ×3 (07:37→20:07)
[2022-10-05] MEDS: FAMOTIDINE 20MG/2ML IV (PEPCID) IVP SCH ×2 (08:34→20:45)
[2022-10-05] MEDS: MONTELUKAST 10 MG (SINGULAIR) TAB PO SCH (08:34)
[2022-10-05] MEDS: LORATADINE (CLARITIN) 10 MG TAB PO SCH (08:34)
--- NOTE | 2022-10-05 10:20 | Progress Note - Hospitalist ---
Subjective HPI/CC On Admission Date Seen by Provider: Oct 05, 2022 Time Seen by Provider: 09:30 Subjective/Events-last exam Patient reports no lip tingling which is the first sign that allergic reactions are recurring she has had no chest pain or shortness of breath and was able to get some sleep last night. She has been titrated down to 0.1 micrograms Levophed. No rashes or itching reported. Focused Exam Lactate Level 10/04/22 00:34: Lactic Acid Level 5.97*H 10/04/22 03:30: Lactic Acid Level 3.56*H 10/04/22 06:25: Lactic Acid Level 2.45*H Objective Exam Vital Signs Vital Signs Date Time Temp Pulse Resp B/P (MAP) Pulse Ox O2 Delivery O2 Flow Rate FiO2 10/05/22 09:00 85 22 142/91 (105) 94 Room Air 10/05/22 08:38 36.5 10/04/22 23:37 10/04/22 11:47 1.00 Capillary Refill : Less Than 3 Seconds General Appearance: No Apparent Distress, WD/WN Respiratory: Chest Non Tender, Lungs Clear, Normal Breath Sounds, No Accessory Muscle Use, No Respiratory Distress Cardiovascular: Regular Rate, Rhythm, No Edema, No Gallop, No JVD, No Murmur, Normal Peripheral Pulses Gastrointestinal: Normal Bowel Sounds, No Organomegaly, No Pulsatile Mass, Non Tender, Soft Skin: Normal Color, Other (No evidence for urticaria.) Results/Procedures Lab Laboratory Tests 10/05/22 03:45 Patient resulted labs reviewed. Assessment/Plan Assessment and Plan Assess & Plan/Chief Complaint Assessment: Anaphylaxis to presumed myrbetriq 10/04: In discussion with poison control due to the long half-life of Myrbetriq will likely be in her system for another 24 hours will attempt epinephrine weaning tomorrow and continue ICU monitoring. 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 Complex medical management. 10/05: No evidence for urticaria or anaphylaxis will discontinue Levophed monitor in the unit today with discharge to floor and will need to initiate Solu-Medrol taper if the patient continues to do well. Blood sugars been well below 200 and the patient has not required any insulin since yesterday on the lower glycemic diet. Acute hypoxic respiratory failure Tachycardia Obesity Anxiety OAB chronic Plan: Steroids Epi drip Monitor closely EICU appreciated DVT PPx Critical Care Critically Ill Patient ADAM SHAIKH MD Oct 05, 2022 10:20
--- NOTE | 2022-10-05 11:07 | Tele-ICU Progress Note ---
Subjective Date Seen by a Provider: Oct 05, 2022 Time Seen by a Provider: 11:06 Subjective/Events-last exam (Tele-ICU Physician , Progress Note ) Service provided via interactive audio and video telecommunications E-CARE system to a patient admitted to ICU bed in [facility]. Patient is seen today due to persistent need of ICU care Available chart/ vitals / labs / Images reviewed Video assessment done using teleICU camera, rest of exam as per RN Discussed with RN Events overnight : Afebrile hemodynamically stable Respiratory - I/O = Drips: Pressors- no Hospital course: A/P Anaphylaxis to presumed myrbetriq 10/04: In discussion with poison control due to the long half-life of Myrbetriq will likely be in her system for another 24 hours - -off epi gtt attempt 10/05 -Solu-Medrol taper if the patient continues to do well, and change H2 nl to po steroid-induced hyperglycemia - as per PCP Tachycardia- with epi effect Obesity Lines : , (Central Line Necessity Reviewed) Montes: OG: Nutrition: Analgesia: Anxiety/ delirium VTE Prophylaxis: cathryn 40 Stress Ulcer Prophylaxis: ppi Plans in collaboration with bedside consultants and IM MDs. Discussed with RN to reach out if any questions or concerns Case and care daily discussed on multidisciplinary rounds ( RN, PharmD, Direct Support Worker , Respiratory Therapy, laceworker ) A total of 15 minutes of critical care time was devoted to this patient today, required to treat and/or prevent further deterioration of critical care condition ( as above ) . I am remotely monitoring this patient from another state. I am unable to do the bedside exam, and history/physical and pertinent information is taken from other notes in the computer and bedside staff. Sepsis Event Evaluation Height, Weight, BMI Height: '" Weight: lbs. oz. kg; 37.18 BMI Method: Focused Exam Lactate Level 10/04/22 00:34: Lactic Acid Level 5.97*H 10/04/22 03:30: Lactic Acid Level 3.56*H 10/04/22 06:25: Lactic Acid Level 2.45*H Exam Exam Patient acknowledged, consented, and participated in this virtual visit which was conducted using real time audio/video Vital Signs Date Time Temp Pulse Resp B/P (MAP) Pulse Ox O2 Delivery O2 Flow Rate FiO2 10/05/22 10:00 77 18 141/82 (101) 92 Room Air 10/05/22 09:00 85 22 142/91 (105) 94 Room Air 10/05/22 08:43 98 Room Air 10/05/22 08:38 36.5 10/05/22 08:00 96 21 147/82 (101) 94 Room Air 10/05/22 07:40 96 Room Air 10/05/22 07:00 71 21 144/80 (95) 93 Room Air 10/05/22 07:00 85 10/05/22 06:00 89 141/74 (96) 92 Room Air 10/05/22 05:00 79 147/76 (99) 92 Room Air 10/05/22 04:00 95 Room Air 10/05/22 04:00 68 141/76 (97) 92 Room Air 10/05/22 03:00 73 139/79 (99) 92 Room Air 10/05/22 02:00 75 148/74 (98) 93 Room Air 10/05/22 01:00 73 10/05/22 01:00 80 133/94 (107) 95 Room Air 10/05/22 00:29 36.9 87 28 125/75 (92) 93 10/05/22 00:00 84 130/80 (97) 91 Room Air 10/04/22 23:37 93 Room Air 10/04/22 23:00 82 143/81 (101) 90 Room Air 10/04/22 22:00 92 143/77 (99) 94 Room Air 10/04/22 21:01 97 Room Air 10/04/22 21:00 87 122/72 (89) 91 Room Air 10/04/22 20:00 36.1 10/04/22 20:00 113 19 145/83 (103) 92 Room Air 10/04/22 20:00 96 Room Air 10/04/22 19:44 98 145/93 10/04/22 19:00 121 19 145/93 (110) 95 Room Air 10/04/22 19:00 129 10/04/22 18:13 115 112/65 10/04/22 18:00 105 20 112/65 (79) 93 Room Air 10/04/22 17:00 110 18 133/86 (98) 93 Room Air 10/04/22 16:00 96 Room Air 10/04/22 16:00 107 25 190/107 (128) 90 Room Air 10/04/22 16:00 36.2 10/04/22 15:15 96 Room Air 10/04/22 15:00 104 24 189/102 (124) 92 Room Air 10/04/22 14:00 95 24 186/97 (123) 90 Room Air 10/04/22 13:00 104 20 114/72 (85) 91 Room Air 10/04/22 12:35 97 10/04/22 12:00 99 32 174/97 (123) 92 Room Air 10/04/22 11:50 36.2 10/04/22 11:47 94 Nasal Cannula 1.00 10/04/22 11:16 Room Air I & O 10/05/22 07:00 Intake Total 2050 ml Output Total 2850 ml Balance -800 ml Height & Weight Height: '" Weight: lbs. oz. kg; 37.18 BMI Method: General Appearance: No Apparent Distress, WD/WN HEENT: PERRL/EOMI, Pharynx Normal, Moist Mucous Membranes, Other (PT HAS MILD SWELLING TO PERIORBITAL AREA AND BRIDGE OF NOSE. SHE ALSO HAS MILD SWELLING TO BOTH UPPER AND LOWER LIPS. NO INTRA-ORAL SWELLING. VOICE IS SLIGHTLY HOARSE. ) Neck: Full Range of Motion, Normal Inspection, Non Tender, Supple Respiratory: Chest Non Tender, Lungs Clear, Normal Breath Sounds, No Accessory Muscle Use, No Respiratory Distress Cardiovascular: Regular Rate, Rhythm, No Edema, No Gallop, No JVD, No Murmur, Normal Peripheral Pulses Capillary Refill: Less Than 3 Seconds Peripheral Pulses: 2+ Radial Pulses (R) Gastrointestinal: normal bowel sounds, non tender, soft Extremity: Normal Capillary Refill, No Pedal Edema Neurologic/Psychiatric: Alert, Oriented x3, No Motor/Sensory Deficits, Normal Mood/Affect, radiophone operator II-XII Norm as Tested Skin: Normal Color, Other (No evidence for urticaria.) Results Lab Laboratory Tests 10/03/22 20:40 10/04/22 03:30 10/05/22 03:45 Assessment/Plan Assessment/Plan 1 LEAH RAMIREZ MD Oct 05, 2022 11:06
[2022-10-05] MEDS: ENOXAPARIN 40 MG/0.4 ML (LOVENOX) SYR SC SCH (12:08)
[2022-10-05] MEDS: EPINEPHrine 1 MG INJECTION 4 MG in NS (IVPB) 246 ML IV SCH ×2 (12:12→17:35)
[2022-10-05] MEDS: CALCIUM CARBONATE 500 MG (TUMS) TAB.CHEW PO PRN (16:19)
[2022-10-05 20:10] VITALS: BP 130/70
[2022-10-05] MEDS ORDERED: RT-ALBUTEROL SULF 2.5 MG/3 ML PRE-MIX VIAL INH PRN (20:30)
[2022-10-05] MEDS: methylPREDNISolone 125 MG (Solu-MEDROL) VIAL IVP SCH (20:45)
[2022-10-06] MEDS: EPINEPHrine 1 MG INJECTION 4 MG in NS (IVPB) 246 ML IV SCH ×2 (03:12→10:05)
[2022-10-06 04:24] LABS: BASOPHILS % (AUTO) 0 % (0-10); EOSINOPHILS % (AUTO) 0 % (0-10); HEMATOCRIT 33 % (35-52); HEMOGLOBIN 10.9 g/dL (11.5-16.0); LYMPHOCYTES # (AUTO) 0.9 10^3/uL (1.0-4.0); LYMPHOCYTES % (AUTO) 10 % (12-44); MEAN CORPUSCULAR HEMOGLOBIN 29 pg (25-34); MEAN CORPUSCULAR HGB CONC 33 g/dL (32-36); MEAN CORPUSCULAR VOLUME 88 fL (80-99); MEAN PLATELET VOLUME 9.3 fL (9.0-12.2); MONOCYTES # (AUTO) 0.4 10^3/uL (0.0-1.0); MONOCYTES % (AUTO) 4 % (0-12); NEUTROPHILS # (AUTO) 7.3 10^3/uL (1.8-7.8); NEUTROPHILS % (AUTO) 80 % (42-75); PLATELET COUNT 244 10^3/uL (130-400); WHITE BLOOD COUNT 9.2 10^3/uL (4.3-11.0)
[2022-10-06 04:33] LABS: ALBUMIN 3.2 GM/DL (3.2-4.5); POTASSIUM 4.2 MMOL/L (3.6-5.0)
[2022-10-06 04:34] LABS: CALCIUM 8.6 MG/DL (8.5-10.1)
[2022-10-06 04:36] LABS: TOTAL PROTEIN 5.5 GM/DL (6.4-8.2)
[2022-10-06 04:37] LABS: BILIRUBIN,TOTAL 0.3 MG/DL (0.1-1.0)
[2022-10-06 04:39] LABS: CREATININE SERUM 0.85 MG/DL (0.60-1.30); PHOSPHORUS 4.9 MG/DL (2.3-4.7)
[2022-10-06 04:42] LABS: MAGNESIUM 2.1 MG/DL (1.6-2.4)
[2022-10-06] MEDS: MAGNESIUM 1 GM/100 ML IVPB 100 ML IV SCH (05:24)
[2022-10-06] MEDS: KCL 20 MEQ TAB (K-DUR) PO SCH (05:24)
[2022-10-06] MEDS: POTASSIUM CL 10MEQ/50ML IVPB 50 ML IV SCH (05:24)
[2022-10-06 05:31] LABS: SMEAR SCAN COMMENT YES
[2022-10-06] MEDS: methylPREDNISolone 125 MG (Solu-MEDROL) VIAL IVP SCH (06:02)
[2022-10-06] MEDS: diphenhydrAMINE 50 MG/ML INJ (BENADRYL) IVP SCH (06:02)
[2022-10-06] MEDS: MONTELUKAST 10 MG (SINGULAIR) TAB PO SCH (08:14)
[2022-10-06] MEDS: LORATADINE (CLARITIN) 10 MG TAB PO SCH (08:14)
[2022-10-06] MEDS: FAMOTIDINE 20MG/2ML IV (PEPCID) IVP SCH (08:14)
[2022-10-06] MEDS ORDERED: diphenhydrAMINE 25 MG TAB (BENADRYL) PO PRN (09:30)
[2022-10-06] MEDS ORDERED: diphenhydrAMINE 50 MG/ML INJ (BENADRYL) IVP PRN (09:30)
--- NOTE | 2022-10-06 09:34 | Tele-ICU Progress Note ---
Subjective Date Seen by a Provider: Oct 06, 2022 Time Seen by a Provider: 09:34 Subjective/Events-last exam (Tele-ICU Physician , Progress Note ) Service provided via interactive audio and video telecommunications E-CARE system to a patient admitted to ICU bed in [facility]. Patient is seen today due to persistent need of ICU care Available chart/ vitals / labs / Images reviewed Video assessment done using teleICU camera, rest of exam as per RN Discussed with RN Events overnight : Afebrile hemodynamically stable Respiratory - I/O = Drips: Pressors- no (09/30) Admitted with angioedema possibly d/t Myrbetriq (recent dose increase) ON Epinephrine gtt (10/01) Elevated blood sugar (likely due to EPI) sliding scale started (10/03) Attempted EPI wean but did not work. Poison control believes maybe better by Thursday/Thursday due to half life since her dose was increased. (10/05) Epi weaned off A/P Anaphylaxis to presumed myrbetriq 10/04: In discussion with poison control due to the long half-life of Myrbetriq will likely be in her system for another 24 hours - -off epi gtt OFF 10/05 - stbale -changing steroids, pepcid anf benadryl to PO steroid-induced hyperglycemia - as per PCP Tachycardia- with epi effect Obesity Lines : , (Central Line Necessity Reviewed) Montes: OG: Nutrition: Analgesia: Anxiety/ delirium VTE Prophylaxis: cathryn 40 Stress Ulcer Prophylaxis: ppi Plans in collaboration with bedside consultants and IM MDs. Discussed with RN to reach out if any questions or concerns Case and care daily discussed on multidisciplinary rounds ( RN, PharmD, Salvage Grinder , Respiratory Therapy, supervisor fur floor worker ) A total of 15 minutes of critical care time was devoted to this patient today, required to treat and/or prevent further deterioration of critical care condition ( as above ) . I am remotely monitoring this patient from another state. I am unable to do the bedside exam, and history/physical and pertinent information is taken from other notes in the computer and bedside staff. Sepsis Event Evaluation Height, Weight, BMI Height: '" Weight: lbs. oz. kg; 37.38 BMI Method: Focused Exam Lactate Level 10/04/22 00:34: Lactic Acid Level 5.97*H 10/04/22 03:30: Lactic Acid Level 3.56*H 10/04/22 06:25: Lactic Acid Level 2.45*H Exam Exam Patient acknowledged, consented, and participated in this virtual visit which was conducted using real time audio/video Vital Signs Date Time Temp Pulse Resp B/P (MAP) Pulse Ox O2 Delivery O2 Flow Rate FiO2 10/06/22 09:00 62 20 138/87 (104) 92 Room Air 10/06/22 08:00 99 Room Air 10/06/22 08:00 62 17 151/89 (109) 91 Room Air 10/06/22 07:42 36.1 10/06/22 07:00 62 24 124/75 (91) 93 Room Air 10/06/22 07:00 62 10/06/22 06:00 67 17 133/74 (89) 92 Room Air 10/06/22 05:00 65 19 125/73 (94) 91 Room Air 10/06/22 04:00 68 21 139/91 (107) 93 Room Air 10/06/22 04:00 96 Room Air 10/06/22 03:45 130 10/06/22 03:13 36.4 Room Air 10/06/22 03:00 65 18 139/81 (100) 91 Room Air 10/06/22 02:00 74 23 127/75 (96) 92 Room Air 10/06/22 01:00 63 10/06/22 01:00 63 17 122/73 (89) 93 Room Air 10/06/22 00:00 67 20 127/75 (92) 91 Room Air 10/05/22 23:48 98 Room Air 10/05/22 23:39 36.5 Room Air 10/05/22 23:00 68 21 135/76 (95) 92 Room Air 10/05/22 22:51 Room Air 10/05/22 22:00 69 19 137/73 (88) 91 Room Air 10/05/22 21:00 93 19 121/71 (85) 94 Room Air 10/05/22 20:10 36.1 80 99 21 10/05/22 20:09 87 18 123/72 (91) 98 Room Air 10/05/22 20:08 99 Room Air 10/05/22 20:00 36.1 10/05/22 20:00 99 Room Air 10/05/22 19:15 82 19 130/77 (99) 97 Room Air 10/05/22 19:00 Room Air 10/05/22 19:00 77 10/05/22 18:00 76 24 94 Room Air 10/05/22 17:00 81 24 94 Room Air 10/05/22 16:20 97 Room Air 10/05/22 16:00 36.1 10/05/22 16:00 83 18 94 Room Air 10/05/22 15:05 97 Room Air 10/05/22 15:00 69 20 138/85 (102) 92 Room Air 10/05/22 14:00 75 21 93 Room Air 10/05/22 13:00 76 20 93 Room Air 10/05/22 13:00 81 10/05/22 12:36 98 Room Air 10/05/22 12:00 80 19 93 Room Air 10/05/22 11:00 78 21 137/75 (99) 90 Room Air 10/05/22 10:00 77 18 141/82 (101) 92 Room Air I & O 10/06/22 07:00 Intake Total 2175 ml Output Total 3600 ml Balance -1425 ml Height & Weight Height: '" Weight: lbs. oz. kg; 37.38 BMI Method: General Appearance: No Apparent Distress, WD/WN HEENT: PERRL/EOMI, Pharynx Normal, Moist Mucous Membranes, Other (PT HAS MILD SWELLING TO PERIORBITAL AREA AND BRIDGE OF NOSE. SHE ALSO HAS MILD SWELLING TO BOTH UPPER AND LOWER LIPS. NO INTRA-ORAL SWELLING. VOICE IS SLIGHTLY HOARSE. ) Neck: Full Range of Motion, Normal Inspection, Non Tender, Supple Respiratory: Chest Non Tender, Lungs Clear, Normal Breath Sounds, No Accessory Muscle Use, No Respiratory Distress Cardiovascular: Regular Rate, Rhythm, No Edema, No Gallop, No JVD, No Murmur, Normal Peripheral Pulses Capillary Refill: Less Than 3 Seconds Peripheral Pulses: 2+ Radial Pulses (R) Gastrointestinal: normal bowel sounds, non tender, soft Extremity: Normal Capillary Refill, No Pedal Edema Neurologic/Psychiatric: Alert, Oriented x3, No Motor/Sensory Deficits, Normal Mood/Affect, supervisor beehive kiln II-XII Norm as Tested Skin: Normal Color, Other (No evidence for urticaria.) Results Lab Laboratory Tests 10/05/22 03:45 10/06/22 04:10 Assessment/Plan Assessment/Plan 1 LEAH RAMIREZ MD Oct 06, 2022 09:34
[2022-10-06] MEDS: ENOXAPARIN 40 MG/0.4 ML (LOVENOX) SYR SC SCH (10:00)
[2022-10-06] MEDS ORDERED: FAMO20TA5 PO (10:59)
[2022-10-06] MEDS ORDERED: PRED10TA22 PO (10:59)
[2022-10-06] MEDS ORDERED: MONT-40 PO (10:59)
--- NOTE | 2022-10-06 10:59 | Discharge Summary ---
Diagnosis/Chief Complaint Date of Admission Sep 30, 2022 at 11:23 Date of Discharge Discharge Date: Oct 06, 2022 Discharge Diagnosis Anaphylaxis to Myrbetriq Hyperglycemia due to steroids Presumed OMAR Presumed early DM Discharge Summary Discharge Physical Examination Allergies: Coded Allergies: [email or web address] (Verified Allergy, Severe, Angioedema, 10/06/22) Vitals & I&Os Vital Signs Date Time Temp Pulse Resp B/P (MAP) Pulse Ox O2 Delivery O2 Flow Rate FiO2 10/06/22 11:40 10/06/22 10:00 68 18 95 Room Air 10/06/22 07:42 36.1 10/05/22 20:10 21 10/04/22 11:47 1.00 General Appearance: Alert, Oriented X3, Cooperative Respiratory: Clear to Auscultation Cardiovascular: Regular Rate Psych/Mental Status: Mental Status NL Hospital Course Was the Problem List Reviewed?: Yes Hospital Course: This is a 46 y/o female who presented to the ED on 09/30/22 with complaints of increasing SOB, difficulty breathing, and hives. She had previously been seen in the ED the weekend prior for similar, but more mild symptoms and had been DC'd after improvement. On history, the only recent change to patient's routine was an increase in mybetriq from 25mg to 50mg recently. At initial visit, it was not thought that the mybetriq change was the cause of the reaction but possibly alpha gal. When the patient took her next dose of mybetriq she noted acute worsening of hives and respiratory symptoms at home. The patient was admitted to the ICU for anaphylaxis with persistent chest tightening and SOB. She was started and maintained on an epi drip due to persistent symptoms and took several days of weaning before becoming fully asymptomatic and independent of epi drip. She last received epi on 10/04. She progressed through the weekend maintaining with IV steroids and anti-histamines and PRN breathing treatments. On 10/06 she was feeling completely back to baseline, had no remaining hives, and no remaining respiratory symptoms and felt comfortable to DC to home. Labs (last 24 hrs) Laboratory Tests 09/30/22 05:20: White Blood Count 11.8H, Red Blood Count 4.99, Hemoglobin 14.3, Hematocrit 44, Mean Corpuscular Volume 89, Mean Corpuscular Hemoglobin 29, Mean Corpuscular Hemoglobin Concent 32, Red Cell Distribution Width 12.8, Platelet Count 323, Mean Platelet Volume 9.4, Immature Granulocyte % (Auto) 0, Neutrophils (%) (Auto) 86H, Lymphocytes (%) (Auto) 11L, Monocytes (%) (Auto) 2, Eosinophils (%) (Auto) 0, Basophils (%) (Auto) 0, Neutrophils # (Auto) 10.2H, Lymphocytes # (Auto) 1.3, Monocytes # (Auto) 0.2, Eosinophils # (Auto) 0.0, Basophils # (Auto) 0.0, Immature Granulocyte # (Auto) 0.0, Neutrophils % (Manual) 74, Lymphocytes % (Manual) 14, Monocytes % (Manual) 3, Band Neutrophils 9, Blood Morphology Comment NORMAL, Erythrocyte Sedimentation Rate 15, Reference Lab Test Interpretation See Footnote, Sodium Level 143, Potassium Level 3.0L, Chloride [place] 108H, Carbon Dioxide Level 20L, Anion Gap 15H, Blood Urea Nitrogen 19H, Creatinine 0.95, Estimat Glomerular Filtration Rate 74, BUN/Creatinine Ratio 20, Glucose Level 187H, Calcium Level 9.3, Corrected Calcium 9.1, Total Bilirubin 0.3, Aspartate Amino Transf (AST/SGOT) 11, Alanine Aminotransferase (ALT/SGPT) 14, Alkaline Phosphatase 79, C-Reactive Protein High Sensitivity 6.20H, Total Protein 7.5, Albumin 4.3, Immunoglobulin E 313.2, C1 Esterase Inhibitor 38, Complement C4 49.4H 10/01/22 03:36: White Blood Count 19.4H, Red Blood Count 3.88, Hemoglobin 11.3#L, Hematocrit 35, Mean Corpuscular Volume 90, Mean Corpuscular Hemoglobin 29, Mean Corpuscular Hemoglobin Concent 33, Red Cell Distribution Width 13.6, Platelet Count 358, Mean Platelet Volume 9.6, Immature Granulocyte % (Auto) 1, Neutrophils (%) (Auto) 90H, Lymphocytes (%) (Auto) 7L, Monocytes (%) (Auto) 2, Eosinophils (%) (Auto) 0, Basophils (%) (Auto) 0, Neutrophils # (Auto) 17.5H, Lymphocytes # (Auto) 1.4, Monocytes # (Auto) 0.4, Eosinophils # (Auto) 0.0, Basophils # (Auto) 0.0, Immature Granulocyte # (Auto) 0.1, Sodium Level 140, Potassium Level 3.7, Chloride Level 114H, Carbon Dioxide Level 14L, Anion Gap 12, Blood Urea Nitrogen 14, Creatinine 0.89, Estimat Glomerular Filtration Rate 80, BUN/Creatinine Ratio 16, Glucose Level 420*H, Calcium Level 8.9, Corrected Calcium 9.1, Total Bilirubin 0.3, Aspartate Amino Transf (AST/SGOT) 14, Alanine Aminotransferase (ALT/SGPT) 20, Alkaline Phosphatase 65, Total Protein 6.1L, Albumin 3.7, Mean Blood Glucose 108, Hemoglobin A1c 5.4, Phosphorus Level 1.3L, Magnesium Level 1.7 10/01/22 04:26: Glucometer 412*H 10/01/22 10:09: Glucometer 390H 10/01/22 16:16: Glucometer 288H 10/01/22 21:19: Glucometer 265H 10/02/22 04:50: Glucometer 271H 10/02/22 05:21: White Blood Count 30.8*H, Red Blood Count 4.26, Hemoglobin 12.4, Hematocrit 37, Mean Corpuscular Volume 88, Mean Corpuscular Hemoglobin 29, Mean Corpuscular Hemoglobin Concent 33, Red Cell Distribution Width 14.1, Platelet Count 374, Mean Platelet Volume 9.2, Immature Granulocyte % (Auto) 1, Neutrophils (%) (Auto) 89H, Lymphocytes (%) (Auto) 6L, Monocytes (%) (Auto) 4, Eosinophils (%) (Auto) 0, Basophils (%) (Auto) 0, Neutrophils # (Auto) 27.5H, Lymphocytes # (Auto) 1.7, Monocytes # (Auto) 1.1H, Eosinophils # (Auto) 0.0, Basophils # (Auto) 0.1, Immature Granulocyte # (Auto) 0.3H, Neutrophils % (Manual) 93, Lymphocytes % (Manual) 3, Monocytes % (Manual) 4, Blood Morphology Comment NORMAL, Sodium Level 144, Potassium Level 3.8, Chloride Level 115H, Carbon Dioxide Level 16L, Anion Gap 13, Blood Urea Nitrogen 17, Creatinine 0.81, Estimat Glomerular Filtration Rate 90, BUN/Creatinine Ratio 21, Glucose Level 272H, Calcium Level 8.4L, Corrected Calcium 8.9, Phosphorus Level 1.1L, Magnesium Level 2.0, Total Bilirubin 0.3, Aspartate Amino Transf (AST/SGOT) 15, Alanine Aminotransferase (ALT/SGPT) 13, Alkaline Phosphatase 73, Total Protein 6.1L, Albumin 3.4 10/02/22 11:57: Glucometer 235H 10/02/22 18:28: Glucometer 291H 10/02/22 20:20: Glucometer 299H 10/03/22 02:05: White Blood Count 24.3H, Red Blood Count 4.13, Hemoglobin 12.0, Hematocrit 36, Mean Corpuscular Volume 87, Mean Corpuscular Hemoglobin 29, Mean Corpuscular Hemoglobin Concent 33, Red Cell Distribution Width 13.9, Platelet Count 352, Mean Platelet Volume 9.4, Immature Granulocyte % (Auto) 3, Neutrophils (%) (Au to) 86H, Lymphocytes (%) (Auto) 8L, Monocytes (%) (Auto) 3, Eosinophils (%) (Auto) 0, Basophils (%) (Auto) 0, Neutrophils # (Auto) 20.8H, Lymphocytes # (Auto) 2.0, Monocytes # (Auto) 0.8, Eosinophils # (Auto) 0.0, Basophils # (Auto) 0.1, Immature Granulocyte # (Auto) 0.6H, Sodium Level 143, Potassium Level 4.2, Chloride Level 113H, Carbon Dioxide Level 18L, Anion Gap 12, Blood Urea Nitrogen 19H, Creatinine 0.85, Estimat Glomerular Filtration Rate 85, BUN/Creatinine Ratio 22, Glucose Level 193H, Calcium Level 8.6, Corrected Calcium 9.1, Phosphorus Level 1.8L, Magnesium Level 2.0, Total Bilirubin 0.3, Aspartate Amino Transf (AST/SGOT) 13, Alanine Aminotransferase (ALT/SGPT) 21, Alkaline Phosphatase 72, Total Protein 6.1L, Albumin 3.4 10/03/22 10:20: Glucometer 212H 10/03/22 16:54: Glucometer 419*H 10/03/22 19:56: Glucometer 494*H 10/03/22 20:05: 10/03/22 20:40: White Blood Count 18.9H, Red Blood Count 4.19, Hemoglobin 12.2, Hematocrit 37, Mean Corpuscular Volume 88, Mean Corpuscular Hemoglobin 29, Mean Corpuscular Hemoglobin Concent 33, Red Cell Distribution Width 13.9, Platelet Count 391, Mean Platelet Volume 9.7, Immature Granulocyte % (Auto) 5, Neutrophils (%) (Auto) 83H, Lymphocytes (%) (Auto) 7L, Monocytes (%) (Auto) 4, Eosinophils (%) (Auto) 0, Basophils (%) (Auto) 0, Neutrophils # (Auto) 15.7H, Lymphocytes # (Auto) 1.3, Monocytes # (Auto) 0.8, Eosinophils # (Auto) 0.0, Basophils # (Auto) 0.1, Immature Granulocyte # (Auto) 1.0H, Sodium Level 140, Potassium Level 3.9, Chloride Level 107, Carbon Dioxide Level 13L, Anion Gap 20H, Blood Urea Nitrogen 19H, Creatinine 1.28, Estimat Glomerular Filtration Rate 52, BUN/Creatinine Ratio 15, Glucose Level 556*H, Lactic Acid Level 6.95*H, Calcium Level 9.0, Phosphorus Level 1.3L, Magnesium Level 1.9, Beta-Hydroxybutyrate (Chem panel) 0.27 10/03/22 21:27: Glucometer 439*H 10/03/22 21:51: Urine Color YELLOW, Urine Clarity CLEAR, Urine pH 6.0, Urine Specific [place] 1.010L, Urine Protein NEGATIVE, Urine Glucose (UA) 3+H, Urine Ketones NEGATIVE, Urine Nitrite NEGATIVE, Urine Bilirubin NEGATIVE, Urine Urobilinogen 0.2, Urine Leukocyte Esterase NEGATIVE, Urine RBC (Auto) NEGATIVE, Urine RBC NONE, Urine WBC NONE, Urine Squamous Epithelial Cells 0-2, Urine Crystals PRESENTH, Urine Amorphous Sediment FEW CADENCE URATESH, Urine Bacteria TRACE, Urine Casts NONE, Urine Mucus NEGATIVE, Urine Culture Indicated NO, Urine Opiates Screen NEGATIVE, Urine Oxycodone Screen NEGATIVE, Urine Methadone Screen NEGATIVE, Urine Propoxyphene Screen NEGATIVE, Urine Barbiturates Screen NEGATIVE, Ur Tricyclic Antidepressants Screen NEGATIVE, Urine Phencyclidine Screen NEGATIVE, Urine Amphetamines Screen NEGATIVE, Urine Methamphetamines Screen NEGATIVE, Urine Benzodiazepines Screen NEGATIVE, Urine Cocaine Screen NEGATIVE, Urine Cannabinoids Screen NEGATIVE 10/03/22 23:00: Glucometer 377H 10/03/22 23:05: Lactic Acid Level 5.11*H 10/04/22 00:34: Lactic Acid Level 5.97*H, Troponin I 0.035H 10/04/22 03:30: Lactic Acid Level 3.56*H, White Blood Count 18.4H, Red Blood Count 4.14, Hemoglobin 12.0, Hematocrit 36, Mean Corpuscular Volume 87, Mean Corpuscular Hemoglobin 29, Mean Corpuscular Hemoglobin Concent 33, Red Cell Distribution Width 13.9, Platelet Count 375, Mean Platelet Volume 9.4, Immature Granulocyte % (Auto) 6, Neutrophils (%) (Auto) 81H, Lymphocytes (%) (Auto) 8L, Monocytes (%) (Auto) 5, Eosinophils (%) (Auto) 0, Basophils (%) (Auto) 0, Neutrophils # (Auto) 14.9H, Lymphocytes # (Auto) 1.4, Monocytes # (Auto) 0.9, Eosinophils # (Auto) 0.0, Basophils # (Auto) 0.1, Immature Granulocyte # (Auto) 1.1H, Sodium Level 144, Potassium Level 3.8, Chloride Level 111H, Carbon Dioxide Level 18L, Anion Gap 15H, Blood Urea Nitrogen 16, Creatinine 0.89, Estimat Glomerular Filtration Rate 80, BUN/Creatinine Ratio 18, Glucose Level 266H, Calcium Level 9.1, Corrected Calcium 9.5, Phosphorus Level 2.3, Magnesium Level 1.9, Total Bilirubin 0.4, Aspartate Amino Transf (AST/SGOT) 16, Alanine Aminotransferase (ALT/SGPT) 23, Alkaline Phosphatase 71, B-Type Natriuretic Peptide 298.6H, Total Protein 6.4, Albumin 3.5 10/04/22 06:25: Lactic Acid Level 2.45*H 10/04/22 10:37: Glucometer 228H 10/04/22 16:17: Glucometer 260H 10/04/22 20:38: Glucometer 182H 10/04/22 21:51: Glucometer 144H 10/05/22 03:45: White Blood Count 13.2H, Red Blood Count 3.92, Hemoglobin 11.3L, Hematocrit 35, Mean Corpuscular Volume 88, Mean Corpuscular Hemoglobin 29, Mean Corpuscular Hemoglobin Concent 33, Red Cell Distribution Width 13.8, Platelet Count 266, Mean Platelet Volume 9.5, Immature Granulocyte % (Auto) 6, Neutrophils (%) (Auto) 79H, Lymphocytes (%) (Auto) 11L, Monocytes (%) (Auto) 4, Eosinophils (%) (Auto) 0, Basophils (%) (Auto) 0, Neutrophils # (Auto) 10.4H, Lymphocytes # (Auto) 1.4, Monocytes # (Auto) 0.6, Eosinophils # (Auto) 0.0, Basophils # (Auto) 0.0, Immature Granulocyte # (Auto) 0.8H, Sodium Level 142, Potassium Level 4.4, Chloride Level 111H, Carbon Dioxide Level 21, Anion Gap 10, Blood Urea Nitrogen 21H, Creatinine 0.85, Estimat Glomerular Filtration Rate 85, BUN/Creatinine Ratio 25, Glucose Level 181H, Calcium Level 8.9, Corrected Calcium 9.5, Phosphorus Level 3.5, Magnesium Level 2.2, Total Bilirubin 0.3, Aspartate Amino Transf (AST/SGOT) 13, Alanine Aminotransferase (ALT/SGPT) 28, Alkaline Phosphatase 56, Total Protein 5.8L, Albumin 3.3, Smear Scan YES 10/05/22 05:34: Glucometer 169H 10/05/22 12:14: Glucometer 195H 10/05/22 16:08: Glucometer 194H 10/05/22 20:27: Glucometer 200H 10/06/22 04:10: White Blood Count 9.2, Red Blood Count 3.74L, Hemoglobin 10.9L, Hematocrit 33L, Mean Corpuscular Volume 88, Mean Corpuscular Hemoglobin 29, Mean Corpuscular Hemoglobin Concent 33, Red Cell Distribution Width 13.0, Platelet Count 244, Mean Platelet Volume 9.3, Immature Granulocyte % (Auto) 6, Neutrophils (%) (Auto) 80H, Lymphocytes (%) (Auto) 10L, Monocytes (%) (Auto) 4, Eosinophils (%) (Auto) 0, Basophils (%) (Auto) 0, Neutrophils # (Auto) 7.3, Lymphocytes # (Auto) 0.9L, Monocytes # (Auto) 0.4, Eosinophils # (Auto) 0.0, Basophils # (Auto) 0.0, Immature Granulocyte # (Auto) 0.5H, Sodium Level 139, Potassium Level 4.2, Chloride Level 109H, Carbon Dioxide Level 19L, Anion Gap 11, Blood Urea Nitrogen 28H, Creatinine 0.85, Estimat Glomerular Filtration Rate 85, BUN/Creatinine Ratio 33, Glucose Level 175H, Calcium Level 8.6, Corrected Calcium 9.2, Phosphorus Level 4.9H, Magnesium Level 2.1, Total Bilirubin 0.3, Aspartate Amino Transf (AST/SGOT) 10, Alanine Aminotransferase (ALT/SGPT) 24, Alkaline Phosphatase 47, Total Protein 5.5L, Albumin 3.2, Smear Scan YES Microbiology 10/04/22 Blood Culture - Preliminary, Resulted No growth 09/30/22 MRSA Screen - Final, Complete MRSA not isolated Pending Labs Microbiology Date/Time Source Procedure Growth Status 10/04/22 04:14 Peripheral Rt Ac Blood Culture - Preliminary No growth Resulted 10/04/22 04:10 Peripheral Rt Ac Blood Culture - Preliminary No growth Resulted 09/30/22 11:55 Nasal MRSA Screen - Final MRSA not isolated Complete Laboratory Tests 09/30/22 05:20: White Blood Count 11.8, Red Blood Count 4.99, Hemoglobin 14.3, Hematocrit 44, Mean Corpuscular Volume 89, Mean Corpuscular Hemoglobin 29, Mean Corpuscular Hemoglobin Concent 32, Red Cell Distribution Width 12.8, Platelet Count 323, Mean Platelet Volume 9.4, Immature Granulocyte % (Auto) 0, Neutrophils (%) (Auto) 86, Lymphocytes (%) (Auto) 11, Monocytes (%) (Auto) 2, Eosinophils (%) (Auto) 0, Basophils (%) (Auto) 0, Neutrophils # (Auto) 10.2, Lymphocytes # (Auto) 1.3, Monocytes # (Auto) 0.2, Eosinophils # (Auto) 0.0, Basophils # (Auto) 0.0, Immature Granulocyte # (Auto) 0.0, Neutrophils % (Manual) 74, Lymphocytes % (Manual) 14, Monocytes % (Manual) 3, Band Neutrophils 9, Blood Morphology Com ment NORMAL, Erythrocyte Sedimentation Rate 15, Reference Lab Test Interpretation See Footnote, Sodium Level 143, Potassium Level 3.0, Chloride Level 108, Carbon Dioxide Level 20, Anion Gap 15, Blood Urea Nitrogen 19, Creatinine 0.95, Estimat Glomerular Filtration Rate 74, BUN/Creatinine Ratio 20, Glucose Level 187, Calcium Level 9.3, Corrected Calcium 9.1, Total Bilirubin 0.3, Aspartate Amino Transf (AST/SGOT) 11, Alanine Aminotransferase (ALT/SGPT) 14, Alkaline Phosphatase 79, C-Reactive Protein High Sensitivity 6.20, Total Protein 7.5, Albumin 4.3, Immunoglobulin E 313.2, C1 Esterase Inhibitor 38, Complement C4 49.4 10/01/22 03:36: White Blood Count 19.4, Red Blood Count 3.88, Hemoglobin 11.3, Hematocrit 35, Mean Corpuscular Volume 90, Mean Corpuscular Hemoglobin 29, Mean Corpuscular Hemoglobin Concent 33, Red Cell Distribution Width 13.6, Platelet Count 358, Mean Platelet Volume 9.6, Immature Granulocyte % (Auto) 1, Neutrophils (%) (Auto) 90, Lymphocytes (%) (Auto) 7, Monocytes (%) (Auto) 2, Eosinophils (%) (Auto) 0, Basophils (%) (Auto) 0, Neutrophils # (Auto) 17.5, Lymphocytes # (Auto) 1.4, Monocytes # (Auto) 0.4, Eosinophils # (Auto) 0.0, Basophils # (Auto) 0.0, Immature Granulocyte # (Auto) 0.1, Sodium Level 140, Potassium Level 3.7, Chloride Level 114, Carbon Dioxide Level 14, Anion Gap 12, Blood Urea Nitrogen 14, Creatinine 0.89, Estimat Glomerular Filtration Rate 80, BUN/Creatinine Ratio 16, Glucose Level 420, Calcium Level 8.9, Corrected Calcium 9.1, Total Bilirubin 0.3, Aspartate Amino Transf (AST/SGOT) 14, Alanine Aminotransferase (ALT/SGPT) 20, Alkaline Phosphatase 65, Total Protein 6.1, Albumin 3.7, Mean Blood Glucose 108, Hemoglobin A1c 5.4, Phosphorus Level 1.3, Magnesium Level 1.7 10/01/22 04:26: Glucometer 412 10/01/22 10:09: Glucometer 390 10/01/22 16:16: Glucometer 288 10/01/22 21:19: Glucometer 265 10/02/22 04:50: Glucometer 271 10/02/22 05:21: White Blood Count 30.8, Red Blood Count 4.26, Hemoglobin 12.4, Hematocrit 37, Mean Corpuscular Volume 88, Mean Corpuscular Hemoglobin 29, Mean Corpuscular Hemoglobin Concent 33, Red Cell Distribution Width 14.1, Platelet Count 374, Mean Platelet Volume 9.2, Immature Granulocyte % (Auto) 1, Neutrophils (%) (Auto) 89, Lymphocytes (%) (Auto) 6, Monocytes (%) (Auto) 4, Eosinophils (%) (Auto) 0, Basophils (%) (Auto) 0, Neutrophils # (Auto) 27.5, Lymphocytes # (Auto) 1.7, Monocytes # (Auto) 1.1, Eosinophils # (Auto) 0.0, Basophils # (Auto) 0.1, Immature Granulocyte # (Auto) 0.3, Neutrophils % (Manual) 93, Lymphocytes % (Manual) 3, Monocytes % (Manual) 4, Blood Morphology Comment NORMAL, Sodium Level 144, Potassium Level 3.8, Chloride Level 115, Carbon Dioxide Level 16, Anion Gap 13, Blood Urea Nitrogen 17, Creatinine 0.81, Estimat Glomerular Filtration Rate 90, BUN/Creatinine Ratio 21, Glucose Level 272, Calcium Level 8.4, Corrected Calcium 8.9, Phosphorus Level 1.1, Magnesium Level 2.0, Total Bilirubin 0.3, Aspartate Amino Transf (AST/SGOT) 15, Alanine Aminotransferase (ALT/SGPT) 13, Alkaline Phosphatase 73, Total Protein 6.1, Albumin 3.4 10/02/22 11:57: Glucometer 235 10/02/22 18:28: Glucometer 291 10/02/22 20:20: Glucometer 299 10/03/22 02:05: White Blood Count 24.3, Red Blood Count 4.13, Hemoglobin 12.0, Hematocrit 36, Mean Corpuscular Volume 87, Mean Corpuscular Hemoglobin 29, Mean Corpuscular Hemoglobin Concent 33, Red Cell Distribution Width 13.9, Platelet Count 352, Mean Platelet Volume 9.4, Immature Granulocyte % (Auto) 3, Neutrophils (%) (Auto) 86, Lymphocytes (%) (Auto) 8, Monocytes (%) (Auto) 3, Eosinophils (%) (Auto) 0, Basophils (%) (Auto) 0, Neutrophils # (Auto) 20.8, Lymphocytes # (Auto) 2.0, Monocytes # (Auto) 0.8, Eosinophils # (Auto) 0.0, Basophils # (Auto) 0.1, Immature Granulocyte # (Auto) 0.6, Sodium Level 143, Potassium Level 4.2, Chloride Level 113, Carbon Dioxide Level 18, Anion Gap 12, Blood Urea Nitrogen 19, Creatinine 0.85, Estimat Glomerular Filtration Rate 85, BUN/Creatinine Ratio 22, Glucose Level 193, Calcium Level 8.6, Corrected Calcium 9.1, Phosphorus Level 1.8, Magnesium Level 2.0, Total Bilirubin 0.3, Aspartate Amino Transf (AST/SGOT) 13, Alanine Aminotransferase (ALT/SGPT) 21, Alkaline Phosphatase 72, Total Protein 6.1, Albumin 3.4 10/03/22 10:20: Glucometer 212 10/03/22 16:54: Glucometer 419 10/03/22 19:56: Glucometer 494 10/03/22 20:05: Tryptase [Pending] 10/03/22 20:40: White Blood Count 18.9, Red Blood Count 4.19, Hemoglobin 12.2, Hematocrit 37, Mean Corpuscular Volume 88, Mean Corpuscular Hemoglobin 29, Mean Corpuscular Hemoglobin Concent 33, Red Cell Distribution Width 13.9, Platelet Count 391, Mean Platelet Volume 9.7, Immature Granulocyte % (Auto) 5, Neutrophils (%) (Auto) 83, Lymphocytes (%) (Auto) 7, Monocytes (%) (Auto) 4, Eosinophils (%) (Auto) 0, Basophils (%) (Auto) 0, Neutrophils # (Auto) 15.7, Lymphocytes # (Auto) 1.3, Monocytes # (Auto) 0.8, Eosinophils # (Auto) 0.0, Basophils # (Auto) 0.1, Immature Granulocyte # (Auto) 1.0, Sodium Level 140, Potassium Level 3.9, Chloride Level 107, Carbon Dioxide Level 13, Anion Gap 20, Blood Urea Nitrogen 19, Creatinine 1.28, Estimat Glomerular Filtration Rate 52, BUN/Creatinine Ratio 15, Glucose Level 556, Lactic Acid Level 6.95, Calcium Level 9.0, Phosphorus Level 1.3, Magnesium Level 1.9, Beta-Hydroxybutyrate (Chem panel) 0.27 10/03/22 21:27: Glucometer 439 10/03/22 21:51: Urine Color YELLOW, Urine Clarity CLEAR, Urine pH 6.0, Urine Specific [place] 1.010, Urine Protein NEGATIVE, Urine Glucose (UA) 3+, Urine Ketones NEGATIVE, Urine Nitrite NEGATIVE, Urine Bilirubin NEGATIVE, Urine Urobilinogen 0.2, Urine Leukocyte Esterase NEGATIVE, Urine RBC (Auto) NEGATIVE, Urine RBC NONE, Urine WBC NONE, Urine Squamous Epithelial Cells 0-2, Urine Crystals PRESENT, Urine Amorphous Sediment FEW CADENCE URATES, Urine Bacteria TRACE, Urine Casts NONE, Urine Mucus NEGATIVE, Urine Culture Indicated NO, Urine Opiates Screen NEGATIVE, Urine Oxycodone Screen NEGATIVE, Urine Methadone Screen NEGATIVE, Urine Propoxyphene Screen NEGATIVE, Urine Barbiturates Screen NEGATIVE, Ur Tricyclic Antidepressants Screen NEGATIVE, Urine Phencyclidine Screen NEGATIVE, Urine Amphetamines Screen NEGATIVE, Urine Methamphetamines Screen NEGATIVE, Urine Benzodiazepines Screen NEGATIVE, Urine Cocaine Screen NEGATIVE, Urine Cannabinoids Screen NEGATIVE 10/03/22 23:00: Glucometer 377 10/03/22 23:05: Lactic Acid Level 5.11 10/04/22 00:34: Lactic Acid Level 5.97, Troponin I 0.035 10/04/22 03:30: Lactic Acid Level 3.56, White Blood Count 18.4, Red Blood Count 4.14, Hemoglobin 12.0, Hematocrit 36, Mean Corpuscular Volume 87, Mean Corpuscular Hemoglobin 29, Mean Corpuscular Hemoglobin Concent 33, Red Cell Distribution Width 13.9, Platelet Count 375, Mean Platelet Volume 9.4, Immature Granulocyte % (Auto) 6, Neutrophils (%) (Auto) 81, Lymphocytes (%) (Auto) 8, Monocytes (%) (Auto) 5, Eosinophils (%) (Auto) 0, Basophils (%) (Auto) 0, Neutrophils # (Auto) 14.9, Lymphocytes # (Auto) 1.4, Monocytes # (Auto) 0.9, Eosinophils # (Auto) 0.0, Basophils # (Auto) 0.1, Immature Granulocyte # (Auto) 1.1, Sodium Level 144, Potassium Level 3.8, Chloride Level 111, Carbon Dioxide Level 18, Anion Gap 15, Blood Urea Nitrogen 16, Creatinine 0.89, Estimat Glomerular Filtration Rate 80, BUN/Creatinine Ratio 18, Glucose Level 266, Calcium Level 9.1, Corrected Calcium 9.5, Phosphorus Level 2.3, Magnesium Level 1.9, Total Bilirubin 0.4, Aspartate Amino Transf (AST/SGOT) 16, Alanine Aminotransferase (ALT/SGPT) 23, Alkaline Phosphatase 71, B-Type Natriuretic Peptide 298.6, Total Protein 6.4, Albumin 3.5 10/04/22 06:25: Lactic Acid Level 2.45 10/04/22 10:37: Glucometer 228 10/04/22 16:17: Glucometer 260 10/04/22 20:38: Glucometer 182 10/04/22 21:51: Glucometer 144 10/05/22 03:45: White Blood Count 13.2, Red Blood Count 3.92, Hemoglobin 11.3, Hematocrit 35, Mean Corpuscular Volume 88, Mean Corpuscular Hemoglobin 29, Mean Corpuscular Hemoglobin Concent 33, Red Cell Distribution Width 13.8, Platelet Count 266, Mean Platelet Volume 9.5, Immature Granulocyte % (Auto) 6, Neutrophils (%) (Auto) 79, Lymphocytes (%) (Auto) 11, Monocytes (%) (Auto) 4, Eosinophils (%) (Auto) 0, Basophils (%) (Auto) 0, Neutrophils # (Auto) 10.4, Lymphocytes # (Auto) 1.4, Monocytes # (Auto) 0.6, Eosinophils # (Auto) 0.0, Basophils # (Auto) 0.0, Immature Granulocyte # (Auto) 0.8, Sodium Level 142, Potassium Level 4.4, Chloride Level 111, Carbon Dioxide Level 21, Anion Gap 10, Blood Urea Nitrogen 21, Creatinine 0.85, Estimat Glomerular Filtration Rate 85, BUN/Creatinine Ratio 25, Glucose Level 181, Calcium Level 8.9, Corrected Calcium 9.5, Phosphorus Level 3.5, Magnesium Level 2.2, Total Bilirubin 0.3, Aspartate Amino Transf (AST/SGOT) 13, Alanine Aminotransferase (ALT/SGPT) 28, Alkaline Phosphatase 56, Total Protein 5.8, Albumin 3.3, Smear Scan YES 10/05/22 05:34: Glucometer 169 10/05/22 12:14: Glucometer 195 10/05/22 16:08: Glucometer 194 10/05/22 20:27: Glucometer 200 10/06/22 04:10: White Blood Count 9.2, Red Blood Count 3.74, Hemoglobin 10.9, Hematocrit 33, Mean Corpuscular Volume 88, Mean Corpuscular Hemoglobin 29, Mean Corpuscular Hemoglobin Concent 33, Red Cell Distribution Width 13.0, Platelet Count 244, Mean Platelet Volume 9.3, Immature Granulocyte % (Auto) 6, Neutrophils (%) (Auto) 80, Lymphocytes (%) (Auto) 10, Monocytes (%) (Auto) 4, Eosinophils (%) (Auto) 0, Basophils (%) (Auto) 0, Neutrophils # (Auto) 7.3, Lymphocytes # (Auto) 0.9, Monocytes # (Auto) 0.4, Eosinophils # (Auto) 0.0, Basophils # (Auto) 0.0, Immature Granulocyte # (Auto) 0.5, Sodium Level 139, Potassium Level 4.2, Chloride Level 109, Carbon Dioxide Level 19, Anion Gap 11, Blood Urea Nitrogen 28, Creatinine 0.85, Estimat Glomerular Filtration Rate 85, BUN/Creatinine Ratio 33, Glucose Level 175, Calcium Level 8.6, Corrected Calcium 9.2, Phosphorus Level 4.9, Magnesium Level 2.1, Total Bilirubin 0.3, Aspartate Amino Transf (AST/SGOT) 10, Alanine Aminotransferase (ALT/SGPT) 24, Alkaline Phosphatase 47, Total Protein 5.5, Albumin 3.2, Smear Scan YES Discharge Home Medications: Active Scripts Active Prednisone 10 Mg Tab.ds.pk 10 Mg PO DAILY Take 6 tabs(60mg)daily,decrease by 1 tab(10mg)every other day. Famotidine 20 Mg Tablet 20 Mg PO BID Montelukast Sodium 10 Mg Tablet 10 Mg PO DAILY@0900 Reported Epinephrine 0.3 Mg/0.3 Ml Auto.injct 0.3 Mg IM UD PRN MAY REPEAT IN 5-15 MINUTES Cetirizine HCl 10 Mg Tablet 10 Mg PO DAILY Tylenol Extra Strength (Acetaminophen) 500 Mg Tablet 1,000 Mg PO Q8H PRN Multivitamin 1 Each Tablet 1 Each PO DAILY Estrace Tablet (Estradiol) 2 Mg Tablet 2 Mg PO DAILY Trazodone HCl 50 Mg Tablet 50 Mg PO HS PRN Omeprazole 20 Mg Capsule.dr 20 Mg PO HS Wegovy (Semaglutide) 2.4 Mg/0.75 Ml Pen.injctr 2.4 Mg SQ SAT Instructions to patient/family Please see electronic discharge instructions given to patient. ROSALIND DYE DO Oct 06, 2022 10:59
--- NOTE | 2022-10-06 11:13 | Progress Note ---
MANUELRONNY Brent 10/06/22 1113: Progress Note Hospital Course: This is a 46 y/o female who presented to the ED on 09/30/22 with complaints of increasing SOB, difficulty breathing, and hives. She had previously been seen in the ED the weekend prior for similar, but more mild symptoms and had been DC'd after improvement. On history, the only recent change to patient's routine was an increase in mybetriq from 25mg to 50mg recently. At initial visit, it was not thought that the mybetriq change was the cause of the reaction but possibly alpha gal. When the patient took her next dose of mybetriq she noted acute worsening of hives and respiratory symptoms at home. The patient was admitted to the ICU for anaphylaxis with persistent chest tightening and SOB. She was started and maintained on an epi drip due to persistent symptoms and took several days of weaning before becoming fully asymptomatic and independent of epi drip. She last received epi on 10/04. She progressed through the weekend maintaining with IV steroids and anti-histamines and PRN breathing treatments. On 10/06 she was feeling completely back to baseline, had no remaining hives, and no remaining respiratory symptoms and felt comfortable to DC to home. Interval/Subjective: Pt is sitting up in bed. No distress. She reports feeling great, back to baseline. She has been eating and drinking well. OOB to restroom and walking without issue. Feeling some anxiety about going home given everything she has been through but feels ready overall. She is concerned about needing to return to work as she works long hours and is up through it all. Will follow-up with her clinic upon DC home before returning to work. Objective Vital Signs Date Time Temp Pulse Resp B/P (MAP) Pulse Ox O2 Delivery O2 Flow Rate FiO2 10/06/22 09:00 62 20 138/87 (104) 92 Room Air 10/06/22 08:00 99 Room Air 10/06/22 08:00 62 17 151/89 (109) 91 Room Air 10/06/22 07:42 36.1 10/06/22 07:00 62 24 124/75 (91) 93 Room Air 10/06/22 07:00 62 10/06/22 06:00 67 17 133/74 (89) 92 Room Air 10/06/22 05:00 65 19 125/73 (94) 91 Room Air 10/06/22 04:00 68 21 139/91 (107) 93 Room Air 10/06/22 04:00 96 Room Air 10/06/22 03:45 130 10/06/22 03:13 36.4 Room Air 10/06/22 03:00 65 18 139/81 (100) 91 Room Air 10/06/22 02:00 74 23 127/75 (96) 92 Room Air 10/06/22 01:00 63 10/06/22 01:00 63 17 122/73 (89) 93 Room Air 10/06/22 00:00 67 20 127/75 (92) 91 Room Air 10/05/22 23:48 98 Room Air 10/05/22 23:39 36.5 Room Air 10/05/22 23:00 68 21 135/76 (95) 92 Room Air 10/05/22 22:51 Room Air 10/05/22 22:00 69 19 137/73 (88) 91 Room Air 10/05/22 21:00 93 19 121/71 (85) 94 Room Air 10/05/22 20:10 36.1 80 99 21 10/05/22 20:09 87 18 123/72 (91) 98 Room Air 10/05/22 20:08 99 Room Air 10/05/22 20:00 36.1 10/05/22 20:00 99 Room Air 10/05/22 19:15 82 19 130/77 (99) 97 Room Air 10/05/22 19:00 Room Air 10/05/22 19:00 77 10/05/22 18:00 76 24 94 Room Air 10/05/22 17:00 81 24 94 Room Air 10/05/22 16:20 97 Room Air 10/05/22 16:00 36.1 10/05/22 16:00 83 18 94 Room Air 10/05/22 15:05 97 Room Air 10/05/22 15:00 69 20 138/85 (102) 92 Room Air 10/05/22 14:00 75 21 93 Room Air 10/05/22 13:00 76 20 93 Room Air 10/05/22 13:00 81 10/05/22 12:36 98 Room Air 10/05/22 12:00 80 19 93 Room Air I & O 10/06/22 07:00 Intake Total 2175 ml Output Total 3600 ml Balance -1425 ml Physical Exam General: No acute distress, resting comfortably HEENT: EOMI, PERRL, no drainage, pt endorses some phlegm in throat CV: Normal S1/S2, RRR w/o murmur Lungs: CTAB, good air movement, equal chest expansion Abdomen: Soft, nontender, bowel sounds present Extremities: No edema. Peripheral pulses are 2+/4. Skin: No hives present on legs or back as previous, warm, dry, normal color Back: normal inspection, no pain/tenderness Psych: Endorses anxiety, overall normal mood/affect given circumstances Laboratory Tests 10/05/22 03:45 10/06/22 04:10 Radiology: NAME: GUZMAN NEVAREZ [facility] REC#: [id number] PT STATUS: ADM IN : 1975 PHYSICIAN: SERVANDO CARRERO MD ADMIT DATE: 09/30/22/ICU Signed Date of Exam:10/03/22 CHEST 1 VIEW, AP/PA ONLY EXAM: CHEST 1 VIEW, AP/PA ONLY INDICATION: Hypoxia. COMPARISON: None. FINDINGS: Normal heart size. Prominence of interstitium. Patchy airspace opacities, greater on the right. Small left pleural effusion. No pneumothorax. Left PICC tip near the RA/SVC junction. IMPRESSION: Prominence of interstitium, patchy airspace opacities and a small left pleural effusion. Findings are most likely due to a degree of fluid overload. However, an overlying infectious process cannot be excluded. Dictated by: Dictated on workstation # [id number] Dict: 10/03/22 0904 Trans: 10/03/22 1441 [facility] [id number] Interpreted by: BROOKE GUTIERREZ MD Electronically signed by: BROOKE GUTIERREZ MD 10/03/22 1440 Assessment: This is a 46 y/o female admitted for anaphylaxis 2/2 suspected drug adverse reaction (mybetriq) now HD#6 Anaphylaxis - resolved Hypovolemic shock - resolved Respiratory distress/AHRF -Off pressors -Asymptomatic, hives resolved, no itching -Solu-medrol --> transition to PO taper -Claritin, montelukast -Will FU outpatient Obesity Hyperglycemia -On wegovy outpatient -Can wait until steroid taper finished to continue but per outpatient team -Hyperglycemic inpatient after steroid admin -A1c 5.4%. OAB -Will continue to avoid mybetriq -FU with Dr. Briggs in [place] for continued management -May resume estradiol outpatient Anxiety -FU outpatient Dispo: Pt ok to DC today with close FU with primary care provider in the outpatient setting with steroid taper and anti-histamine regimen. ROSALIND DYE DO 10/07/22 0447: Supervisory-Addendum Brief Verification & Attestation Participated in pt care: history, MDM, physical Personally performed: exam, history, MDM, supervision of care Care discussed with: Medical Student Procedures: n/a Results interpretation: Verified all documentation Verification and Attestation of Medical Student E/M Service A medical student performed and documented this service in my presence. I reviewed and verified all information documented by the medical student and made modifications to such information, when appropriate. I personally performed the physical exam and medical decision making. Rosalind Dye, Oct 07, 2022,04:47 RONNY JACKSON Oct 06, 2022 11:13 ROSALIND DYE DO Oct 07, 2022 04:47
[2022-10-06] MEDS ORDERED: FAMOTIDINE 20 MG (PEPCID) TABLET PO SCH ×2 (21:00)
[2022-10-06] MEDS ORDERED: predniSONE 20 MG TAB PO SCH (21:00)
== END 2022-10-06 11:45 | disposition home or self-care (01) | DRG 915 ==
LOC: EDUNIT# 05:05 → ER 05:07 → ICU 11:23
PROVIDERS: ADMIT Family Medicine; ATTEND Internal Medicine
DX: T88.6XXA Anaphylactic reaction due to adverse effect of correct drug or medicament properly administered, initial encounter (principal); J96.01 Acute respiratory failure with hypoxia; E87.20 Acidosis, unspecified; T50.995A Adverse effect of other drugs, medicaments and biological substances, initial encounter; N39.41 Urge incontinence; N31.9 Neuromuscular dysfunction of bladder, unspecified; N32.81 Overactive bladder; E11.65 Type 2 diabetes mellitus with hyperglycemia; T38.0X5A Adverse effect of glucocorticoids and synthetic analogues, initial encounter; G47.33 Obstructive sleep apnea (adult) (pediatric); E66.9 Obesity, unspecified; Z68.37 Body mass index [BMI] 37.0-37.9, adult; R00.0 Tachycardia, unspecified; E87.6 Hypokalemia; K21.9 Gastro-esophageal reflux disease without esophagitis; F41.9 Anxiety disorder, unspecified; H54.7 Unspecified visual loss; Z79.899 Other long term (current) drug therapy
CPT/HCPCS: 36415; 36569; 71045; 76937; 80048; 80053; 80306; 81000; 82010; 82785; 82947; 83036; 83520; 83605; 83735; 83880; 84100; 84484; 85007; 85025; 85027; 85652; 86141; 86160; 86329; 87040; 87081; 93041; 94640